=== PATIENT | female | born 1985 | race Caucasian/White ===

== ENCOUNTER 2018-01-15 09:59 | Emergency (ER) | payer OTHER, SELFPAY ==
[2018-01-15 10:04] VITALS: BP 122/70; PULSE 78; RESP 16; O2SAT 97; BMI 23.9
--- NOTE | 2018-01-15 10:08 | DI.US.S_ITS ---
PROCEDURE: US OB <= 14 WEEKS FETUS INDICATIONS: BLEEDING, CRAMPING OUTSIDE/PRIOR DATING DATA: Last menstrual period (LMP): Unknown. LMP-based estimated date of delivery (GINNY): Unknown. First dating scan (date and location): 01/15/18. Estimated date of delivery (GINNY) from first dating scan: 09/11/18. TECHNIQUE: Real-time scanning was performed of the fetus and maternal pelvic organs, with image documentation. Endovaginal scanning was also performed to better visualize the fetus and maternal ovaries. COMPARISON: None. FINDINGS: Embryo: A single intrauterine is identified. The pole is well visualized, demonstrating heart motion detected at 95 beats per minute. The pole has a crown-rump length that measures approximately 3 mm, corresponding to an estimated gestational age of 5 weeks 6 days. A yolk sac is also well seen. There is a small subchorionic hemorrhage identified, which encompasses approximately 25% of the gestational sac (measuring approximately 0.4 x 0.2 x 1.4 cm). Maternal organs: Ovaries are normal in size. There may be a corpus luteum on the right. Limited images through the kidneys demonstrate no hydronephrosis. IMPRESSION: 1. Single live intrauterine of 5 weeks 6 days (current sonographic due date of 09/11/18). 2. Small subchorionic hemorrhage. Dictated by: Kenneth Carson M.D. on 01/15/2018 at 10:04 Approved by: Kenneth Carson M.D. on 01/15/2018 at 10:07
--- NOTE | 2018-01-15 10:14 | ED.FEMALEGU ---
HPI - Female Genitourinary General Chief complaint: Vaginal Bleeding Stated complaint: pelvic pain with bleeding. 7 weeks Time Seen by Provider: 01/15/18 10:05 Source: patient and family Mode of arrival: ambulatory Limitations: no limitations History of Present Illness HPI Narrative: 32-year-old nonsmoking female presents with her mother for evaluation of vaginal bleeding while . 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 She complains of episodic lower abdominal cramping type pain without provocation or palliation. Additionally she has had minimal spotting for the past day or 2. She has been taking vitamins. She denies any fever or chills but has felt weak, overly tired and nauseated for the past few days. MD Complaint: vaginal bleeding Onset (ago): day(s) Location: suprapubic Female Urogenital Radiation: Non-Radiating Severity: mild Quality: Aching and Cramping Duration: intermittent Relieving factors: none Exacerbating factors: none Vaginal discharge: blood Patient : Yes Associated symptoms: vaginal bleeding Related Data : 1 Para: 0 Home Medications Medication Instructions Recorded Confirmed PNV cmb#95-ferrous fumarate-FA 1 tab PO DAILY 01/15/18 01/15/18 [] Allergies Allergy/AdvReac Type Severity Reaction Status Date / Time Penicillins Allergy Unknown Verified 01/15/18 11:32 Sulfa (Sulfonamide Allergy Unknown Verified 01/15/18 11:32 Antibiotics) narcotics AdvReac Severe IBS Uncoded 01/15/18 11:32 increase Review of Systems Review of Systems All systems reviewed & are unremarkable except as noted in HPI and below Constitutional Denies chills, Denies fever(s), Denies lethargy and Denies weakness Eyes Denies change in vision, Denies eye discharge, Denies irritation and Denies loss of vision ENT Ears, Nose, Mouth, and Throat: Denies change in voice, Denies neck pain and Denies sore throat Cardiovascular Denies chest pain, Denies irregular heart rhythm, Denies lightheadedness, Denies palpitations, Denies dyspnea, Denies dyspnea on exertion and Denies orthopnea Respiratory Denies cough, Denies dyspnea, Denies dyspnea on exertion and Denies wheezing Gastrointestinal Gastrointestinal: Denies abdominal pain, Denies change in bowel habits, Denies diarrhea, Denies nausea and Denies vomiting Genitourinary Reports abnormal vaginal bleeding, Denies hematuria, Denies flank pain, Denies urinary incontinence and Denies urinary urgency Musculoskeletal Denies neck pain Integumentary/Breasts Denies pruritus, Denies erythema, Denies rash and Denies wounds Neurologic Denies confusion, Denies loss of vision and Denies weakness Psychiatric Denies anxiety, Denies confusion, Denies depression, Denies homicidal ideation and Denies suicidal ideation Endocrine Denies palpitations Hematologic/Lymphatic Denies easy bruising Allergic/Immunologic Denies wheezing Exam Narrative Exam Narrative: GENERAL: 32-year-old female obviously very anxious, presents with her mother HEAD: Atraumatic. Normocephalic. No temporal or scalp tenderness. EYES: Pupils equal round and reactive. Extraocular motions intact. No scleral icterus. No injection or drainage. ENT: Nose without bleeding, purulent drainage or septal hematoma. Throat without erythema, tonsillar hypertrophy or exudate. Uvula midline. Airway patent. NECK: Trachea midline. No JVD or lymphadenopathy. Supple, nontender, no meningeal signs. CARDIOVASCULAR: Regular rate and rhythm without murmurs, gallops, or rubs. RESPIRATORY: Clear to auscultation. Breath sounds equal bilaterally. No wheezes, rales, or rhonchi. GASTROINTESTINAL: Abdomen soft, mild tenderness, nondistended. No hepato-splenomegaly, or palpable masses. No guarding. EXTREMITIES: No clubbing, cyanosis, or edema. No joint tenderness, effusion, or edema noted. BACK: Nontender without deformity or crepitance. No flank tenderness. NEURO: AOx3. SKIN: No rash or erythema. Initial Vital Signs Initial Vital Signs: Vital Signs Pulse Rate 78 01/15/18 10:04 Respiratory Rate 16 01/15/18 10:04 Blood Pressure 122/70 01/15/18 10:04 Pulse Oximetry 97 01/15/18 10:04 Course Orders Ordered: ED Orders 01/15/18 10:08 US OB <= 14 weeks fetus Stat 01/15/18 10:20 ABO RH Type Stat Complete Blood Count AUTO DIFF Stat HCG Quantitative Stat Vital Signs - 8 hr 01/15/18 10:04 01/15/18 12:02 Pulse Rate 78 66 Respiratory Rate 16 14 Blood Pressure 122/70 Blood Pressure [Left Arm] 113/57 L Pulse Oximetry 97 100 MDM - Female Genitourinary Medical Records Attestation: I reviewed the patient's medical records. Lab Data Attestation: I reviewed the patient's lab results. Result diagrams: 01/15/18 10:20 Lab Results 01/15/18 01/15/18 01/15/18 Range/Units 10:20 10:20 10:20 WBC 9.0 (4.5-11.0) X10^3/uL RBC 4.62 (4.0-5.2) X10^6/uL Hgb 13.9 (12.0-16.0) g/dL Hct 40.1 (36-46) % MCV 86.7 (80-100) fL MCH 30.0 (26-34) PG MCHC 34.5 (30-36) % RDW 12.7 (11.6-14.8) % Plt Count 216 (150-400) X10^3/uL Neut % (Auto) 65.6 (50-75) % Lymph % (Auto) 29.0 (25-40) % [place] % (Auto) 4.7 (3-14) % Eos % (Auto) 0.2 L (2-4) % Baso % (Auto) 0.5 (0-2) % Neut # (Auto) 5900 (7325-1723) /uL HCG, Quant 44105 mIU/mL Blood Type B Positive Urine Dip Bedside Urine Glucose Negative Bedside Urine Bilirubin - Negative Bedside Urine Ketone - Negative Urine Specific [place] 1.010 Bedside Urine Occult Blood - Negative Bedside Urine pH 6.5 Bedside Urine Protein - Negative Bedside Urine Urobilinogen - Negative Bedside Urine Nitrite - Negative Bedside Urine Leukocytes - Negative Esterase Imaging Data Pelvic US: Radiologist's impression: [address] [address] Ultrasound Report Signed Patient: Vanna Eli AnneMR#: [id number] : 1985Acct:[id number] Age/Sex: 32 / FDate of Service: 01/15/18 Loc: ED Accession Number: [id number] Procedure: US OB <= 14 weeks fetus Ordering Provider: Mike Colby D.O. PROCEDURE: US OB <= 14 WEEKS FETUS INDICATIONS: BLEEDING, CRAMPING OUTSIDE/PRIOR DATING DATA: Last menstrual period (LMP): Unknown. LMP-based estimated date of delivery (GINNY): Unknown. First dating scan (date and location): 01/15/18. Estimated date of delivery (GINNY) from first dating scan: 09/11/18. TECHNIQUE: Real-time scanning was performed of the fetus and maternal pelvic organs, with image documentation. Endovaginal scanning was also performed to better visualize the fetus and maternal ovaries. COMPARISON: None. FINDINGS: Embryo: A single intrauterine is identified. The pole is well visualized, demonstrating heart motion detected at 95 beats per minute. The pole has a crown-rump length that measures approximately 3 mm, corresponding to an estimated gestational age of 5 weeks 6 days. A yolk sac is also well seen. There is a small subchorionic hemorrhage identified, which encompasses approximately 25% of the gestational sac (measuring approximately 0.4 x 0.2 x 1.4 cm). Maternal organs: Ovaries are normal in size. There may be a corpus luteum on the right. Limited images through the kidneys demonstrate no hydronephrosis. IMPRESSION: 1. Single live intrauterine of 5 weeks 6 days (current sonographic due date of 09/11/18). 2. Small subchorionic hemorrhage. Dictated by: Kenneth Carson M.D. on 01/15/2018 at 10:04 Approved by: Kenneth Carson M.D. on 01/15/2018 at 10:07 Discharge Plan Departure Patient Disposition: Home Clinical Impression: Bleeding in early Discharge Date/Time: 01/15/18 12:30 Interventions: ED Discharge Assessment Last Done: 01/15/18 12:29 Instructions: DI for Vaginal Bleeding During Activity Restrictions/Additional Instructions: *You have been diagnosed with [ vaginal bleeding during ] *What to do: * continue to take medications as directed * no intercourse until clearedy by your doctor *Follow up with your OB provider in 2-3 days, call for an appointment. Let them know you were seen in the Emergency Department and that we ask that you be seen in follow up *Return to ER if you should have any new, worsening or concerning symptoms, such as [ increased pain, bleeding through more than 1 pad per hour for multiple hours, other bothersome symptoms] Prescriptions: No Action PNV cmb#95-ferrous fumarate-FA [] 28 mg iron- 800 mcg Tablet 1 tab PO DAILY RF: 0 Referrals: Eva Mendoza MD [Physician] - Marissa Flaherty MD [Primary Care Provider] -
[2018-01-15 10:42] LABS: Add Manual Diff / Slide Review NO; Basophils Percent Auto 0.5 % (0-2); Eosinophils Percent Auto 0.2 % (2-4); Hematocrit 40.1 % (36-46); Hemoglobin 13.9 g/dL (12.0-16.0); Mean Corpuscular HGB Conc 34.5 % (30-36); Mean Corpuscular Volume 86.7 fL (80-100); Monocytes Percent Auto 4.7 % (3-14); Neutrophils Absolute Auto 5900 /uL (3000-5900); Neutrophils Percent Auto 65.6 % (50-75); Platelet Count 216 X10^3/uL (150-400); Red Blood Cell Count 4.62 X10^6/uL (4.0-5.2); Red Cell Distribution Width 12.7 % (11.6-14.8)
[2018-01-15 11:45] LABS: HCG Quantitative /Beta subunit 26391 mIU/mL
[2018-01-15 12:02] VITALS: BP 113/57; PULSE 66; RESP 14; O2SAT 100
== END 2018-01-15 12:30 | disposition home or self-care (01) ==
PROVIDERS: Emergency Provider Emergency Medicine; PCP Family Medicine
DX: O20.9 Hemorrhage in early pregnancy, unspecified (principal); Z3A.01 Less than 8 weeks gestation of pregnancy
CPT/HCPCS: 36415; 76801; 76817; 81003; 84702; 85025; 86900; 86901; 99282; 99284

== ENCOUNTER 2019-10-20 18:01 | Emergency (ER) | payer OTHER, MEDICAID, SELFPAY ==
[2019-10-20 18:13] VITALS: BP 113/76; PULSE 79; RESP 16; TEMP 36.4; O2SAT 100; BMI 22.0
[2019-10-20 20:16] LABS: Add Manual Diff / Slide Review NO; Basophils Absolute Auto 0 /uL (0-100); Basophils Percent Auto 0.5 % (0-2); Eosinophils Absolute Auto 0 /uL (0-450); Eosinophils Percent Auto 0.3 % (2-4); Hematocrit 41.2 % (36-46); Hemoglobin 13.8 g/dL (12.0-16.0); Lymphocytes Absolute Auto 2700 /uL (1100-4500); Mean Corpuscular HGB Conc 33.5 % (30-36); Mean Corpuscular Hemoglobin 29.6 PG (26-34); Mean Corpuscular Volume 88.4 fL (80-100); Monocytes Absolute Auto 300 /uL (0-900); Monocytes Percent Auto 4.3 % (3-14); Neutrophils Absolute Auto 5000 /uL (1500-7000); Neutrophils Percent Auto 61.9 % (50-75); Platelet Count 200 X10^3/uL (150-400); Red Blood Cell Count 4.66 X10^6/uL (4.0-5.2); Red Cell Distribution Width 12.7 % (11.6-14.8); White Blood Cell Count 8.1 X10^3/uL (4.5-11.0)
--- NOTE | 2019-10-20 20:17 | DI.CT.S_ITS ---
PROCEDURE: CT ABDOMEN PELVIS W CON INDICATIONS: L abd and back pain, bloated, hx of IBS TECHNIQUE: After the administration of intravenous contrast, 5 mm thick sections acquired from the diaphragm to the symphysis. 5 mm coronal and sagittal reformats were acquired. For radiation dose reduction, the following was used: automated exposure control, adjustment of mA and/or kV according to patient size. COMPARISON: None. FINDINGS: Image quality: Excellent. ABDOMEN: Lung bases: Lung bases are clear. Heart size is normal. Solid organs: Liver is normal in size and enhancement. Gallbladder is unremarkable . Biliary system is non dilated. Pancreas enhances normally. Spleen is normal in size and enhancement. No adrenal nodules. Kidneys demonstrate normal size and enhancement, without hydronephrosis. Peritoneum and bowel: Bowel loops demonstrate normal wall thickness and caliber. The appendix is thin walled and gas filled. A moderate amount of stool is present throughout the colon. No free fluid or air. Nodes and vessels: No retroperitoneal or mesenteric adenopathy by size criteria. Aorta and inferior vena cava are normal in size. Miscellaneous: No ventral hernias. PELVIS: Genitourinary: Bladder wall thickness is normal. The uterus and right ovary are unremarkable. There is a crenulated appearing left ovarian cyst suggesting recent follicular cyst rupture. Miscellaneous: No inguinal hernias or adenopathy. Bones: No suspicious bony lesions. No vertebral body compression fractures. IMPRESSION: 1. No acute intra-abdominal findings. Normal appendix. 2. Moderate amount of stool throughout the colon suggesting constipation. 3. Crenulated left ovarian cysts suggesting recent follicular cyst rupture. Dictated by: Loree Leggett M.D. on 10/20/2019 at 20:56 Approved by: Loree Leggett M.D. on 10/20/2019 at 21:01
[2019-10-20 20:34] LABS: Lactate (Lactic Acid) 0.7 mmol/L (0.7-2.1)
[2019-10-20 20:35] LABS: Alanine Aminotransferase 17 IU/L (<35); Albumin 4.6 g/dL (3.5-5.0); Albumin Globulin Ratio 1.6 (1.0-2.8); Alkaline Phosphatase 61 U/L (38-126); Aspartate Aminotransferase 25 IU/L (14-36); BUN Creatinine Ratio 22.8 (6-22); Bilirubin Total 0.5 mg/dL (0.2-1.3); Blood Urea Nitrogen 13 mg/dL (7-17); Calcium 9.4 mg/dL (8.4-10.2); Carbon Dioxide 26 mmol/L (22-32); Chloride 103 mmol/L (98-107); Estimated Glomerular Filt Rate > 60.0 mL/min (>60); Globulin 2.9 g/dL (1.7-4.1); Glucose 84 mg/dL (70-100); HEMOLYSIS < 15 (0-50); Lipase 65 U/L (23-300); Potassium 4.1 mmol/L (3.4-5.1); Sodium 137 mmol/L (137-145); Total Protein 7.5 g/dL (6.3-8.2)
--- NOTE | 2019-10-20 21:43 | ED.ABDPAIN ---
HPI - Abdominal Pain <TRACE Angeles - Last Filed: 10/20/19 22:06> General Chief Complaint: Abdominal Pain Stated Complaint: states abdominal pain Time Seen by Provider: 10/20/19 19:28 Source: patient Mode of arrival: Ambulatory Limitations: no limitations History of Present Illness HPI narrative: This is a 34-year-old female, nonsmoker, who has history of IBS predominantly diarrhea with occasional constipation presents to ED with chief complain of abdominal pain for last 3 weeks. Patient reports he started as left lower quadrant pain now pain is diffuse but mostly in bilateral in lower abdomen and feeling bloated and radiating to bilateral low back. She describes her pain as intermittent and pain improves when she is in position and nothing improves the pain. She felt sweaty and flushed today but denies fever, chills, nausea or vomiting, diarrhea. She had normal bowel movement without blood at 4:00 p.m. today. She takes daily spoonful psyllium to prevent constipation. She denies urinary symptoms such as dysuria, frequency, urgency, hematuria. She reports normal appetite. She had colonoscopy in 2011 and endoscopy in 2012 at [facility] had with normal results. She had delivered her daughter 13 months ago by forceps assisted and is nursing. She has recurring menstruation but it has been very irregular. LMP September 2019 and she had it for 3 weeks alternating from heavy vaginal bleeding to very light spotting for at least 2-3 cycles. She reports occasional unusual vaginal discharge with mucousy looking with odor. She reports has an appointment with her primary care physician Dr. veliz and [facility] next week. Related Data Home Medications Medication Instructions Recorded Confirmed PNV cmb#95-ferrous fumarate-FA 1 tab PO DAILY 01/15/18 02/16/18 [] cholecalciferol (vitamin D3) 25 1,000 unit PO DAILY 02/16/18 02/16/18 mcg (1,000 unit) capsule omega-3 fatty acids 1,000 mg 1,000 mg PO DAILY 02/16/18 02/16/18 capsule Allergies Allergy/AdvReac Type Severity Reaction Status Date / Time Penicillins Allergy Unknown Verified 02/16/18 16:39 Sulfa (Sulfonamide Allergy Unknown Verified 02/16/18 16:39 Antibiotics) narcotics AdvReac Severe IBS Uncoded 02/16/18 16:39 increase Review of Systems <TRACE Angeles - Last Filed: 10/20/19 22:06> Review of Systems Narrative: General: See HPI HEENT: Denies sinus pain, ear pain, sore throat, difficulty swallowing, dizziness. Respiratory: Denies dyspnea, cough, wheezing, hemoptysis, sputum. Cardiovascular: Denies chest pain, palpitations, orthopnea, edema. Gastrointestinal: See HPI : Denies dysuria, frequency, incontinence, hematuria, urinary retention. Musculoskeletal: Denies weakness, joint pain or bony pain. Skin: Denies rash, skin lesions, or other. Neurologic: Denies weakness, headache, numbness, change in speech, confusion, seizures, incoordination. Psychiatric: No concerning psychosocial issues. 12-point review of systems is negative except for those stated above. Patient History <TRACE Angeles - Last Filed: 10/20/19 22:06> Medical History IBS (irritable bowel syndrome) (Acute) Social History Smoking Status: Never smoker Smoking Status: Never smoker Substance Use Type: does not use Exam <TRACE Angeles - Last Filed: 10/20/19 22:06> Narrative Exam Narrative: GEN: Alert, oriented x 3, well appearing and nourished, and in no acute distress. Head: Normal cephalic, atraumatic. No scalp or temporal tenderness, palpable mass or rash. EYES: Pupils are equal, round, and reactive to light and accommodation. Extraocular muscles are intact bilaterally. There is no subconjunctival hemorrhage, exudate and sclera non-icteric. ENT: Hearing grossly intact. Nose without bleeding, purulent discharge or deviation. Mucous membrane moist, no mucosal lesion. Throat without erythema, tonsillar hypertrophy or exudate. Uvula in midline, airway patent. Neck: Trachea in midline. No JVD, non-tender without lymphadenopathy. No masses or thyroid megaly. Supple, non-tender and no meningeal signs. CARDIAC: Normal regular rate and rhythm without murmurs, gallops, or rubs. No chest wall tenderness. No peripheral edema, cyanosis or pallor. Capillary refill is less than 2 seconds. RESPIRATORY: Lungs are clear to auscultate bilaterally. No cough, wheezes, rales, or rhonchi. No stridor, respiratory distress, increase work of breathing, or accessary muscle used. ABD: Abdomen soft but mildly distended. No guarding or rebound tenderness to palpate. Tender to palpate in bilateral lower quadrants. Bowel sounds are normal in all 4 quadrants. There is no palpable masses or organomegaly. EXT: Full painless ROM of all extremities with no loss of sensation, strength, effusion or edema. SKIN: Warm, dry, normal color for patient. No erythema, lesions or rash over visible areas. BACK: Nontender without deformity or crepitance. No flank tenderness. NEUROLOGICAL: Alert and oriented to place, time and person. Sensation and motor function intact bilaterally. No facial droops, dysphasia. PSYCHIATRIC: Good judgement and reason, without hallucinations, abnormal affect or abnormal behaviors during the examination. Patient is not suicidal. Initial Vital Signs Initial Vital Signs: Vital Signs Temperature 97.6 F 10/20/19 18:13 Pulse Rate 79 10/20/19 18:13 Respiratory Rate 16 10/20/19 18:13 Blood Pressure 113/76 10/20/19 18:13 Pulse Oximetry 100 10/20/19 18:13 External Female Exam: normal external appearance Speculum Exam - Vagina: normal appearance of the vagina, normal vaginal discharge and nontender Speculum Exam - Cervix: normal appearance of the cervix and nontender Bimanual Exam- Vagina & Uterus: normal palpation, uterine mobility normal, No tender and soft Bimanual Exam- Adnexa, other: tender on the left and no masses noted <Mike Colby DO - Last Filed: 10/21/19 03:46> Initial Vital Signs Initial Vital Signs: Vital Signs Temperature 97.6 F 10/20/19 18:13 Pulse Rate 79 10/20/19 18:13 Respiratory Rate 16 10/20/19 18:13 Blood Pressure 113/76 10/20/19 18:13 Pulse Oximetry 100 10/20/19 18:13 Scores <TRACE Angeles - Last Filed: 10/20/19 22:06> GCS [place] coma scale eye opening: Spontaneous [place] coma scale verbal response: Orientated [place] coma scale motor response: Obey commands [place] coma scale total score: 15 qSOFA Altered Mental Status (GCS <15): No Respiratory rate greater than/equal to 22: No Systolic blood pressure less than or equal to 100: No qSOFA Total: 0 0-1 Not High Risk 1-3 High risk Course <Joe Copeland TRACE - Last Filed: 10/20/19 22:06> Orders Ordered: ED Orders 10/20/19 20:07 Complete Blood Count AUTO DIFF Stat Comprehensive Metabolic Panel Stat Lactate (Lactic Acid) Stat Lipase Stat 10/20/19 20:17 CT abdomen pelvis w con Stat 10/20/19 21:34 Genital Culture Stat Wet Prep Tric BV Christen Stat Vital Signs Vital signs: Vital Signs - 8 hr 10/20/19 22:15 Pulse Rate 66 Respiratory Rate 14 Blood Pressure 111/72 Pulse Oximetry 99 <Mike Colby DO - Last Filed: 10/21/19 03:46> Orders Ordered: ED Orders 10/20/19 20:07 Complete Blood Count AUTO DIFF Stat Comprehensive Metabolic Panel Stat Lactate (Lactic Acid) Stat Lipase Stat 10/20/19 20:17 CT abdomen pelvis w con Stat 10/20/19 21:34 Genital Culture Stat Wet Prep Tric BV Christen Stat Vital Signs Vital signs: Vital Signs - 8 hr 10/20/19 22:15 Pulse Rate 66 Respiratory Rate 14 Blood Pressure 111/72 Pulse Oximetry 99 MDM - Abdominal Pain <Joe CopelandTRACE - Last Filed: 10/20/19 22:06> Differential Diagnosis Differential diagnosis: Likely abdominal pain, acute appendicitis, constipation and other (Ovarian cyst, ovarian torsion, diverticulitis, diverticulosis, colitis) Medical Records Attestation: I reviewed the patient's medical records. Lab Data Attestation: I reviewed the patient's lab results. Result diagrams: 10/20/19 20:07 10/20/19 20:07 Labs: Lab Results 10/20/19 10/20/19 10/20/19 Range/Units 20:07 20:07 20:07 WBC 8.1 (4.5-11.0) X10^3/uL RBC 4.66 (4.0-5.2) X10^6/uL Hgb 13.8 (12.0-16.0) g/dL Hct 41.2 (36-46) % MCV 88.4 (80-100) fL MCH 29.6 (26-34) PG MCHC 33.5 (30-36) % RDW 12.7 (11.6-14.8) % Plt Count 200 (150-400) X10^3/uL Neut % (Auto) 61.9 (50-75) % Lymph % (Auto) 33.0 (25-40) % [place] % (Auto) 4.3 (3-14) % Eos % (Auto) 0.3 L (2-4) % Baso % (Auto) 0.5 (0-2) % Neut # (Auto) 5000 (7538-9089) /uL Lymph # (Auto) 2700 (5665-6660) /uL [place] # (Auto) 300 (0-900) /uL Eos # (Auto) 0 (0-450) /uL Baso # (Auto) 0 (0-100) /uL Sodium 137 (137-145) mmol/L Potassium 4.1 (3.4-5.1) mmol/L Chloride 103 (98-107) mmol/L Carbon Dioxide 26 (22-32) mmol/L BUN 13 (7-17) mg/dL Creatinine 0.57 (0.52-1.04) mg/dL Estimated GFR > 60.0 (>60) mL/min BUN/Creatinine Ratio 22.8 H (6-22) Glucose 84 (70-100) mg/dL Lactate 0.7 (0.7-2.1) mmol/L Calcium 9.4 (8.4-10.2) mg/dL Total Bilirubin 0.5 (0.2-1.3) mg/dL AST 25 (14-36) IU/L ALT 17 (<35) IU/L Alkaline Phosphatase 61 (38-126) U/L Total Protein 7.5 (6.3-8.2) g/dL Albumin 4.6 (3.5-5.0) g/dL Globulin 2.9 (1.7-4.1) g/dL Albumin/Globulin Ratio 1.6 (1.0-2.8) Lipase 65 (23-300) U/L Point of care testing: Point of Care Testing Test Results Negative Urine Dip Bedside Urine Glucose Negative Bedside Urine Bilirubin - Negative Bedside Urine Ketone - Negative Urine Specific [place] 1.010 Bedside Urine Occult Blood - Negative Bedside Urine pH 6.0 Bedside Urine Protein - Negative Bedside Urine Urobilinogen - Negative Bedside Urine Nitrite - Negative Bedside Urine Leukocytes - Negative Esterase Imaging Data CT scan - abdomen/pelvis: Radiologist's Impression: [address] [address] [address] Scan Report Signed Patient: Vanna ElieMR#: [id number] : 1985Acct:[id number] Age/Sex: 34 / FDate of Service: 10/20/19 Loc: ED Accession Number: [id number] Procedure: CT abdomen pelvis w con Ordering Provider: Joe Copeland PROCEDURE: CT ABDOMEN PELVIS W CON INDICATIONS: L abd and back pain, bloated, hx of IBS TECHNIQUE: After the administration of intravenous contrast, 5 mm thick sections acquired from the diaphragm to the symphysis. 5 mm coronal and sagittal reformats were acquired. For radiation dose reduction, the following was used: automated exposure control, adjustment of mA and/or kV according to patient size. COMPARISON: None. FINDINGS: Image quality: Excellent. ABDOMEN: Lung bases: Lung bases are clear. Heart size is normal. Solid organs: Liver is normal in size and enhancement. Gallbladder is unremarkable . Biliary system is non dilated. Pancreas enhances normally. Spleen is normal in size and enhancement. No adrenal nodules. Kidneys demonstrate normal size and enhancement, without hydronephrosis. Peritoneum and bowel: Bowel loops demonstrate normal wall thickness and caliber. The appendix is thin walled and gas filled. A moderate amount of stool is present throughout the colon. No free fluid or air. Nodes and vessels: No retroperitoneal or mesenteric adenopathy by size criteria. Aorta and inferior vena cava are normal in size. Miscellaneous: No ventral hernias. PELVIS: Genitourinary: Bladder wall thickness is normal. The uterus and right ovary are unremarkable. There is a crenulated appearing left ovarian cyst suggesting recent follicular cyst rupture. Miscellaneous: No inguinal hernias or adenopathy. Bones: No suspicious bony lesions. No vertebral body compression fractures. IMPRESSION: 1. No acute intra-abdominal findings. Normal appendix. 2. Moderate amount of stool throughout the colon suggesting constipation. 3. Crenulated left ovarian cysts suggesting recent follicular cyst rupture. Dictated by: Loree Leggett M.D. on 10/20/2019 at 20:56 Approved by: Loree Leggett M.D. on 10/20/2019 at 21:01 [facility] Narrative Medical decision making narrative: This is a healthy 34 year female who has history of IBS and vaginal delivery with forceps assisted 13 months ago presents to ED with abdominal pain for last 3 weeks. Urine test was negative, urine test without indications for UTI. No CVA tenderness or mid spinal tenderness. Abdomen was soft but tender to palpate in left lower quadrant with mild distension and intact bowel sounds in all quadrants. Patient is afebrile with within normal range of vital signs. Lab tests charge are assuring without leukocytosis, normal chemistry test and normal lactate. Considered pelvic ultrasound but given patient has history of IBS abdominal/pelvic CT was ordered at this time. CT test indicates moderate amount of stool throughout the colon suggesting constipation with normal appendix. It is indicated cranial rated left ovarian cyst suggesting recent follicular cyst rupture. Vaginal/pelvic physical exam was unremarkable but tender to palpate in left ovary. No cervical motion tenderness or uterine tenderness. Genital culture is pending. Wet prep was negative for clue cells, yeast or Trichomonas. Patient informed that she will receive a phone call from us if she requires antibiotic medication treatment. Advised to take over the counter Tylenol and or Motrin as needed for discomfort. Return precautions were discussed with patient and patient advised to follow-up with her primary care physician next week as scheduled. Patient verbalized understanding and agreement with treatment plan. <Mike Colby, DO - Last Filed: 10/21/19 03:46> Lab Data Labs: Lab Results 10/20/19 10/20/19 10/20/19 Range/Units 20:07 20:07 20:07 WBC 8.1 (4.5-11.0) X10^3/uL RBC 4.66 (4.0-5.2) X10^6/uL Hgb 13.8 (12.0-16.0) g/dL Hct 41.2 (36-46) % MCV 88.4 (80-100) fL MCH 29.6 (26-34) PG MCHC 33.5 (30-36) % RDW 12.7 (11.6-14.8) % Plt Count 200 (150-400) X10^3/uL Neut % (Auto) 61.9 (50-75) % Lymph % (Auto) 33.0 (25-40) % [place] % (Auto) 4.3 (3-14) % Eos % (Auto) 0.3 L (2-4) % Baso % (Auto) 0.5 (0-2) % Neut # (Auto) 5000 (8417-3335) /uL Lymph # (Auto) 2700 (4962-9290) /uL [place] # (Auto) 300 (0-900) /uL Eos # (Auto) 0 (0-450) /uL Baso # (Auto) 0 (0-100) /uL Sodium 137 (137-145) mmol/L Potassium 4.1 (3.4-5.1) mmol/L Chloride 103 (98-107) mmol/L Carbon Dioxide 26 (22-32) mmol/L BUN 13 (7-17) mg/dL Creatinine 0.57 (0.52-1.04) mg/dL Estimated GFR > 60.0 (>60) mL/min BUN/Creatinine Ratio 22.8 H (6-22) Glucose 84 (70-100) mg/dL Lactate 0.7 (0.7-2.1) mmol/L Calcium 9.4 (8.4-10.2) mg/dL Total Bilirubin 0.5 (0.2-1.3) mg/dL AST 25 (14-36) IU/L ALT 17 (<35) IU/L Alkaline Phosphatase 61 (38-126) U/L Total Protein 7.5 (6.3-8.2) g/dL Albumin 4.6 (3.5-5.0) g/dL Globulin 2.9 (1.7-4.1) g/dL Albumin/Globulin Ratio 1.6 (1.0-2.8) Lipase 65 (23-300) U/L Point of care testing: Point of Care Testing Test Results Negative Urine Dip Bedside Urine Glucose Negative Bedside Urine Bilirubin - Negative Bedside Urine Ketone - Negative Urine Specific [place] 1.010 Bedside Urine Occult Blood - Negative Bedside Urine pH 6.0 Bedside Urine Protein - Negative Bedside Urine Urobilinogen - Negative Bedside Urine Nitrite - Negative Bedside Urine Leukocytes - Negative Esterase Discharge Plan Departure Patient Disposition: Home Clinical Impression: Ruptured cyst of left ovary Abdominal pain Qualifiers: Abdominal location: left lower quadrant Qualified Code(s): R10.32 - Left lower quadrant pain Constipation Qualifiers: Constipation type: unspecified constipation type Qualified Code(s): K59.00 - Constipation, unspecified Discharge Date/Time: 10/20/19 22:00 Instructions: Constipation, DI for Ovarian Cyst, DI for Abdominal Pain-Adult Activity Restrictions/Additional Instructions: You have been diagnosed with abdominal pain likely from recently follicular ruptured ovarian cyst and IBS/constipation. Lab tests are assuring. Urine test without indication for infection. Your receive a phone call from us if you require antibiotic medication from vaginal cultures from today.]. What to do: *Take your medications as directed. You can take [id number] Tylenol and or Motrin as needed for discomfort. Try [id number] MiraLax to help with constipation and bloating. *Follow up with your primary care provider in 2-3 days, call for an appointment. Let them know you were seen in the ED and that we asked you to be seen in follow up. *Return to ED if you have any new, worsening, or concerning symptoms, such as [fever, chest pain, breathing difficulty, unable to tolerate fluids, feel like fainting, worsening pain or any acute concerns]. Prescriptions: No Action omega-3 fatty acids [Fish Oil Concentrate] 1,000 mg capsule 1,000 mg PO DAILY RF: 0 cholecalciferol (vitamin D3) 1,000 unit capsule 1,000 unit PO DAILY RF: 0 PNV cmb#95-ferrous fumarate-FA [] 28 mg iron- 800 mcg Tablet 1 tab PO DAILY RF: 0 <Mike Colby DO - Last Filed: 10/21/19 03:46> Cosign ED Attending Cosignature Attestation: I was immediately available in the department for consultation. This documentation has been reviewed and I agree with assessment and plan. Supervised by Mike Colby DO
[2019-10-20 22:15] VITALS: BP 111/72; PULSE 66; RESP 14; O2SAT 99
== END 2019-10-20 22:00 | disposition home or self-care (01) ==
PROVIDERS: Emergency Provider Nurse Practitioner Family; PCP Family Medicine
DX: N83.202 Unspecified ovarian cyst, left side (principal); R10.32 Left lower quadrant pain; K59.00 Constipation, unspecified; Z87.19 Personal history of other diseases of the digestive system
CPT/HCPCS: 36415; 74177; 80053; 81003; 81025; 83605; 83690; 85025; 87070; 87205; 87210; 99283; 99284; Q9967

== ENCOUNTER 2021-08-26 16:24 | Emergency (ER) | payer OTHER, MEDICAID, SELFPAY ==
[2021-08-26 16:35] VITALS: BP 118/79; PULSE 91; RESP 19; TEMP 36.8; O2SAT 97; BMI 23.1
--- NOTE | 2021-08-26 17:54 | DI.US.S_ITS ---
PROCEDURE: US PELVIC COMPLETE INDICATIONS: left pelvic pain TECHNIQUE: Real-time scanning was performed of the pelvic organs, with image documentation. Additional endovaginal scanning was necessary due to incomplete visualization of the adnexal and endometrial structures by transabdominal scanning. COMPARISON: [facility], CT, CT ABDOMEN PELVIS W CON, 10/20/2019, 20:43. FINDINGS: Uterus: Uterus is anteverted and normal in size at 9.5 x 3.0 x 4.4 cm. The myometrium is homogeneous. The endometrium measures 7.6 mm combined thickness. Ovaries: The right ovary measures 2.4 x 2.0 x 1.7 cm. The left ovary measures 3.8 x 2.9 x 3.2 cm. The ovaries have a normal sonographic appearance. Less than 12 follicles can be seen in each ovary. There is a cyst in the left ovary measuring 2.2 x 1.7 x 2.2 cm, compatible with a dominant ovarian follicle. No adnexal masses are seen. Other: No pathologic free abdominal or pelvic fluid. IMPRESSION: 1. A 2.2 x 1.7 x 2.2 cm cyst in the left ovary, compatible with a dominant ovarian follicle. 2. Normal uterus and right ovary. We strive to produce accurate, complete, and clear reports of imaging services. To assist us in improving patient care, this report was composed using standard report templates and voice recognition software. Therefore, it may contain abnormal punctuation, insertions and/or omissions. Occasional wrong-word or sound-alike substitutions may occur. Though we review the report and make efforts to correct it, we do recommend that the report be read carefully in proper context to recognize any text inaccuracies. Dictated by: Jnoah Trimble M.D. on 08/26/2021 at 19:44 Approved by: Jonah Trimble M.D. on 08/26/2021 at 19:47
--- NOTE | 2021-08-26 18:04 | ED.ABDPAIN ---
HPI - Abdominal Pain <Ankita Marie SENIOR ANIMATOR - Last Filed: 08/26/21 20:07> General Chief Complaint: Abdominal Pain Stated Complaint: abdominal pain-no fever since friday Time Seen by Provider: 08/26/21 16:52 Source: patient Mode of arrival: Family Vehicle History of Present Illness HPI narrative: This is a 36-year-old female who presents to the emergency department complaining of left pelvic and right upper quadrant pain for the last three days and this has been worsening. She states that she has a history of pelvic pain and thinks that she likely has endometriosis. She states that she is currently ovulating, is not on control, is monogamous with her partner, she is and three years . She states that she is having normal bowel movements, had two yesterday and one bowel movement today, denies any vomiting or diarrhea. Denies any blood in her urine or her stool, denies any dysuria, flank pain, shortness of breath, difficulty breathing, or other new concern. She states that she normally takes ibuprofen and Tylenol for this pain which she states occurs every two weeks but this time it is worse than usual, and her Tylenol and ibuprofen did not work. Patient states that she has a history of IBS but this is under control she has not had the symptoms recently. She states that she has a history of ovarian cysts, one as large as a tennis ball, all with spontaneous rupture is without any intervention. She denies any history of abdominal surgery, states that she has all of her organs. She is pending a laparoscopic evaluation for endometriosis in October. She denies any abnormal vaginal discharge, states that she has painful intercourse so she is not sexually active currently. Related Data Home Medications Medication Instructions Recorded Confirmed vit no.95-ferrous 1 tab PO DAILY 01/15/18 02/16/18 fumarate 28 mg-folic acid 800 mcg tablet () cholecalciferol (vitamin D3) 25 1,000 unit PO DAILY 02/16/18 02/16/18 mcg (1,000 unit) capsule omega-3 fatty acids 1,000 mg 1,000 mg PO DAILY 02/16/18 02/16/18 capsule (Fish Oil Concentrate) Previous Rx's Medication Instructions Recorded hydrocodone 5 mg-acetaminophen 325 1 tab PO TID PRN pain #10 tabs 06/19/22 mg tablet ketorolac 10 mg tablet 10 mg PO Q8H PRN pain #20 tabs 08/26/21 ondansetron HCl 4 mg tablet 4 mg PO DAILY PRN nausea and 08/26/21 vomiting #10 tabs Allergies Allergy/AdvReac Type Severity Reaction Status Date / Time Penicillins Allergy Unknown Verified 08/26/21 16:34 Sulfa (Sulfonamide Allergy Unknown Verified 08/26/21 16:34 Antibiotics) narcotics AdvReac Severe IBS Uncoded 08/26/21 16:34 increase Review of Systems <TRACE Segal - Last Filed: 08/26/21 20:07> Review of Systems Narrative: General: denies fever, chills, malaise, sweats, fatigue Head/Neck: denies headache, neck pain, dizziness Eyes: denies visual changes, eye pain Cardio: denies chest pain, palpitations, edema Respiratory: denies dyspnea, cough, orthopnea GI: Endorses abdominal pain primarily left lower pelvic and right upper without vomiting, or diarrhea, endorses nausea with significant pain but none currently : denies dysuria, hematuria, urinary retention, frequency or incontinence MSK: denies joint pain, muscle weakness Skin: denies rash, itching, skin lesions or other Neuro: denies numbness, tingling Patient History <TRACE Segal - Last Filed: 08/26/21 20:07> Medical History (Updated 08/26/21 @ 19:25 by TRACE Segal) IBS (irritable bowel syndrome) Social History Smoking Status: Never smoker Smoking Status: Never smoker Substance Use Type: does not use Exam <TRACE Segal - Last Filed: 08/26/21 20:07> Narrative Exam Narrative: Independently reviewed vitals signs and nursing notes. General: cooperative, comfortable, in no acute distress, well groomed Head: atraumatic, symmetrical facial expressions Neck: supple Eyes: equal round and reactive, EOMI, conjunctiva normal Nose: nares patent, no rhinorrhea Mouth/Throat: moist mucus membranes Cardiovascular: regular rate and rhythm, no peripheral edema, warm extremities Respiratory: normal effort, able to speak in complete sentences, no audible wheezing, stridor, or rales. No retractions or tachypnea. GI: tender to palpation or her left pelvic region and ovary, soft abdomen, nondistended, no masses, no exquisite tenderness with exam, without guarding or rebound. MSK: moves all extremities, neurovascularly intact, no weakness, normal tone Skin: brisk capillary refill, no rash, no erythema Neuro: normal speech and cognition, A&O x3 Psych: mental status is grossly normal, congruent mood, normal affect, pleasant and cooperative Initial Vital Signs Initial Vital Signs: Vital Signs Temperature 98.2 F 08/26/21 16:35 Pulse Rate 91 H 08/26/21 16:35 Respiratory Rate 08/26/21 16:35 Blood Pressure 118/79 08/26/21 16:35 Pulse Oximetry 97 08/26/21 16:35 Oxygen Delivery Method 08/26/21 16:35 <Sheila Zepeda DO - Last Filed: 08/26/21 23:15> Initial Vital Signs Initial Vital Signs: Vital Signs Temperature 98.2 F 08/26/21 16:35 Pulse Rate 91 H 08/26/21 16:35 Respiratory Rate 08/26/21 16:35 Blood Pressure 118/79 08/26/21 16:35 Pulse Oximetry 97 08/26/21 16:35 Oxygen Delivery Method 08/26/21 16:35 Course <TRACE Segal - Last Filed: 08/26/21 20:07> Orders Ordered: ED Orders 08/26/21 17:54 US pelvic complete Stat 08/26/21 18:20 Complete Blood Count AUTO DIFF Stat Comprehensive Metabolic Panel Stat HCG Quantitative /Beta subunit Stat Lipase Stat Discontinued Medications Hydrocodone Bitart/Acetaminophen (Hydrocodone/Acet 5/325 Tablet) 1 tab PO NOW ONE Stop: 08/26/21 17:55 Last Admin: 08/26/21 18:28 Dose: 1 tab Documented By: BERRY Ketorolac Tromethamine (Ketorolac 30 Mg/Ml Vial) 15 mg IV NOW ONE Stop: 08/26/21 17:55 Last Admin: 08/26/21 18:28 Dose: 15 mg Documented By: BERRY Ondansetron HCl (Ondansetron 4 Mg/2 Ml Inj) 4 mg IV NOW ONE Stop: 08/26/21 17:55 Last Admin: 08/26/21 18:28 Dose: 4 mg Documented By: CTS Vital Signs Vital signs: Vital Signs - 8 hr 08/26/21 16:35 08/26/21 19:52 Temperature 98.2 F Pulse Rate 91 H 62 Respiratory Rate 19 16 Blood Pressure 118/79 114/82 Pulse Oximetry 97 100 Oxygen Delivery Method Room Air Room Air <Sheila Zepeda DO - Last Filed: 08/26/21 23:15> Orders Ordered: ED Orders 08/26/21 17:54 US pelvic complete Stat 08/26/21 18:20 Complete Blood Count AUTO DIFF Stat Comprehensive Metabolic Panel Stat HCG Quantitative /Beta subunit Stat Lipase Stat Discontinued Medications Hydrocodone Bitart/Acetaminophen (Hydrocodone/Acet 5/325 Tablet) 1 tab PO NOW ONE Stop: 08/26/21 17:55 Last Admin: 08/26/21 18:28 Dose: 1 tab Documented By: BERRY Ketorolac Tromethamine (Ketorolac 30 Mg/Ml Vial) 15 mg IV NOW ONE Stop: 08/26/21 17:55 Last Admin: 08/26/21 18:28 Dose: 15 mg Documented By: BERRY Ondansetron HCl (Ondansetron 4 Mg/2 Ml Inj) 4 mg IV NOW ONE Stop: 08/26/21 17:55 Last Admin: 08/26/21 18:28 Dose: 4 mg Documented By: CTS Vital Signs Vital signs: Vital Signs - 8 hr 08/26/21 16:35 08/26/21 19:52 Temperature 98.2 F Pulse Rate 91 H 62 Respiratory Rate 19 16 Blood Pressure 118/79 114/82 Pulse Oximetry 97 100 Oxygen Delivery Method Room Air Room Air MDM - Abdominal Pain <TRACE Segal - Last Filed: 08/26/21 20:07> Lab Data Result diagrams: 08/26/21 18:20 08/26/21 18:20 Labs: Lab Results 08/26/21 08/26/21 08/26/21 Range/Units 18:20 18:20 18:20 WBC 9.2 (4.5-11.0) X10^3/uL RBC 4.69 (4.0-5.2) X10^6/uL Hgb 14.0 (12.0-16.0) g/dL Hct 40.4 (36-46) % MCV 86.3 (80-100) fL MCH 29.8 (26-34) PG MCHC 34.5 (30-36) % RDW 12.3 (11.6-14.8) % Plt Count 200 (150-400) X10^3/uL Neut % (Auto) 62.3 (50-75) % Lymph % (Auto) 32.3 (25-40) % [place] % (Auto) 4.4 (3-14) % Eos % (Auto) 0.2 L (2-4) % Baso % (Auto) 0.8 (0-2) % Neut # (Auto) 5700 (6705-1630) /uL Lymph # (Auto) 3000 (8238-8580) /uL [place] # (Auto) 400 (0-900) /uL Eos # (Auto) 0 (0-450) /uL Baso # (Auto) 100 (0-100) /uL Sodium 141 (137-145) mmol/L Potassium 3.8 (3.4-5.1) mmol/L Chloride 104 (98-107) mmol/L Carbon Dioxide 28 (22-32) mmol/L BUN 9 (7-17) mg/dL Creatinine 0.66 (0.52-1.04) mg/dL Estimated GFR > 60 (>60) mL/min BUN/Creatinine Ratio 13.6 (6-22) Glucose 98 (70-100) mg/dL Calcium 9.1 (8.4-10.2) mg/dL Total Bilirubin 0.4 (0.2-1.3) mg/dL AST 29 (14-36) IU/L ALT 25 (<35) IU/L Alkaline Phosphatase 39 (38-126) U/L Total Protein 7.6 (6.3-8.2) g/dL Albumin 4.7 (3.5-5.0) g/dL Globulin 2.9 (1.7-4.1) g/dL Albumin/Globulin Ratio 1.6 (1.0-2.8) Lipase 82 (23-300) U/L HCG, Quant < 2.4 mIU/mL Point of care testing: Point of Care Testing Test Results Negative Urine Dip Bedside Urine Glucose Negative Bedside Urine Bilirubin - Negative Bedside Urine Ketone - Negative Urine Specific [place] 1.010 Bedside Urine Occult Blood - Negative Bedside Urine pH 8.0 Bedside Urine Protein - Negative Bedside Urine Urobilinogen - Negative Bedside Urine Nitrite - Negative Bedside Urine Leukocytes - Negative Esterase Imaging Data US - DRY ROLLER: Radiologist's Impression: PROCEDURE:? US PELVIC COMPLETE ? INDICATIONS:? left pelvic pain ? TECHNIQUE:? Real-time scanning was performed of the pelvic organs, with image documentation.? Additional endovaginal scanning was necessary due to incomplete visualization of the adnexal and endometrial structures by transabdominal scanning.? ? COMPARISON:? [facility], CT, CT ABDOMEN PELVIS W CON, 10/20/2019, 20:43. ? FINDINGS:? ?? Uterus:? Uterus is anteverted and normal in size at 9.5 x 3.0 x 4.4 cm. The myometrium is homogeneous. ? The endometrium measures 7.6 mm combined thickness. ? Ovaries:? The right ovary measures 2.4 x 2.0 x 1.7 cm. The left ovary measures 3.8 x 2.9 x 3.2 cm. The ovaries have a normal sonographic appearance. Less than 12 follicles can be seen in each ovary.? There is a cyst in the left ovary measuring 2.2 x 1.7 x 2.2 cm, compatible with a dominant ovarian follicle.? No adnexal masses are seen. ? Other:? No pathologic free abdominal or pelvic fluid. ? ? IMPRESSION:? ? 1. A 2.2 x 1.7 x 2.2 cm cyst in the left ovary, compatible with a dominant ovarian follicle. 2. Normal uterus and right ovary.? ? ? We strive to produce accurate, complete, and clear reports of imaging services. To assist us in improving patient care, this report was composed using standard report templates and voice recognition software. Therefore, it may contain abnormal punctuation, insertions and/or omissions. Occasional wrong-word or sound-alike substitutions may occur. Though we review the report and make efforts to correct it, we do recommend that the report be read carefully in proper context to recognize any text inaccuracies. ? ? Dictated by: Jonah Trimble M.D. on 08/26/2021 at 19:44 ? ? Approved by: Jonah Trimble M.D. on 08/26/2021 at 19:47 ? MDM Narrative Medical decision making narrative: This is a 36-year-old female who presents to emergency department with three days of worsening left pelvic intermittent generalized lower abdominal pain. She denies any abnormal vaginal discharge, states that she has a history of ovarian cysts and is currently being worked up for endometriosis. On exam today she had mild tenderness over the left ovary, she is nontoxic appearing, lab work is negative for any abnormalities. Pelvis ultrasound shows a 2.2 x 1.7 x 2.2 cm cyst in the left ovary compatible with a dominant ovarian follicle. Normal uterus and right ovary. Patient wishes to follow-up with OBGYN for workup for endometriosis. She states that her doctor wanted to perform laparoscopic surgery to evaluate for this. She states that she has seen Dr. Mendoza in the past and would like to follow-up with her if she is able to. Patient is a female without any history of abdominal surgery. She is not currently on any control, states that she has tried IUDs and have all rejected, she has not tried Nexplanon or Depo Provera and is open to trying another modality to help manage her ovarian cyst pain and symptoms that she states she has every two weeks. She denies any infectious symptoms, no fever, no abnormal discharge. She was prescribed Toradol, Zofran, and given hydrocodone for breakthrough pain. She normally uses ibuprofen and Tylenol for her symptoms, today her pain was worsen what Tylenol and ibuprofen cover. No peritoneal signs on abdominal exam. Patient remains p.o. tolerant. Serial abdominal exam without increase in abdominal pain. Given history and exam, low suspicion for acute abdominal process, such as acute cholecystitis, pancreatitis, perforated viscus, atypical appendicitis, colitis, diverticulitis or torsion. Extensive conversation about ER return precautions and need for close follow-up. Patient is appropriate and amenable to discharge home. Vital signs are stable on repeat examination is unremarkable. Patient has been informed of results. Patient has been given strict return to ER precautions for any new or worsening symptoms. Patient understands to follow up closely with outpatient providers as instructed. Patient understands plan and agrees to discharge home. All questions and concerns answered at this time. <Sheila Zepeda, DO - Last Filed: 08/26/21 23:15> Lab Data Labs: Lab Results 08/26/21 08/26/21 08/26/21 Range/Units 18:20 18:20 18:20 WBC 9.2 (4.5-11.0) X10^3/uL RBC 4.69 (4.0-5.2) X10^6/uL Hgb 14.0 (12.0-16.0) g/dL Hct 40.4 (36-46) % MCV 86.3 (80-100) fL MCH 29.8 (26-34) PG MCHC 34.5 (30-36) % RDW 12.3 (11.6-14.8) % Plt Count 200 (150-400) X10^3/uL Neut % (Auto) 62.3 (50-75) % Lymph % (Auto) 32.3 (25-40) % [place] % (Auto) 4.4 (3-14) % Eos % (Auto) 0.2 L (2-4) % Baso % (Auto) 0.8 (0-2) % Neut # (Auto) 5700 (0184-0293) /uL Lymph # (Auto) 3000 (9486-5141) /uL [place] # (Auto) 400 (0-900) /uL Eos # (Auto) 0 (0-450) /uL Baso # (Auto) 100 (0-100) /uL Sodium 141 (137-145) mmol/L Potassium 3.8 (3.4-5.1) mmol/L Chloride 104 (98-107) mmol/L Carbon Dioxide 28 (22-32) mmol/L BUN 9 (7-17) mg/dL Creatinine 0.66 (0.52-1.04) mg/dL Estimated GFR > 60 (>60) mL/min BUN/Creatinine Ratio 13.6 (6-22) Glucose 98 (70-100) mg/dL Calcium 9.1 (8.4-10.2) mg/dL Total Bilirubin 0.4 (0.2-1.3) mg/dL AST 29 (14-36) IU/L ALT 25 (<35) IU/L Alkaline Phosphatase 39 (38-126) U/L Total Protein 7.6 (6.3-8.2) g/dL Albumin 4.7 (3.5-5.0) g/dL Globulin 2.9 (1.7-4.1) g/dL Albumin/Globulin Ratio 1.6 (1.0-2.8) Lipase 82 (23-300) U/L HCG, Quant < 2.4 mIU/mL Point of care testing: Point of Care Testing Test Results Negative Urine Dip Bedside Urine Glucose Negative Bedside Urine Bilirubin - Negative Bedside Urine Ketone - Negative Urine Specific [place] 1.010 Bedside Urine Occult Blood - Negative Bedside Urine pH 8.0 Bedside Urine Protein - Negative Bedside Urine Urobilinogen - Negative Bedside Urine Nitrite - Negative Bedside Urine Leukocytes - Negative Esterase Discharge Plan Departure Patient Disposition: Home Clinical Impression: Ovarian cyst Qualifiers: Laterality: left Qualified Code(s): N83.202 - Unspecified ovarian cyst, left side Instructions: DI for Ovarian Cyst Activity Restrictions/Additional Instructions: *You have been diagnosed with a left-sided ovarian cyst which is likely causing her pain and symptoms. Your lab work is reassuring that there is not any significant infection, abdominal organ problem, kidney problem, liver problem, gallbladder problems or other abdominal problem. I am sorry for your pain, hopefully this improves over the next 1-2 days. Continue to use ibuprofen and Tylenol as needed for your pain. Stay hydrated, use a stool softener if you are having hard stools, this may also cause increased pain. Please call and schedule an appointment for follow-up with Dr. Mendoza from OBGYN. She will be able to see your ultrasound from today. Please use the hydrocodone as needed for breakthrough pain, have called in Toradol which is a strong anti-inflammatory, take this instead of ibuprofen every 8 hours with food and water for pain. You may take Tylenol with this, please do not take over for g of Tylenol 24 hours. Hydrocodone has 325 mg of Tylenol in it. CONTROLLED SUBSTANCE DISCHARGE (Narcotic/benzodiazepine/Flexeril/Phenergan) 1. You have been prescribed narcotic medications, it does have acetaminophen/Tylenol/paracetamol in it, DO NOT TAKE MORE THAN 4,00mg in 24 hours of Tylenol. *Tramadol does not contain tylenol. 2. Please understand that we cannot provide further refills of narcotics, benzodiazepines or controlled substances through the ED and her pain management will need to be through your provider. 3. While on these medications you cannot drive or operate heavy machinery. 4. You cannot sign legal documents or perform any duties such as this. 5. As long as you are taking opiate pain medications he should also be taking a stool softener such as Colace, Dulcolax, MiraLAX or prune juice, to help avoid constipation. *What to do: *Please continue to take your regular medications as directed. [x ] New medication prescriptions sent to your pharmacy: [[facility] ] [ ] New medication written as a paper prescription [ ] No new medications given *Please follow up with your primary care provider in 2-3 days, call for an appointment. Let them know you were seen in the Emergency Department and that we asked that you be seen for follow-up. We will electronically transmit a record of today's note if your PCP is in our system *If you do not have a primary care provider please contact [phone] to establish care with one of [facility] primary care providers. *Return to Emergency Department if you should have any new, worsening or concerning symptoms, such as [fever greater than 101F, chills, worsening pain, persistent vomiting or other bothersome symptoms] Prescriptions: New ondansetron HCl 4 mg tablet 4 mg PO DAILY PRN (Reason: nausea and vomiting) Qty: 10 0RF ketorolac 10 mg tablet 10 mg PO Q8H PRN (Reason: pain) Qty: 20 0RF Rx Instructions: Please use this instead of ibuprofen and take with food and water every 8 hours as needed for pain. hydrocodone-acetaminophen 5-325 mg tablet 1 tab PO TID PRN (Reason: pain) Qty: 10 0RF No Action omega-3 fatty acids [Fish Oil Concentrate] 1,000 mg capsule 1,000 mg PO DAILY cholecalciferol (vitamin D3) 1,000 unit capsule 1,000 unit PO DAILY PNV cmb#95-ferrous fumarate-FA [] 28 mg iron- 800 mcg Tablet 1 tab PO DAILY Referrals: Eva Mendoza MD [Physician] - Marissa Flaherty MD [Primary Care Provider] - Visit Report Forms: Patient Portal/API <Sheila Zepeda DO - Last Filed: 08/26/21 23:15> Cosign ED Attending Ericksonature Attestation: I was immediately available in the department for consultation. Documentation has been reviewed. I agree with assessment and plan.
[2021-08-26] MEDS: KETOROLAC 30 MG/ML VIAL 15 MG IV (18:28)
[2021-08-26] MEDS: HYDROCODONE/ACET 5/325 TABLET 1 TAB PO (18:28)
[2021-08-26] MEDS: ONDANSETRON 4 MG/2 ML INJ IV (18:28)
[2021-08-26 18:44] LABS: Alanine Aminotransferase 25 IU/L (<35); Albumin 4.7 g/dL (3.5-5.0); Albumin Globulin Ratio 1.6 (1.0-2.8); Alkaline Phosphatase 39 U/L (38-126); Aspartate Aminotransferase 29 IU/L (14-36); BUN Creatinine Ratio 13.6 (6-22); Bilirubin Total 0.4 mg/dL (0.2-1.3); Blood Urea Nitrogen 9 mg/dL (7-17); Calcium 9.1 mg/dL (8.4-10.2); Carbon Dioxide 28 mmol/L (22-32); Chloride 104 mmol/L (98-107); Estimated Glomerular Filt Rate > 60 mL/min (>60); Globulin 2.9 g/dL (1.7-4.1); Glucose 98 mg/dL (70-100); HEMOLYSIS 22 (0-50); Lipase 82 U/L (23-300); Potassium 3.8 mmol/L (3.4-5.1); Sodium 141 mmol/L (137-145); Total Protein 7.6 g/dL (6.3-8.2)
[2021-08-26 19:01] LABS: HCG Quantitative /Beta subunit < 2.4 mIU/mL
[2021-08-26 19:06] LABS: Add Manual Diff / Slide Review NO; Basophils Absolute Auto 100 /uL (0-100); Basophils Percent Auto 0.8 % (0-2); Eosinophils Absolute Auto 0 /uL (0-450); Eosinophils Percent Auto 0.2 % (2-4); Hematocrit 40.4 % (36-46); Lymphocytes Absolute Auto 3000 /uL (1100-4500); Lymphocytes Percent Auto 32.3 % (25-40); Mean Corpuscular HGB Conc 34.5 % (30-36); Mean Corpuscular Hemoglobin 29.8 PG (26-34); Mean Corpuscular Volume 86.3 fL (80-100); Monocytes Absolute Auto 400 /uL (0-900); Monocytes Percent Auto 4.4 % (3-14); Neutrophils Absolute Auto 5700 /uL (1500-7000); Neutrophils Percent Auto 62.3 % (50-75); Platelet Count 200 X10^3/uL (150-400); Red Blood Cell Count 4.69 X10^6/uL (4.0-5.2); Red Cell Distribution Width 12.3 % (11.6-14.8); White Blood Cell Count 9.2 X10^3/uL (4.5-11.0)
[2021-08-26 19:52] VITALS: BP 114/82; PULSE 62; RESP 16; O2SAT 100
== END 2021-08-26 19:53 | disposition home or self-care (01) ==
PROVIDERS: Emergency Provider Nurse Practitioner Critical Care Medicine; PCP Family Medicine
DX: N83.202 Unspecified ovarian cyst, left side (principal); R10.11 Right upper quadrant pain
CPT/HCPCS: 36415; 76830; 76856; 80053; 81003; 81025; 83690; 84702; 85025; 96374; 96375; 99284; J1885; J2405

== ENCOUNTER → 2021-09-21 16:34 | Outpatient (CLI) | payer OTHER, MEDICAID, SELFPAY ==
[2021-09-21 17:11] LABS: COVID19 -Nasal RAPID Negative (Negative)
== END ==
PROVIDERS: PCP Family Medicine; Visit Provider Obstetrics & Gynecology
DX: Z01.812 Encounter for preprocedural laboratory examination (principal); Z20.822 Contact with and (suspected) exposure to COVID-19
CPT/HCPCS: 87635; C9803

== ENCOUNTER 2021-09-24 12:36 | Day surgery (SDC) | payer OTHER, MEDICAID, SELFPAY ==
[2021-09-21 08:19] VITALS: BMI 24.0
[2021-09-24] VITALS (11 sets, daily range): BP systolic 92–120; BP diastolic 49–77; PULSE 65–95; RESP 10–17; TEMP 36.2–36.6; O2SAT 95–100; BMI 24.0
--- NOTE | 2021-09-24 | PATH_ITS ---
[facility] Accession Number: [id number] No. of containers..02 Tissue . 01 Material submitted: . PART A: endometrium - ENDOMETRIAL BIOPSY PART B: fallopian tube - LEFT TUBE LESION BIOPSY . 01 Clinical history: . B: POSSIBLE ENDOMETRIOSIS . 01 Diagnosis: A. Endometrial Biopsy: Portions of proliferative endometrium; negative for glandular hyperplasia, cytologic atypia, or malignancy. . B. Left Tube Lesion, Biopsy: Benign fibroconnective and fibroadipose tissue. No endometriosis identified. Additional levels through the block are noncontributory. V 09/27/2021 1237 Local . 01 Electronically signed: . Caroline Ahuja MD, Pathologist NPI- [id number] . 01 Gross description: . Part A: ENDOMETRIAL BIOPSY: Received in formalin are minute fragments of mucoid and hemorrhagic material measuring 0.6 x 0.6 x 0.4 cm in aggregate. Submitted in toto in 1 cassette. Part B: LEFT TUBE LESION BIOPSY: Received in formalin is 1 fragment of sandoval soft tissue measuring 0.4 x 0.2 x 0.2 cm. Specimen is submitted in its entirety in 1 cassette. /KIN 09/25/2021 0142 Local . 01 Pathologist provided ICD-10: R10.2, N94.6 . 01 CPT . 686199, [id number] Specimen Comment: A courtesy copy of this report has been sent to [facility] Pathology Performed at: 01 [facility] [address] [place] [address], [place], [place] [id number] MD Gerard Smith MD Phone: [phone]
[2021-09-24] MEDS: LACTATED RINGERS 1,000 ML 100 ML IV ×2 (13:36→15:37)
--- NOTE | 2021-09-24 13:41 | PM.PREOP ---
Pre-operative Note COVID-19 COVID-19 status: Negative Result date/Date tested (Pos, Neg/Pending): 09/21/21 Criteria for continued procedure: Continuing or worsening of significant or severe pain Interval Note History & Physical reviewed/Exam performed by Physician: Yes Changes to H&P: No
[2021-09-24 13:53] LABS: Add Manual Diff / Slide Review NO; Basophils Absolute Auto 0 /uL (0-100); Basophils Percent Auto 0.7 % (0-2); Eosinophils Absolute Auto 0 /uL (0-450); Eosinophils Percent Auto 0.5 % (2-4); Hematocrit 38.1 % (36-46); Hemoglobin 13.1 g/dL (12.0-16.0); Lymphocytes Absolute Auto 2500 /uL (1100-4500); Lymphocytes Percent Auto 42.1 % (25-40); Mean Corpuscular HGB Conc 34.3 % (30-36); Mean Corpuscular Hemoglobin 29.7 PG (26-34); Mean Corpuscular Volume 86.6 fL (80-100); Monocytes Absolute Auto 400 /uL (0-900); Monocytes Percent Auto 5.9 % (3-14); Neutrophils Absolute Auto 3100 /uL (1500-7000); Neutrophils Percent Auto 50.8 % (50-75); Platelet Count 180 X10^3/uL (150-400); Red Cell Distribution Width 12.3 % (11.6-14.8)
--- NOTE | 2021-09-24 14:58 | SUR.OPER ---
Lithotomy on padded OR bed, head on pillow, arms secured on padded arm boards at <90 degrees abduction. Legs secured in padded yellow fins stirrups. directed and approved by surgeon
[2021-09-24] MEDS: BUPIVACAINE 0.5% (PF) 30 ML, EPINEPHrine 0.15 MG INJ (15:03)
[2021-09-24] MEDS: fentaNYL 100 MCG/2 ML INJ IV ×2 (16:18→16:30)
[2021-09-24] MEDS: OXYCODONE/ACETAMINOPHEN 5/325 TABLET 1 TAB PO (16:37)
--- NOTE | 2021-09-24 17:17 | SUR.PHASEII ---
Medicated for c/o nausea. Surgeon speaking to her.
--- NOTE | 2021-09-24 17:35 | SUR.PHASEII ---
[id number] Surgeon spoke with patient again, showed her the pictures. Nausea resolved
--- NOTE | 2021-09-24 23:33 | P.OP_ITS ---
Operative Date/Time/Diagnoses Date of procedure: 09/24/21 Time of procedure: 15:30 Pre-op diagnosis: 1.chronic cyclic pelvic pain, severe dysmenorrhea 2. episode of inter-menstrual light bleeding Post-op diagnosis: other (1.Cyclical pelvic pain, severe dysmenorrhea. On laparoscopy suspect eondometriosis on colon, focal tubal endometriosis. Thin adhesions colon to left round ligament, left pelvic sidewall 2. Episode of intermenstrual bleeding.) Procedure & Clinicians Procedure: 1. diagnostic laparoscopy, focal ablation of left tubal probable endometriosis, lysis of adhesions 2. Endometrial biopsy Same procedure as scheduled: Yes Indications: 36 yo with over 20 years of severe dysmenorrhea with pain starting several days to a week prior to menses, as well as sometimes severe pain near ovulation. Dysmenorrhea was controlled with OCPs for a while, but she had severe mood changes and reports she was changed to Ortho Evra patch and NuvaRing, both without relief of the dysmenorrhea. On reviewing options, she desired proceeding with diagnostic laparoscopy, possible treatment of endometriosis instead of trial of progesterone or Lupron. She also had a recent episode of intermenstrual spotting. Endometrium was 7.5 mm on ultrasound, no signs of polyp. Consented to endometrial sampling with endometrial biopsy. Surgeon: Shelby Flowers Click Yes if Unassisted: Yes Anesthesia Type: General Operative Notes Findings: On endometrial biopsy uterus sounded to 7.5 cm. On laparoscopy on the left fallopian tube serosal surface there were 2 clear raised lesions that appeared consistent with probable endometriosis. One area was on the mid left fallopian tube and was grasped and removed and sent for pathology. The 2nd area was on the proximal left tube about 1 cm from the cornua and was fulgurated. There were several white patches on the sigmoid colon that were suspicious for endometriosis. General surgeon wood barrel reconditioner called but not available to come visualize or biopsy. The remainder of the pelvis had no visible endometriotic lesions. There were some filmy adhesions from the colon to the lateral left round ligament and left pelvic sidewall and were lysed to free up the colon. The uterus was normal in size, appearance and contour,without any visible endometriosis lesions. The ovaries bilaterally, including inferior surface, were normal in appearance. The left fallopian tube had the 2 focal lesions that appear consistent with clear endometriosis otherwise it was normal in diameter in appearance down to the fimbriated end. The right fallopian tube was normal in appearance down to the fimbriated end. The anterior cul-de-sac was normal, without any endometriosis. the posterior cul-de-sac had no visible endometriosis, but there was small circular peritoneal defect on the left between the uterosacral ligaments. The ovarian fossa and pelvic sidewalls were normal, without signs of endometriosis. Closure Type: primary Specimen(s): other (1. endometrial biopsy 2. Left tubal lesion biopsy, probable endometriosis) Estimated Blood Loss (mL): 5 Blood products transfused: none Procedure in detail: After being properly identified she was transferred to the operating room. After an adequate level of general anesthesia was obtained she was placed in Jeramy stirrups in the dorsal lithotomy position. Bimanual examination was performed. She was prepped and draped in routine sterile fashion. Her bladder was sterilely drained with a rubber catheter with the prep. An open-sided speculum was placed and the cervix was grasped with a single-tooth tenaculum. The endometrial Pipelle was obtained and passed into the uterus without difficulty, with the cervical os being mildly open already. The uterus sounded to 7.5cm. Global endometrial sampling was performed with 3 passes and sent for pathology. The Humi intrauterine manipulator was set to 7.5 cm and passed through the cervix without difficulty. The balloon was insufflated. The tenaculum was removed from the cervix. There was good hemostasis at the tenaculum sites. Attention was then placed to the abdomen where after injection of approximately 1.5 mL 0.5% Marcaine with epinephrine, a small vertical infraumbilical incision was made. The abdomen was elevated and the veres needle was placed. Drop test was performed and Veress needle appeared intraperitoneal. The CO2 gas was connected and opening pressure was 1 mm Hg. The abdomen was insufflated with CO2 gas. The Veress needle was removed and a 5 mm Opti port trocar was placed under direct visualization without difficulty. Intraperitoneal placement was confirmed. The CO2 gas was then connected to the trocar. Upon inspection inferior to the trocar site was atraumatic. There were no visible abdominal or pelvic adhesions at this time. Inspection of the upper abdomen revealed a normal appearing liver and gallbladder. The left upper quadrant appeared normal. A secondary 5 mm trocar was placed in the right lower abdomen, just slightly lower than her umbilical trocar. This was placed after local injection of Marcaine, then incision was made and 5 mm trocar placed under direct visualization. A blunt probe was placed. The uterus was elevated using the Meg and the pelvis was inspected with the above findings. The general surgeon on-call, Dr. Gonzales was called to see if she was available to look at the white lesions on the sigmoid colon, which appeared suspicious for possible endometriosis. She was not available and images were taken to review with her. A 3rd trocar was placed at this time to lyse the left pelvic sidewall adhesions. Approximately 1 ml of the 0.5% Marcaine was placed in the midline suprapubically, a small incision was made and an additional 5 mm trocar was placed under direct visualization. Attention was placed to the left fallopian tube where the clear lesion on the surface of the mid tube was grasped with an atraumatic grasper, it was fairly loose and was pulled off and handed off as specimen. There was a small defect in the serosal surface in this area from removal with a little blood, but no active bleeding. The monopolar J-hook was then placed and the other clear lesion on the proximal left tube was coagulated. NSS irrigation was placed over the tube and repeat inspection revealed good hemostasis. Attention was then placed to the adhesions. With the blunt probe this was inspected and a clear filmy areas of adhesion was noted going from the colon to the very left lateral round ligament and the adjacent lateral left pelvic sidewall. The adhesion was grasped with an atraumatic grasper and using the Power seal device the adhesions were lysed. Good hemostasis was noted. The posterior cul de sac was suctioned of a small amount of fluid. The abdomen was partly desufflated and repeat inspection near the lysed adhesions and the left fallopian tube revealed continued hemostasis and hemostasis throughout the pelvis. The abdomen was then further desufflated. The lower abdominal trocars were removed under direct visualization. After pushing out additional gas, the umbilical trocar was removed. The skin incisions were closed with subcuticular suture of 4-0 Monocryl. Steri-Strips were placed to the 2 lower abdominal incisions and Tegaderm dressing was placed over the incisions. The intrauterine manipulator was removed after desufflating the balloon. The procedure was ended. She tolerated the procedure well and went to recovery room stable condition. Complications: none Post-operative Condition: stable Disposition: PACU Plan for aftercare: Discharge to home from PACU, follow-up in 1-2 weeks.
== END 2021-09-24 17:33 | disposition home or self-care (01) ==
PROVIDERS: PCP Family Medicine; Referring Provider Obstetrics & Gynecology; Visit Provider Obstetrics & Gynecology
PROC: 0U5B4ZZ Destruction of Endometrium, Percutaneous Endoscopic Approach (ICD-10-PCS; CPT 58662; principal; 2021-09-24 13:30)
DX: R10.2 Pelvic and perineal pain (principal); N94.6 Dysmenorrhea, unspecified; N73.6 Female pelvic peritoneal adhesions (postinfective)
CPT/HCPCS: 58662; 36415; 81025; 85025; 86850; 86900; 86901; J0171; J1885; J2250; J3010

== ENCOUNTER 2021-12-06 18:42 | Emergency (ER) | payer OTHER, MEDICAID, SELFPAY ==
[2021-12-06] VITALS (9 sets, daily range): BP systolic 111–121; BP diastolic 68–80; PULSE 63–89; RESP 15–20; TEMP 36.7; O2SAT 99–100
[2021-12-06 20:06] LABS: Add Manual Diff / Slide Review NO; Basophils Absolute Auto 0 /uL (0-100); Basophils Percent Auto 0.6 % (0-2); Eosinophils Absolute Auto 0 /uL (0-450); Eosinophils Percent Auto 0.2 % (2-4); Hematocrit 37.9 % (36-46); Hemoglobin 13.2 g/dL (12.0-16.0); Lymphocytes Absolute Auto 1500 /uL (1100-4500); Lymphocytes Percent Auto 19.7 % (25-40); Mean Corpuscular HGB Conc 34.9 % (30-36); Mean Corpuscular Volume 85.8 fL (80-100); Monocytes Absolute Auto 400 /uL (0-900); Monocytes Percent Auto 4.9 % (3-14); Neutrophils Absolute Auto 5900 /uL (1500-7000); Neutrophils Percent Auto 74.6 % (50-75); Platelet Count 208 X10^3/uL (150-400); Red Blood Cell Count 4.41 X10^6/uL (4.0-5.2); Red Cell Distribution Width 12.2 % (11.6-14.8); White Blood Cell Count 7.8 X10^3/uL (4.5-11.0)
[2021-12-06] MEDS: SODIUM CHLORIDE 0.9% 1,000 ML 1000 ML IV (20:09)
[2021-12-06 20:10] LABS: Alanine Aminotransferase 16 IU/L (<35); Albumin 4.7 g/dL (3.5-5.0); Albumin Globulin Ratio 1.5 (1.0-2.8); Alkaline Phosphatase 50 U/L (38-126); Aspartate Aminotransferase 28 IU/L (14-36); BUN Creatinine Ratio 11.5 (6-22); Bilirubin Total 0.5 mg/dL (0.2-1.3); Blood Urea Nitrogen 7 mg/dL (7-17); Carbon Dioxide 28 mmol/L (22-32); Chloride 103 mmol/L (98-107); Creatine Kinase 79 U/L (30-135); Estimated Glomerular Filt Rate > 60 mL/min (>60); Globulin 3.1 g/dL (1.7-4.1); Glucose 88 mg/dL (70-100); HEMOLYSIS 18 (0-50); Potassium 3.6 mmol/L (3.4-5.1); Sodium 141 mmol/L (137-145); Total Protein 7.8 g/dL (6.3-8.2)
[2021-12-06 20:15] LABS: D Dimer < 215 ng/ml (<500)
[2021-12-06 20:22] LABS: Troponin I < 0.012 ng/mL (0.01-0.034)
[2021-12-06 20:50] LABS: TSH w/ Reflex to FT4 1.97 uIU/mL (0.47-4.68)
[2021-12-06 21:01] LABS: Bacteria Urine None Seen; Culture Indicated Urine Cult Not Indicated; RBC Urine 30-100/HPF (0-5/HPF); Squamous Epithelial Cell Urine 1-5 /HPF (0-5/HPF); WBC Urine 1-5/HPF (0-5/HPF)
--- NOTE | 2021-12-06 22:07 | ED.ARRPALP ---
HPI - Arrhythmia/Palpitations General Chief Complaint: Dizziness Stated Complaint: Heart palpitations, Dizziness Time Seen by Provider: 12/06/21 19:53 Source: patient Mode of arrival: Ambulatory History of Present Illness HPI narrative: 36-year-old female nonsmoker with history of ovarian cysts presents with an episode of rapid heart rate, palpitations that was associated with shortness of breath and lightheadedness earlier today. Patient is asymptomatic on her arrival here. She denies any change in medications or diet. She denies any chest pain, nausea, vomiting or diarrhea. She denies any recent long distance travel, history of blood clot or lower extremity pain, redness or swelling. She denies any dysuria, frequency or urgency. She is currently on her menses but states that is normal for her and not particularly heavy or long induration. She denies any significant alcohol, nicotine or caffeine. She denies use of any street drugs. Related Data Home Medications Medication Instructions Recorded Confirmed vit no.95-ferrous 1 tab PO DAILY 01/15/18 11/20/21 fumarate 28 mg-folic acid 800 mcg tablet () cholecalciferol (vitamin D3) 25 1,000 unit PO DAILY 02/16/18 11/20/21 mcg (1,000 unit) capsule omega-3 fatty acids 1,000 mg 1,000 mg PO DAILY 02/16/18 11/20/21 capsule (Fish Oil Concentrate) vitamin B complex (B 1 tab PO DAILY 09/22/21 11/20/21 Complex-Vitamin B12 tablet) Previous Rx's Medication Instructions Recorded ondansetron HCl 4 mg tablet 4 mg PO DAILY PRN nausea and 08/26/21 vomiting #10 tabs ibuprofen 600 mg tablet 600 mg PO Q6H PRN pain #30 tabs 09/24/21 norethindrone (contraceptive) 0.35 0.35 mg PO DAILY #28 tabs 10/02/21 mg tablet (Ortho Micronor) Allergies Allergy/AdvReac Type Severity Reaction Status Date / Time Penicillins Allergy Intermediate Rash Verified 11/20/21 11:21 Sulfa (Sulfonamide Allergy Intermediate Rash Verified 11/20/21 11:21 Antibiotics) Review of Systems Review of Systems Narrative: GENERAL: See HPI HEENT: Denies sinus pain, ear pain, sore throat, difficulty swallowing, dizziness. RESPIRATORY: Denies dyspnea, cough, wheezing, hemoptysis, sputum. CARDIOVASCULAR: See HPI GASTROINTESTINAL: Denies nausea, vomiting, abdominal pain, diarrhea, constipation, melena. : Denies dysuria, frequency, incontinence, hematuria, urinary retention. MUSCULOSKELETAL: denies weakness, joint pain, or bony pain SKIN: Denies rash, skin lesions, or other NEUROLOGIC: See HPI PSYCHIATRIC: No concerning psychosocial issues. 12 point review of systems is negative except for those stated above Patient History Medical History History of blood transfusion IBS (irritable bowel syndrome) Ovarian cyst Family History Sister PCOS (polycystic ovarian syndrome) Family/Other Endometriosis Social History household members: spouse Smoking Status: Never smoker alcohol intake: current Smoking Status: Never smoker alcohol intake frequency: holidays/special occasions only Substance Use Type: does not use Exam Narrative Exam Narrative: GENERAL: [36] year old patient appears stated age. Well-developed patient, in mild distress. HEAD: Atraumatic. Normocephalic. EYES: Pupils equal round and reactive. Extraocular motions intact. No scleral icterus. No injection or drainage. ENT: Nose without bleeding, purulent drainage. Throat without erythema, tonsillar hypertrophy or exudate. Airway patent. NECK: Trachea midline. Non tender CARDIOVASCULAR: Regular rate and rhythm without murmurs, gallops, or rubs. RESPIRATORY: Clear to auscultation. Breath sounds equal bilaterally. No wheezes, rales, or rhonchi. GASTROINTESTINAL: Abdomen soft, non-tender, nondistended. EXTREMITIES: No edema or joint tenderness. BACK: Nontender without deformity or crepitance. No flank tenderness. NEURO: AOx3. SKIN: No rash or erythema of visible areas Initial Vital Signs Initial Vital Signs: Vital Signs Temperature 98.0 F 12/06/21 19:20 Pulse Rate 89 12/06/21 19:20 Respiratory Rate 18 12/06/21 19:20 Blood Pressure 121/80 12/06/21 19:20 Pulse Oximetry 99 12/06/21 19:20 Oxygen Delivery Method 12/06/21 19:20 Course Orders Ordered: ED Orders 12/06/21 19:28 CBC Auto Diff [Complete Blood Count AUTO DIFF] Stat CMP [Comprehensive Metabolic Panel] Stat D Dimer Stat TSH w/ Reflex to FT4 Stat Troponin & CK Cardiac Panel Stat 12/06/21 20:35 Urine Microscopic Stat Discontinued Medications Sodium Chloride (Normal Saline 0.9%) 1,000 mls @ 1,000 mls/hr IV BOLUS ONE Stop: 12/06/21 20:56 Last Infusion: 12/06/21 21:09 Dose: 0 mls/hr Documented By: Admin: 12/06/21 20:09 Dose: 1,000 mls/hr Documented By: ROSSI Vital Signs Vital signs: Vital Signs - 8 hr 12/06/21 19:20 12/06/21 19:30 12/06/21 20:00 Temperature 98.0 F Pulse Rate 89 83 70 Respiratory Rate 18 18 15 Blood Pressure 121/80 120/71 117/77 Pulse Oximetry 99 100 99 Oxygen Delivery Method Room Air Room Air Room Air 12/06/21 20:14 12/06/21 20:30 12/06/21 21:00 Temperature Pulse Rate 75 70 64 Respiratory Rate 16 20 Blood Pressure Pulse Oximetry 99 100 100 Oxygen Delivery Method Room Air Room Air Room Air 12/06/21 21:22 12/06/21 21:22 12/06/21 21:30 Temperature Pulse Rate 65 Respiratory Rate 15 Blood Pressure 111/70 117/72 Pulse Oximetry 99 Oxygen Delivery Method Room Air 12/06/21 21:30 12/06/21 22:00 12/06/21 22:00 Temperature Pulse Rate 64 63 Respiratory Rate 15 19 Blood Pressure 112/68 Pulse Oximetry 99 100 Oxygen Delivery Method Room Air Room Air MDM - Arrhythmia/Palpitations Lab Data Result diagrams: 12/06/21 19:28 12/06/21 19:28 Labs: Lab Results 12/06/21 12/06/21 12/06/21 Range/Units 19:28 19:28 19:28 WBC 7.8 (4.5-11.0) X10^3/uL RBC 4.41 (4.0-5.2) X10^6/uL Hgb 13.2 (12.0-16.0) g/dL Hct 37.9 (36-46) % MCV 85.8 (80-100) fL MCH 30.0 (26-34) PG MCHC 34.9 (30-36) % RDW 12.2 (11.6-14.8) % Plt Count 208 (150-400) X10^3/uL Neut % (Auto) 74.6 (50-75) % Lymph % (Auto) 19.7 L (25-40) % [place] % (Auto) 4.9 (3-14) % Eos % (Auto) 0.2 L (2-4) % Baso % (Auto) 0.6 (0-2) % Neut # (Auto) 5900 (5986-8695) /uL Lymph # (Auto) 1500 (5238-1876) /uL [place] # (Auto) 400 (0-900) /uL Eos # (Auto) 0 (0-450) /uL Baso # (Auto) 0 (0-100) /uL D-Dimer < 215 (<500) ng/ml Sodium 141 (137-145) mmol/L Potassium 3.6 (3.4-5.1) mmol/L Chloride 103 (98-107) mmol/L Carbon Dioxide 28 (22-32) mmol/L BUN 7 (7-17) mg/dL Creatinine 0.61 (0.52-1.04) mg/dL Estimated GFR > 60 (>60) mL/min BUN/Creatinine Ratio 11.5 (6-22) Glucose 88 (70-100) mg/dL Calcium 9.0 (8.4-10.2) mg/dL Total Bilirubin 0.5 (0.2-1.3) mg/dL AST 28 (14-36) IU/L ALT 16 (<35) IU/L Alkaline Phosphatase 50 (38-126) U/L Total Creatine Kinase 79 (30-135) U/L CK-MB (CK-2) TNP CK-MB (CK-2) Rel Index TNP Troponin I < 0.012 (0.01-0.034) ng/mL Total Protein 7.8 (6.3-8.2) g/dL Albumin 4.7 (3.5-5.0) g/dL Globulin 3.1 (1.7-4.1) g/dL Albumin/Globulin Ratio 1.5 (1.0-2.8) TSH (0.47-4.68) uIU/mL Urine RBC (0-5/HPF) Urine WBC (0-5/HPF) Ur Squamous Epith Cells (0-5/HPF) Urine Bacteria (None) Ur Culture Indicated? 12/06/21 12/06/21 Range/Units 19:28 20:35 WBC (4.5-11.0) X10^3/uL RBC (4.0-5.2) X10^6/uL Hgb (12.0-16.0) g/dL Hct (36-46) % MCV (80-100) fL MCH (26-34) PG MCHC (30-36) % RDW (11.6-14.8) % Plt Count (150-400) X10^3/uL Neut % (Auto) (50-75) % Lymph % (Auto) (25-40) % [place] % (Auto) (3-14) % Eos % (Auto) (2-4) % Baso % (Auto) (0-2) % Neut # (Auto) (7938-9541) /uL Lymph # (Auto) (6564-8735) /uL [place] # (Auto) (0-900) /uL Eos # (Auto) (0-450) /uL Baso # (Auto) (0-100) /uL D-Dimer (<500) ng/ml Sodium (137-145) mmol/L Potassium (3.4-5.1) mmol/L Chloride (98-107) mmol/L Carbon Dioxide (22-32) mmol/L BUN (7-17) mg/dL Creatinine (0.52-1.04) mg/dL Estimated GFR (>60) mL/min BUN/Creatinine Ratio (6-22) Glucose (70-100) mg/dL Calcium (8.4-10.2) mg/dL Total Bilirubin (0.2-1.3) mg/dL AST (14-36) IU/L ALT (<35) IU/L Alkaline Phosphatase (38-126) U/L Total Creatine Kinase (30-135) U/L CK-MB (CK-2) CK-MB (CK-2) Rel Index Troponin I (0.01-0.034) ng/mL Total Protein (6.3-8.2) g/dL Albumin (3.5-5.0) g/dL Globulin (1.7-4.1) g/dL Albumin/Globulin Ratio (1.0-2.8) TSH 1.97 (0.47-4.68) uIU/mL Urine RBC 30-100/hpf H (0-5/HPF) Urine WBC 1-5/hpf (0-5/HPF) Ur Squamous Epith Cells 1-5 /hpf (0-5/HPF) Urine Bacteria None seen (None) Ur Culture Indicated? Cult not indicated Point of Care Testing Test Results Negative Urine Dip Bedside Urine Glucose Negative Bedside Urine Bilirubin - Negative Bedside Urine Ketone - Negative Urine Specific [place] 1.005 Bedside Urine Occult Blood + Bedside Urine pH 7.0 Bedside Urine Protein + 30 Bedside Urine Urobilinogen - Negative Bedside Urine Leukocytes - Negative Esterase Discharge Plan Departure Patient Disposition: Home Clinical Impression: Heart palpitations Instructions: DI for Palpitations Activity Restrictions/Additional Instructions: *You have been diagnosed with [palpitations with spontaneous resolution. As we discussed your history and physical exam are reassuring and labs and EKG showed no significant abnormal findings.] *What to do: *Please continue to take your regular medications as directed. *Please follow up with your primary care provider in 2-3 days, call for an appointment. Let them know you were seen in the Emergency Department and that we ask that you be seen in follow up. We will electronically transmit a record of today's note if your PCP is in our system. It seems likely that they will help you get set up with a heart monitor that you could wear at home for anywhere between a few days and a few weeks to help try and catch 1 of these episodes *If you do not have a primary care provider please contact the [facility] Resource line at [phone]. They will ask some questions about your medical history and help get you set up with a doctor in the community. * as we discussed please continue to stay well hydrated, get plenty of sleep and avoid significant caffeine, nicotine, alcohol and other stimulants. *Return to Emergency Department if you should have any new, worsening or concerning symptoms Prescriptions: No Action omega-3 fatty acids [Fish Oil Concentrate] 1,000 mg capsule 1,000 mg PO DAILY cholecalciferol (vitamin D3) 1,000 unit capsule 1,000 unit PO DAILY vitamin B complex [B Complex-Vitamin B12] Tablet 1 tab PO DAILY norethindrone (contraceptive) [Ortho Micronor] 0.35 mg tablet 0.35 mg PO DAILY Qty: 28 11RF PNV cmb#95-ferrous fumarate-FA [] 28 mg iron- 800 mcg Tablet 1 tab PO DAILY ibuprofen 600 mg tablet 600 mg PO Q6H PRN (Reason: pain) Qty: 30 0RF ondansetron HCl 4 mg tablet 4 mg PO DAILY PRN (Reason: nausea and vomiting) Qty: 10 0RF Referrals: Maria E Mace MD [Primary Care Provider] - Visit Report Forms: Patient Portal/API
== END 2021-12-06 22:22 | disposition home or self-care (01) ==
PROVIDERS: Emergency Provider Emergency Medicine; PCP Family Medicine
DX: R00.2 Palpitations (principal); R42 Dizziness and giddiness
CPT/HCPCS: 36415; 80053; 81003; 81015; 81025; 82550; 84443; 84484; 85025; 85379; 93005; 99284

== ENCOUNTER → 2022-01-18 10:23 | Outpatient (CLI) | payer OTHER, MEDICAID, SELFPAY ==
[2022-01-18 11:59] LABS: Add Manual Diff / Slide Review NO; Basophils Absolute Auto 0 /uL (0-100); Basophils Percent Auto 0.6 % (0-2); Eosinophils Absolute Auto 0 /uL (0-450); Eosinophils Percent Auto 0.5 % (2-4); Hematocrit 40.8 % (36-46); Hemoglobin 13.8 g/dL (12.0-16.0); Lymphocytes Absolute Auto 2600 /uL (1100-4500); Lymphocytes Percent Auto 33.7 % (25-40); Mean Corpuscular HGB Conc 33.7 % (30-36); Mean Corpuscular Hemoglobin 28.9 PG (26-34); Mean Corpuscular Volume 85.7 fL (80-100); Monocytes Absolute Auto 400 /uL (0-900); Monocytes Percent Auto 4.7 % (3-14); Neutrophils Absolute Auto 4700 /uL (1500-7000); Neutrophils Percent Auto 60.5 % (50-75); Platelet Count 221 X10^3/uL (150-400); Red Blood Cell Count 4.76 X10^6/uL (4.0-5.2); Red Cell Distribution Width 12.6 % (11.6-14.8); White Blood Cell Count 7.7 X10^3/uL (4.5-11.0)
[2022-01-18 13:36] LABS: Alanine Aminotransferase 29 IU/L (<35); Albumin 4.5 g/dL (3.5-5.0); Albumin Globulin Ratio 1.4 (1.0-2.8); Alkaline Phosphatase 54 U/L (38-126); Aspartate Aminotransferase 26 IU/L (14-36); BUN Creatinine Ratio 14.5 (6-22); Bilirubin Total 0.6 mg/dL (0.2-1.3); Blood Urea Nitrogen 9 mg/dL (7-17); C-Reactive Protein Quant < 0.5 mg/dL (<1.0); Calcium 8.7 mg/dL (8.4-10.2); Carbon Dioxide 28 mmol/L (22-32); Chloride 101 mmol/L (98-107); Estimated Glomerular Filt Rate > 60 mL/min (>60); Globulin 3.2 g/dL (1.7-4.1); Glucose 81 mg/dL (70-100); HEMOLYSIS < 15 (0-50); Potassium 3.7 mmol/L (3.4-5.1); Sodium 139 mmol/L (137-145); Total Protein 7.7 g/dL (6.3-8.2)
[2022-01-18 13:39] LABS: Rheumatoid Factor < 8.6 IU/mL (<12.0)
[2022-01-18 14:03] LABS: Erythrocyte Sedimentation Rate 4 MM/HR (0-20)
[2022-01-19 08:18] LABS: Complement C3 104 mg/dL (82-167)
[2022-01-19 20:56] LABS: Deamidated Gliadin Ab IgA 6 units (0-19); Deamidated Gliadin Ab IgG 4 units (0-19); Immunoglobulin A,Qn 265 mg/dL (87-352); t-Transglutaminase IgA <2 U/mL (0-3)
[2022-01-21 16:09] LABS: Interpretation Negative (Negative)
[2022-01-22 18:16] LABS: ANA Screen, IFA Positive (.)
[2022-01-22 22:08] LABS: CCP Antibodies IgG/IgA 4 units (0-19)
[2022-01-26 16:07] LABS: Percent Free Testosterone 1.79 % (0.50-2.80); Testosterone Free 0.55 ng/dL (0.10-0.85); Testosterone Total 30.5 ng/dL (10.0-55.0)
== END ==
PROVIDERS: PCP Registered Nurse Diabetes Educator; Referring Provider Family Medicine; Visit Provider Family Medicine
DX: K58.9 Irritable bowel syndrome, unspecified (principal); R11.2 Nausea with vomiting, unspecified; B34.9 Viral infection, unspecified; M25.50 Pain in unspecified joint; R21 Rash and other nonspecific skin eruption; R53.83 Other fatigue
CPT/HCPCS: 36415; 80053; 82784; 83013; 83516; 84402; 84403; 85025; 85651; 86038; 86140; 86160; 86200; 86430

== ENCOUNTER → 2022-02-14 12:59 | Outpatient (CLI) | payer OTHER, MEDICAID, SELFPAY ==
--- NOTE | 2022-02-14 13:00 | DI.ECHO.S_ITS ---
[facility] +---------+ : : [address] : [address] : : : : [place], : : : : [place] [address] : : : : Phone: [phone] + [facility][phone] Echocardiogram Report + + :Name: SAJI CRUZ Study Date: 02/14/2022 Height: 67 in : :[facility] ReadingLocation: Weight: 165 lb : : Gender: Female BSA: 1.9 m2 : :: 1985 Age: 36 yrs BP: 118/78 mmHg: :Reason For Study: Palpitations : :Ordering Physician: BECKA, : :MOISES Performed By: Fermin Mckay : :Referring: MOISES AGUDELO : + + Interpretation Summary The left ventricle is normal in size and wall thickness. Left ventricular systolic function is normal. The ejection fraction is estimated to be 55-60%. There are no focal wall motion abnormalities. Diastolic parameters suggest probable normal left ventricular diastolic function and normal filling pressures. The right ventricle is normal in size and function. The right ventricular systolic pressure is estimated to be at least 22 mmHg based on an estimated right atrial pressure of 3 mm Hg. Both atria are normal in size. There is no significant valvular heart disease. The aortic root is normal size. Procedure: A two-dimensional transthoracic echocardiogram with color flow and Doppler was performed. The study quality was technically adequate. There is no prior echocardiogram noted for this patient. The patient was in normal sinus rhythm during the exam. Left Ventricle: The left ventricle is normal in size and wall thickness. Left ventricular systolic function is normal. The ejection fraction is estimated to be 55-60%. There are no focal wall motion abnormalities. Diastolic parameters suggest probable normal left ventricular diastolic function and normal filling pressures. Right Ventricle: The right ventricle is normal in size and function. Atria: Both atria are normal in size. The interatrial septum grossly appears intact with no obvious evidence for an atrial septal defect. Mitral Valve: The mitral valve is normal in structure and function. There is trace mitral regurgitation. Aortic Valve: The aortic valve is normal in structure and function. No aortic regurgitation is present. Tricuspid Valve: The tricuspid valve is normal in structure and function. There is trace tricuspid regurgitation. The right ventricular systolic pressure is estimated to be at least 22 mmHg based on an estimated right atrial pressure of 3 mm Hg. Pulmonic Valve: The pulmonic valve is normal in structure and function. There is a trace or physiologic amount of pulmonic regurgitation. There is no significant valvular heart disease. Great Vessels: The aortic root is normal size. The dimensions of the ascending aorta are normal. The IVC is of normal diameter and collapses greater than 50% with a sniff. This suggests a low right atrial pressure of 3 mm Hg. Pericardium/ Pleura There is no pericardial effusion. There is no pleural effusion. MMode/2D Measurements & Calculations LVIDd: 5.0 cm LVOT diam: 2.0 cm LVIDs: 3.3 cm Ao root diam: 2.5 cm IVSd: 0.68 cm asc Aorta Diam: 2.6 cm LVPWd: 0.54 cm LV givens. diameter/BSA (cm/m^2): 2.7 LV sys. diameter/BSA (cm/m^2): 1.8 FS: 33.9 % LA A2 area: 15.4 cm2 RA long axis: 4.1 cm LA A4 area: 15.2 cm2 RA area: 15.0 cm2 LA length (vol): 4.4 cm RA vol: 46.8 ml LA vol: 44.8 ml RA : 25.1 ml/m2 LA vol index: 24.0 ml/m2 RVD1 (basal): 4.0 cm TAPSE: 2.4 cm Doppler Measurements & Calculations Ao V2 max: 149.1 cm/sec LVOT Max Andrea: 112.4 cm/sec Ao V2 mean: 98.1 cm/sec LV V1 max P.1 mmHg Ao V2 VTI: 27.8 cm LV V1 VTI: 22.7 cm Ao max P.9 mmHg Ao mean P.5 mmHg ERIN(I,D): 2.5 cm2 MV E max andrea: 88.8 cm/sec ERIN(V,D): 2.3 cm2 MV A max andrea: 51.1 cm/sec ERIN indexed to BSA (cm^2/m^2): 1.3 MV E/A: 1.7 sev ratio: 0.82 Med Peak E' Andrea: 9.6 cm/sec E/E' med: 9.2 Lat Peak E' Andrea: 15.4 cm/sec E/E' lat: 5.8 E/e' average: 7.5 MV dec time: 0.17 sec TR max andrea: 217.1 cm/sec TR max P.8 mmHg SV(LVOT): 69.7 ml Reading Physician:05:05 PM
--- NOTE | 2022-02-14 13:01 | DI.NM.S_ITS ---
PROCEDURE: NM EXERCISE TREADMILL NON NUC COMPARISON: None. INDICATIONS: Palpitations FINDINGS: Rest ECG sinus rhythm. Ta protocol 10:44, maximum heart rate 190 bpm (103% peak predicted), maximum blood pressure 160/70, 12.8 METS, JESSICA -13%. Stress ECG sinus tachycardia no ST segment depressions, ectopy or arrhythmia. The patient reported 5 out of 10 chest tightness in the beginning of the test which resolved 5 minutes into exercise. IMPRESSION: No evidence of exercise-induced ischemia or arrhythmia. Normal blood pressure response to exercise. Good exercise capacity. Dictated by: Lisseth Scott D.O. on 02/15/2022 at 12:50 Approved by: Lisseth Scott D.O. on 02/15/2022 at 12:53
[2022-02-14 13:56] LABS: COVID19 -Nasal RAPID Negative (Negative)
== END ==
PROVIDERS: PCP Registered Nurse Diabetes Educator; Referring Provider Internal Medicine Cardiovascular Disease; Visit Provider Internal Medicine Cardiovascular Disease
DX: R00.2 Palpitations (principal); R42 Dizziness and giddiness; Z20.822 Contact with and (suspected) exposure to COVID-19; R06.09 Other forms of dyspnea
CPT/HCPCS: 87635; 93017; 93306

== ENCOUNTER → 2022-06-28 15:39 | Outpatient (CLI) | payer OTHER, MEDICAID, SELFPAY ==
--- NOTE | 2022-06-28 15:41 | DI.RAD.S_ITS ---
PROCEDURE: XR TOE RT MIN 2V INDICATIONS: Right foot injury TECHNIQUE: 3 views of the 4th and 5th toe(s) acquired. COMPARISON: [facility], , XR FOOT RT MIN 3V, 06/28/2022, 15:41. FINDINGS: Bones: No fractures or dislocations. No suspicious bony lesions. Soft tissues: No suspicious soft tissue densities. Soft tissue swelling over the base of the 5th toe. IMPRESSION: No acute osseous abnormalities. If clinical symptoms persist, consider repeat exam in 7-10 days. Dictated by: Jonah Trimble M.D. on 06/28/2022 at 17:24 Approved by: Jonah Trimble M.D. on 06/30/2022 at 10:27
--- NOTE | 2022-06-28 15:41 | DI.RAD.S_ITS ---
PROCEDURE: XR FOOT RT MIN 3V INDICATIONS: Right foot injury TECHNIQUE: 3 views of the foot were acquired. COMPARISON: [facility], CR, XR TOE RT MIN 2V, 06/28/2022, 15:41. FINDINGS: Bones: No fractures or dislocations. No suspicious bony lesions. Soft tissues: No tibiotalar joint effusion. Achilles tendon appears normal. IMPRESSION: No acute osseous abnormalities. If clinical symptoms persist or clinical suspicion for pathology is high, a repeat examination in 7-10 days is suggested for further evaluation. Dictated by: Jonah Trimble M.D. on 06/28/2022 at 17:24 Approved by: Jonah Trimble M.D. on 06/30/2022 at 10:28
== END ==
PROVIDERS: PCP Registered Nurse Diabetes Educator; Referring Provider Nurse Practitioner Family; Visit Provider Nurse Practitioner Family
DX: S99.921A Unspecified injury of right foot, initial encounter (principal); X58.XXXA Exposure to other specified factors, initial encounter
CPT/HCPCS: 73630; 73660

== ENCOUNTER 2022-09-29 11:38 | Emergency (ER) | payer OTHER, MEDICAID, SELFPAY ==
[2022-09-29] VITALS (7 sets, daily range): BP systolic 113–128; BP diastolic 70–87; PULSE 71–92; RESP 16–20; TEMP 37.1; O2SAT 98–100; BMI 24.3
[2022-09-29] MEDS: ONDANSETRON 4 MG/2 ML INJ IV (12:12)
[2022-09-29 12:23] LABS: Alanine Aminotransferase 19 IU/L (<35); Albumin 4.6 g/dL (3.5-5.0); Albumin Globulin Ratio 1.6 (1.0-2.8); Alkaline Phosphatase 41 U/L (38-126); Aspartate Aminotransferase 23 IU/L (14-36); BUN Creatinine Ratio 7.8 (6-22); Bilirubin Total 0.7 mg/dL (0.2-1.3); Blood Urea Nitrogen 5 mg/dL (7-17); Calcium 9.1 mg/dL (8.4-10.2); Carbon Dioxide 29 mmol/L (22-32); Chloride 103 mmol/L (98-107); Estimated Glomerular Filt Rate > 60 mL/min (>60); Globulin 2.9 g/dL (1.7-4.1); Glucose 99 mg/dL (70-100); HEMOLYSIS < 15 (0-50); Lipase 82 U/L (23-300); Potassium 3.6 mmol/L (3.4-5.1); Sodium 138 mmol/L (137-145); Total Protein 7.5 g/dL (6.3-8.2)
[2022-09-29 12:40] LABS: Add Manual Diff / Slide Review NO; Basophils Absolute Auto 0 /uL (0-100); Basophils Percent Auto 0.8 % (0-2); Eosinophils Absolute Auto 0 /uL (0-450); Eosinophils Percent Auto 0.7 % (2-4); Hematocrit 39.2 % (36-46); Hemoglobin 13.3 g/dL (12.0-16.0); Lymphocytes Absolute Auto 2200 /uL (1100-4500); Lymphocytes Percent Auto 41.2 % (25-40); Mean Corpuscular Hemoglobin 29.1 PG (26-34); Mean Corpuscular Volume 85.6 fL (80-100); Monocytes Absolute Auto 300 /uL (0-900); Monocytes Percent Auto 5.3 % (3-14); Neutrophils Absolute Auto 2800 /uL (1500-7000); Platelet Count 170 X10^3/uL (150-400); Red Blood Cell Count 4.58 X10^6/uL (4.0-5.2); Red Cell Distribution Width 12.6 % (11.6-14.8); White Blood Cell Count 5.4 X10^3/uL (4.5-11.0)
--- NOTE | 2022-09-29 13:04 | ED.NAVMDI ---
HPI - Nausea/Vomiting/Diarrhea General Chief complaint: Nausea/Vomiting/Diarrhea Stated complaint: dizziness, palpitation, chest tightness, vomitting Time Seen by Provider: 09/29/22 12:04 Source: patient Mode of arrival: Ambulatory History of Present Illness HPI Narrative: Patient is a 37-year-old female history of anxiety presenting today with abdominal pain and chest tightness after starting antibiotics for a cat bite. She was recently started on clindamycin and doxycycline 3 days ago after her cat bit and clawed her. She is having some abdominal discomfort and today had some chest tightness. Now questioning her she feels like her voice is a little bit hoarse. She does not have a rash. Previously when she had reactions to penicillin and sulfa she had rashes all over her body she is not having that now. She is no tongue swelling or lip swelling. She is managing her own secretions. Vitals are stable. She was feeling little bit palpitations she is had a little bit of vomiting. She was bit and scratched on her left arm that actually looks good no evidence of infection at this time. She reports she is been keeping that clean and dry. Related Data Home Medications Medication Instructions Recorded Confirmed vit no.95-ferrous 1 tab PO DAILY 01/15/18 07/01/22 fumarate 28 mg-folic acid 800 mcg tablet () Pravin Brianna Quintana PO DAILY 02/13/22 07/01/22 Shilpichristi Guerrero Cordon PO DAILY 02/13/22 07/01/22 ashwaganda PO DAILY 02/13/22 07/01/22 vitamin B complex 1 tab PO DAILY 02/13/22 07/01/22 buspirone 5 mg tablet 5 mg PO BID 06/10/22 07/01/22 hydroxyzine HCl 10 mg tablet 10 mg PO BEDTIME 06/28/22 07/01/22 Previous Rx's Medication Instructions Recorded atomoxetine 40 mg capsule 40 mg PO QAM #60 caps 07/01/22 (Strattera) moxifloxacin 400 mg tablet 400 mg PO DAILY 7 days #7 tabs 09/29/22 prednisone 20 mg tablet 40 mg PO DAILY #10 tabs 09/29/22 Allergies Allergy/AdvReac Type Severity Reaction Status Date / Time Penicillins Allergy Intermediate Rash Verified 07/01/22 08:02 Sulfa (Sulfonamide Allergy Intermediate Rash Verified 07/01/22 08:02 Antibiotics) Review of Systems Review of Systems ROS Unobtainable: All systems reviewed & are unremarkable except as noted in HPI and below Patient History Medical History Abnormal Pap smear of cervix (~2012) ADHD, predominantly inattentive type Anxiety (~2004) Chicken pox Depression Endometriosis (~2002) History of blood transfusion IBS (irritable bowel syndrome) Ovarian cyst Surgical History Anesthesia History of colonoscopy (~2012) History of endoscopy (~2012) History of laparoscopy (~09/24/21) Rush teeth removed (~2004) Family History Sister PCOS (polycystic ovarian syndrome) Family/Other Endometriosis Mother Thyroid disease Danielito's disease Fibromyalgia POTS (postural orthostatic tachycardia syndrome) Social History household members: spouse Smoking Status: Never smoker alcohol intake: current Smoking Status: Never smoker alcohol intake frequency: holidays/special occasions only Substance Use Type: does not use Exam Initial Vital Signs Initial Vital Signs: Vital Signs Temperature 98.7 F 09/29/22 11:44 Pulse Rate 92 H 09/29/22 11:44 Respiratory Rate 16 09/29/22 11:44 Blood Pressure 117/80 09/29/22 11:44 Pulse Oximetry 98 09/29/22 11:44 Oxygen Delivery Method Room Air 09/29/22 11:44 GENERAL: Alert pleasant 37-year-old female and in no acute distress. HEENT: Head atraumatic,EOMI, pupils reactive, face symmetric, moist mucous membrane. Slightly hoarse voice but managing own secretions no lip swelling or tongue swelling s CARDIOVASCULAR: Regular rate and rhythm without murmurs, rubs or gallops. RESPIRATORY: Breath sounds equal bilaterally, no wheezes rales or rhonchi. ABDOMEN: Soft, nontender. Normoactive bowel sounds all 4 quadrants. No guarding or rebound. EXTREMITIES: Normal range of motion, no clubbing or edema. Neurovascularly intact NEUROLOGICAL: Alert and oriented x4. SKIN: Warm, dry, no laceration, no petechiae, no rashes or lesions. No urticaria or hives. Superficial scratches on left arm no evidence abscess erythema or cellulitis Course Orders Ordered: ED Orders 09/29/22 11:59 Comprehensive Metabolic Panel Stat Lipase Stat 09/29/22 12:12 EKG-12 Lead Stat 09/29/22 12:24 Complete Blood Count AUTO DIFF Stat 09/29/22 13:54 Consult to BUILDING MAINTENANCE CUSTODIAN - Specimen Accessioner Stat Discontinued Medications Diphenhydramine HCl (Diphenhydramine 50 Mg/Ml Vial) 25 mg IV NOW ONE Stop: 09/29/22 13:09 Last Admin: 09/29/22 13:34 Dose: 25 mg Documented By: RB Methylprednisolone (Methylprednisolone 125 Mg/2 Ml Vial) 125 mg IV NOW ONE Stop: 09/29/22 13:09 Last Admin: 09/29/22 13:34 Dose: 125 mg Documented By: RB Ondansetron HCl (Ondansetron 4 Mg/2 Ml Inj) 4 mg IV NOW PRN PRN Reason: Nausea And Vomiting Last Admin: 09/29/22 12:12 Dose: 4 mg Documented By: OW Ondansetron HCl (Ondansetron 4 Mg Odt) 4 mg PO NOW PRN PRN Reason: Nausea And Vomiting Vital Signs Vital signs: Vital Signs - 8 hr 09/29/22 11:44 09/29/22 13:30 09/29/22 13:30 Temperature 98.7 F Pulse Rate 92 H Respiratory Rate 16 Blood Pressure 117/80 122/77 Pulse Oximetry 98 100 Oxygen Delivery Method Room Air 09/29/22 13:45 09/29/22 13:45 09/29/22 14:00 Temperature Pulse Rate 83 72 Respiratory Rate Blood Pressure 128/87 118/76 Pulse Oximetry 99 100 Oxygen Delivery Method 09/29/22 14:15 09/29/22 14:30 09/29/22 14:45 Temperature Pulse Rate 71 72 71 Respiratory Rate 20 Blood Pressure 119/74 114/72 113/70 Pulse Oximetry 100 99 99 Oxygen Delivery Method Room Air MDM - Nausea/Vomiting/Diarrhea Lab Data 09/29/22 12:24 09/29/22 11:59 Labs: Lab Results 09/29/22 09/29/22 Range/Units 11:59 12:24 WBC 5.4 (4.5-11.0) X10^3/uL RBC 4.58 (4.0-5.2) X10^6/uL Hgb 13.3 (12.0-16.0) g/dL Hct 39.2 (36-46) % MCV 85.6 (80-100) fL MCH 29.1 (26-34) PG MCHC 34.0 (30-36) % RDW 12.6 (11.6-14.8) % Plt Count 170 (150-400) X10^3/uL Neut % (Auto) 52.0 (50-75) % Lymph % (Auto) 41.2 H (25-40) % [place] % (Auto) 5.3 (3-14) % Eos % (Auto) 0.7 L (2-4) % Baso % (Auto) 0.8 (0-2) % Neut # (Auto) 2800 (1941-9606) /uL Lymph # (Auto) 2200 (3110-9737) /uL [place] # (Auto) 300 (0-900) /uL Eos # (Auto) 0 (0-450) /uL Baso # (Auto) 0 (0-100) /uL Sodium 138 (137-145) mmol/L Potassium 3.6 (3.4-5.1) mmol/L Chloride 103 (98-107) mmol/L Carbon Dioxide 29 (22-32) mmol/L BUN 5 L (7-17) mg/dL Creatinine 0.64 (0.52-1.04) mg/dL Estimated GFR > 60 (>60) mL/min BUN/Creatinine Ratio 7.8 (6-22) Glucose 99 (70-100) mg/dL Calcium 9.1 (8.4-10.2) mg/dL Total Bilirubin 0.7 (0.2-1.3) mg/dL AST 23 (14-36) IU/L ALT 19 (<35) IU/L Alkaline Phosphatase 41 (38-126) U/L Total Protein 7.5 (6.3-8.2) g/dL Albumin 4.6 (3.5-5.0) g/dL Globulin 2.9 (1.7-4.1) g/dL Albumin/Globulin Ratio 1.6 (1.0-2.8) Lipase 82 (23-300) U/L Point of Care Testing Test Results Negative Urine Dip Bedside Urine Glucose Negative Bedside Urine Bilirubin - Negative Bedside Urine Ketone - Negative Urine Specific [place] 1.000 Bedside Urine Occult Blood - Negative Bedside Urine pH 6.0 Bedside Urine Protein - Negative Bedside Urine Urobilinogen - Negative Bedside Urine Nitrite - Negative Bedside Urine Leukocytes - Negative Esterase ECG Data Interpretation: Sinus rhythm rate interval [address] changes no T-wave inversions MDM Narrative Medical decision making narrative: The patient presents today with chest tightness and abdominal discomfort after starting 2 antibiotics for a cat bite. No hives. Questionable allergic reaction but absolutely no sign of anaphylaxis. She is given Solu-Medrol and Benadryl here. Blood work is overall reassuring. Discussed with her about switching up antibiotic to moxifloxacin which he is agreeable to. Unclear if this is true allergy versus side effect. Pharmacy called shortly after patient was discharged reporting that insurance will not cover moxifloxacin. Antibiotics are changed to Levaquin and Flagyl. Discharge Plan Departure Patient Disposition: Home Clinical Impression: Adverse drug reaction Instructions: DI for Adverse Drug Reaction -- Other Activity Restrictions/Additional Instructions: *You have been diagnosed with drug reaction *What to do: At this time difficult to tell if her having true allergy reaction versus a drug reaction. I think reasonable to change her antibiotics *Continue to take medications as directed --> SENT TO [facility] Prednisone 40 mg twice a day for 5 days Moxifloxacin 400 mg once daily 7 days Stop clindamycin and doxycycline *Follow up with your primary care provider in 2-3 days or call [phone] *Return to ER if you should have tongue swelling lip swelling difficulty breathing ongoing rash or any new, worsening or concerning symptoms Prescriptions: New prednisone 20 mg tablet 40 mg PO DAILY Qty: 10 0RF moxifloxacin 400 mg tablet 400 mg PO DAILY 7 Days Qty: 7 0RF No Action hydroxyzine HCl 10 mg tablet 10 mg PO BEDTIME buspirone 5 mg tablet 5 mg PO BID atomoxetine [Strattera] 40 mg capsule 40 mg PO QAM Qty: 60 0RF Rx Instructions: After 3 days if ineffective and no side effects may increase to 2 caps daily ashwaganda PO DAILY Rx Instructions: 1 tab by mouth daily vitamin B complex Tablet 1 tab PO DAILY Shilpi Cesar Cordon PO DAILY Pravin Brianna Quintana PO DAILY PNV cmb#95-ferrous fumarate-FA [] 28 mg iron- 800 mcg Tablet 1 tab PO DAILY Referrals: Miscellaneous,Doctor, MD [Primary Care Provider] - Stand Alone Forms: Patient Portal/API
[2022-09-29] MEDS: diphenhydrAMINE 50 MG/ML VIAL 25 MG IV (13:34)
[2022-09-29] MEDS: methylPREDNISolone 125 MG/2 ML VIAL IV (13:34)
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
== END 2022-09-29 15:05 | disposition home or self-care (01) ==
PROVIDERS: Emergency Provider Emergency Medicine
DX: R07.9 Chest pain, unspecified (principal); R10.9 Unspecified abdominal pain; T50.905A Adverse effect of unspecified drugs, medicaments and biological substances, initial encounter
CPT/HCPCS: 36415; 80053; 81003; 81025; 83690; 85025; 93005; 96374; 96375; 99284; J1200; J2405; J2930

== ENCOUNTER 2024-01-04 14:29 | Emergency (ER) | payer OTHER, MEDICAID, SELFPAY ==
[2024-01-04 14:35] VITALS: BP 120/68; PULSE 98; RESP 18; TEMP 37.7; O2SAT 100; BMI 21.4
--- NOTE | 2024-01-04 14:52 | ED.URI ---
HPI - URI/Sore Throat <Ankita Zabala PA-C - Last Filed: 01/04/24 16:53> General Chief Complaint: Upper Respiratory Symptoms Stated Complaint: body rash,sob,after Flu/covid shot Time Seen by Provider: 01/04/24 14:51 Source: patient Mode of arrival: Ambulatory History of Present Illness HPI Narrative: Patient is a pleasant 38-year-old female presents to the emergency room department today by herself. Patient just recently had her COVID and her Pneumovax this past Friday. Past 24-48 hours the patient has felt kind of run down, fatigued, and then worsening kind of body aches, low-grade fever, and then a sudden onset of full body rash that now has pretty much resolved and now is just around the collar of her neck. She has had allergies and reactions in the past vaccines. Her mother had reaction and rash needed to be admitted to the hospital when she had her COVID shot. Patient states she came in because she was feeling her heart rate fluctuate with any type of activity and she felt palpitations. She also was short of breath with any type of activity. Patient use hydrocortisone on the rash in the rashes pretty much resolved. Patient denies recent travel, recent antibiotics, recent sick contacts. She has not been around any farm animals. Recent up-to-date on vaccines for her COVID booster and her Pneumovax. 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 She did take some ibuprofen at home with some limited relief of her symptoms. Mild nausea no vomiting, no diarrhea constipation, no urinary symptoms, no weakness, blurred vision, syncope, or signs and symptoms of neurologic symptoms. Multiple of her students had foot hand mouth, strep throat, URI like symptoms, viral infections. Related Data Home Medications Medication Instructions Recorded Confirmed vit no.95-ferrous 1 tab PO DAILY 01/15/18 07/01/22 fumarate 28 mg-folic acid 800 mcg tablet () Pravin Quintana PO DAILY 02/13/22 07/01/22 Shilpi Cesarchristi Cordon PO DAILY 02/13/22 07/01/22 ashwaganda PO DAILY 02/13/22 07/01/22 vitamin B complex 1 tab PO DAILY 02/13/22 07/01/22 buspirone 5 mg tablet 5 mg PO BID 06/10/22 07/01/22 hydroxyzine HCl 10 mg tablet 10 mg PO BEDTIME 06/28/22 07/01/22 Previous Rx's Medication Instructions Recorded atomoxetine 40 mg capsule 40 mg PO QAM #60 caps 07/01/22 (Strattera) prednisone 20 mg tablet 40 mg (2 x 20 mg) PO DAILY #10 tabs 09/29/22 clindamycin HCl 300 mg capsule 300 mg PO TID #30 caps 01/04/24 ondansetron HCl 4 mg tablet 4 mg PO Q6-8H PRN nausea and 01/04/24 vomiting #14 tabs Allergies Allergy/AdvReac Type Severity Reaction Status Date / Time Penicillins Allergy Intermediate Rash Verified 07/01/22 08:02 Sulfa (Sulfonamide Allergy Intermediate Rash Verified 07/01/22 08:02 Antibiotics) Review of Systems <Ankita Zabala PA-C - Last Filed: 01/04/24 16:53> Review of Systems Narrative: Negative except as above Cardiovascular Comments: Tachycardia Respiratory Comments: Shortness of breath with exertion Gastrointestinal Comments: Nausea Musculoskeletal Comments: Body aches Integumentary/Breasts Comments: Rash now resolved only around her neck Allergic/Immunologic Comments: Rash now resolved Patient History <Ankita Zabala PA-C - Last Filed: 01/04/24 16:53> Medical History ADHD, predominantly inattentive type Depression Anxiety (~2004) Chicken pox Endometriosis (~2002) Abnormal Pap smear of cervix (~2012) History of blood transfusion Ovarian cyst IBS (irritable bowel syndrome) Surgical History Anesthesia [facility] teeth removed (~2004) History of endoscopy (~2012) History of colonoscopy (~2012) History of laparoscopy (~09/24/21) Family History Sister PCOS (polycystic ovarian syndrome) Family/Other Endometriosis Mother Thyroid disease Danielito's disease Fibromyalgia POTS (postural orthostatic tachycardia syndrome) Social History household members: spouse Smoking Status: Former smoker alcohol intake: current Smoking Status: Former smoker alcohol intake frequency: holidays/special occasions only Substance Use Type: does not use Exam <Ankita Zabala PA-C - Last Filed: 01/04/24 16:53> Initial Vital Signs Initial Vital Signs: Vital Signs Temperature 99.8 F H 01/04/24 14:35 Pulse Rate 98 H 01/04/24 14:35 Respiratory Rate 18 01/04/24 14:35 Blood Pressure 120/68 01/04/24 14:35 Pulse Oximetry 100 01/04/24 14:35 Oxygen Delivery Method Room Air 01/04/24 14:35 Vital signs are reviewed low-grade temp given Tylenol here in the emergency department Const General: cooperative, comfortable, well developed, well groomed, No acute distress, No in distress, No anxious, ill appearing, No intoxicated appearing and other (Appears if she does not feel well) HENMT Head: normal to inspection, normocephalic, atraumatic, No abrasion and No cyanosis of lips/distal nose Nose: external nose normal, nares normal, nasal mucous membranes and turbinates normal, septum normal and mucous membranes and turbinates abnormal Face and sinus: normal facial exam and sinuses nontender Mouth: oral mucosae normal, lip normal and tongue normal Teeth and gingiva: dentition normal and gingiva normal Throat: posterior oropharynx normal Eyes General: Yes appearance normal, both eyes and all related structures Eyelids: eyelids normal Sclera: sclerae normal Cornea: corneas normal Pupils: PERRL EOM: EOM intact bilaterally Neck Lymphatic: No lymphadenopathy Resp Effort & Inspection: normal respiratory effort, able to speak in complete sentences, normal respiratory pattern, no audible wheezes, no cough, respiratory effort not decreased, no grunting, not labored, no nasal flaring, no respiratory distress, no retractions, no stridor, not tachypneic, no tripod positioning, no use of accessory muscles and No prolonged expiratory phase Cardio Rate: regular rate Rhythm: regular rhythm Heart Sounds: S1 normal, S2 normal, no click, no gallops, no murmurs, no rubs and no other Pulses: radial pulses present Skin General: elasticity normal, turgor normal, No atrophy, warm and other (Faint rash around the neck does not appear to be infected, not spreading,) Neuro Other: Cranial nerves are grossly intact, cognition, speech, gait, motor, sensory are all within normal limits Extrem Other: Range of motion, strength, pulses, cap refill preserved and lower extremities. Psych Other: Appearance, mental status, speech, movement, mood, affect, attitude, thought process, thought content, judgment are all within normal limits <Marialuisa Tong MD - Last Filed: 01/04/24 20:59> Initial Vital Signs Initial Vital Signs: Vital Signs Temperature 99.8 F H 01/04/24 14:35 Pulse Rate 98 H 01/04/24 14:35 Respiratory Rate 18 01/04/24 14:35 Blood Pressure 120/68 01/04/24 14:35 Pulse Oximetry 100 01/04/24 14:35 Oxygen Delivery Method Room Air 01/04/24 14:35 Scores <Ankita Zabala PA-C - Last Filed: 01/04/24 16:53> GCS Citation: 15 Course <Ankita Zabala PA-C - Last Filed: 01/04/24 16:53> Orders Ordered: ED Orders 01/04/24 14:48 Respiratory Panel (Film Array) Stat 01/04/24 15:46 Chest [XR chest 2V] Stat 01/04/24 16:14 Strep Grp A by PCR Rapid Stat Discontinued Medications Acetaminophen (Acetaminophen 325 Mg Tablet) 650 mg PO NOW ONE Stop: 01/04/24 14:52 Last Admin: 01/04/24 15:03 Dose: 650 mg Documented By: JOSEFINA Diphenhydramine HCl (Diphenhydramine 25 Mg Tablet) 25 mg PO NOW ONE Stop: 01/04/24 15:20 Last Admin: 01/04/24 15:47 Dose: 25 mg Documented By: JOSEFINA Sodium Chloride (Normal Saline 0.9%) 500 mls @ 1,000 mls/hr IV BOLUS PRN PRN Reason: Fluid replacement Last Admin: 01/04/24 16:33 Dose: 1,000 mls/hr Documented By: JOSEFINA Vital Signs Vital signs: Vital Signs - 8 hr 01/04/24 14:35 01/04/24 16:10 01/04/24 16:58 Temperature 99.8 F H 98.3 F Pulse Rate 98 H 85 Pulse Rate [Orthostatic Lying] 80 Pulse Rate [Orthostatic Sitting] 85 Pulse Rate [Orthostatic Standing] 95 H Respiratory Rate 18 16 Blood Pressure 120/68 112/66 Blood Pressure [Orthostatic Lying] 112/60 Blood Pressure [Orthostatic Sitting] 113/66 Blood Pressure [Orthostatic Standing] 111/72 Pulse Oximetry 100 99 Oxygen Delivery Method Room Air Room Air Reviewed <Marialuisa Tong MD - Last Filed: 01/04/24 20:59> Orders Ordered: ED Orders 01/04/24 14:48 Respiratory Panel (Film Array) Stat 01/04/24 15:46 Chest [XR chest 2V] Stat 01/04/24 16:14 Strep Grp A by PCR Rapid Stat Discontinued Medications Acetaminophen (Acetaminophen 325 Mg Tablet) 650 mg PO NOW ONE Stop: 01/04/24 14:52 Last Admin: 01/04/24 15:03 Dose: 650 mg Documented By: JOSFEINA Diphenhydramine HCl (Diphenhydramine 25 Mg Tablet) 25 mg PO NOW ONE Stop: 01/04/24 15:20 Last Admin: 01/04/24 15:47 Dose: 25 mg Documented By: JOSEFINA Sodium Chloride (Normal Saline 0.9%) 500 mls @ 1,000 mls/hr IV BOLUS PRN PRN Reason: Fluid replacement Last Admin: 01/04/24 16:33 Dose: 1,000 mls/hr Documented By: JOSEFINA Vital Signs Vital signs: Vital Signs - 8 hr 01/04/24 14:35 01/04/24 16:10 01/04/24 16:58 Temperature 99.8 F H 98.3 F Pulse Rate 98 H 85 Pulse Rate [Orthostatic Lying] 80 Pulse Rate [Orthostatic Sitting] 85 Pulse Rate [Orthostatic Standing] 95 H Respiratory Rate 18 16 Blood Pressure 120/68 112/66 Blood Pressure [Orthostatic Lying] 112/60 Blood Pressure [Orthostatic Sitting] 113/66 Blood Pressure [Orthostatic Standing] 111/72 Pulse Oximetry 100 99 Oxygen Delivery Method Room Air Room Air MDM - URI/Sore Throat <Ankita Zabala PA-C - Last Filed: 01/04/24 16:53> Lab Data Labs: Lab Results 01/04/24 01/04/24 Range/Units 14:48 16:14 Chlamy pneumoniae PCR Not detected (Not Detect) Adenovirus (PCR) Not detected (Not Detect) B. pertussis DNA (PCR) Not detected (Not Detect) B.parapertussis DNA PCR Not detected (Not Detecte) Coronavirus OC43 (PCR) Not detected (Not Detect) Coronavirus HKU1 (PCR) Not detected (Not Detect) Coronavirus 229E (PCR) Not detected (Not Detect) SARS-CoV-2 (PCR) Not detected (Not Detecte) Coronavirus NL63 (PCR) Not detected (Not Detect) Human Metapneumovir PCR Not detected (Not Detect) Influenza Type A (PCR) Not detected (Not Detect) Influenza Type B (PCR) Not detected (Not Detect) M. pneumoniae (PCR) Not detected (Not Detect) Parainfluenza 1 (PCR) Not detected (Not Detect) Parainfluenza 2 (PCR) Not detected (Not Detect) Parainfluenza 3 (PCR) Not detected (Not Detect) Parainfluenza 4 (PCR) Not detected (Not Detect) RSV (PCR) Not detected (Not Detect) Entero/Rhino (PCR) Not detected (Not Detect) Group A Strep (PCR) Positive H (Negative) Imaging Data Chest x-ray: My Impression: Negative for any acute cardiopulmonary abnormalities Radiologist's Impression: [place] [address] XRay Report Signed Patient: Vanna Eli MR#: [id number] : 1985 Acct:[id number] Age/Sex: 38 / F Date of Service: 01/04/24 Loc: ED Accession Number: [id number] Procedure: XR chest 2V Ordering Provider: Ankita Zabala PA-C PROCEDURE: XR CHEST 2V INDICATIONS: Fatigue, cough, shortness of breath TECHNIQUE: 2 views of the chest were acquired. COMPARISON: None. FINDINGS: Surgical changes and devices: None. Lungs and pleura: Lungs are clear. No pleural effusions or pneumothorax. Mediastinum: Mediastinal contours are normal. Heart size is normal. Bones and chest wall: No suspicious bony abnormalities. Soft tissues appear unremarkable. IMPRESSION: No focal infiltrates are seen. No acute cardiopulmonary abnormality is seen. Dictated by: Stefan Jeff M.D. on 01/04/2024 at 15:26 Approved by: Stefan Jeff M.D. on 01/04/2024 at 15:26 MDM Narrative Medical decision making narrative: Pleasant 38-year-old female presents to the emergency department recently got her COVID and Pneumovax on Friday. 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 Low-grade fever at home, mild nausea, body aches. Motrin at home, Respiratory panel is negative Orthostatics were mildly positive IV IV fluids Oral Tylenol for low-grade fever Strep screen positive Chest x-ray neg Oral Benadryl for her rash Supportive therapy ED education Differential diagnosis; pneumonia, influenza, COVID, vaccine response cup of strep throat <Marialuisa Tong MD - Last Filed: 01/04/24 20:59> Lab Data Labs: Lab Results 01/04/24 01/04/24 Range/Units 14:48 16:14 Chlamy pneumoniae PCR Not detected (Not Detect) Adenovirus (PCR) Not detected (Not Detect) B. pertussis DNA (PCR) Not detected (Not Detect) B.parapertussis DNA PCR Not detected (Not Detecte) Coronavirus OC43 (PCR) Not detected (Not Detect) Coronavirus HKU1 (PCR) Not detected (Not Detect) Coronavirus 229E (PCR) Not detected (Not Detect) SARS-CoV-2 (PCR) Not detected (Not Detecte) Coronavirus NL63 (PCR) Not detected (Not Detect) Human Metapneumovir PCR Not detected (Not Detect) Influenza Type A (PCR) Not detected (Not Detect) Influenza Type B (PCR) Not detected (Not Detect) M. pneumoniae (PCR) Not detected (Not Detect) Parainfluenza 1 (PCR) Not detected (Not Detect) Parainfluenza 2 (PCR) Not detected (Not Detect) Parainfluenza 3 (PCR) Not detected (Not Detect) Parainfluenza 4 (PCR) Not detected (Not Detect) RSV (PCR) Not detected (Not Detect) Entero/Rhino (PCR) Not detected (Not Detect) Group A Strep (PCR) Positive H (Negative) Discharge Plan Departure Patient Disposition: Home Clinical Impression: Pharyngitis, streptococcal Vaccine reaction Qualifiers: Encounter type: initial encounter Qualified Code(s): T50.Z95A - Adverse effect of other vaccines and biological substances, initial encounter Activity Restrictions/Additional Instructions: Stay hydrated Plenty of rest Balanced diet Tylenol and ibuprofen for fevers and body aches Respiratory panel is negative Chest x-ray is negative for pneumonia Strep positive Prescriptions: New clindamycin HCl 300 mg capsule 300 mg PO TID Qty: 30 0RF ondansetron HCl 4 mg tablet 4 mg PO Q6-8H PRN (Reason: nausea and vomiting) Qty: 14 0RF No Action hydroxyzine HCl 10 mg tablet 10 mg PO BEDTIME buspirone 5 mg tablet 5 mg PO BID atomoxetine [Strattera] 40 mg capsule 40 mg PO QAM Qty: 60 0RF Rx Instructions: After 3 days if ineffective and no side effects may increase to 2 caps daily ashwaganda PO DAILY Rx Instructions: 1 tab by mouth daily vitamin B complex Tablet 1 tab PO DAILY Shilpi Cesar Cordon PO DAILY Pravin Reed Fe Lilian PO DAILY PNV cmb#95-ferrous fumarate-FA [] 28 mg iron- 800 mcg Tablet 1 tab PO DAILY prednisone 20 mg tablet 40 mg PO DAILY Qty: 10 0RF Referrals: Miscellaneous,DoctorMD [Primary Care Provider] - Stand Alone Forms: Patient Portal/API, Work Release Note ED Sign-out <Marialuisa Tong MD - Last Filed: 01/04/24 20:59> Cosign ED Attending Cosignature Attestation: I was immediately available in the department for consultation throughout this patient's visit. Marialuisa Tong MD
[2024-01-04] MEDS: ACETAMINOPHEN 325 MG TABLET 650 MG PO (15:03)
--- NOTE | 2024-01-04 15:46 | DI.RAD.S_ITS ---
PROCEDURE: XR CHEST 2V INDICATIONS: Fatigue, cough, shortness of breath TECHNIQUE: 2 views of the chest were acquired. COMPARISON: None. FINDINGS: Surgical changes and devices: None. Lungs and pleura: Lungs are clear. No pleural effusions or pneumothorax. Mediastinum: Mediastinal contours are normal. Heart size is normal. Bones and chest wall: No suspicious bony abnormalities. Soft tissues appear unremarkable. IMPRESSION: No focal infiltrates are seen. No acute cardiopulmonary abnormality is seen. Dictated by: Stefan Jeff M.D. on 01/04/2024 at 15:26 Approved by: Stefan Jeff M.D. on 01/04/2024 at 15:26
[2024-01-04] MEDS: diphenhydrAMINE 25 MG TABLET PO (15:47)
[2024-01-04 15:55] LABS: Adenovirus Not Detected (Not Detect); B. parapertussis Not Detected (Not Detecte); Bordetella pertussis Not Detected (Not Detect); Chlamydophila pneumoniae Not Detected (Not Detect); Coronavirus 229E Not Detected (Not Detect); Coronavirus HKU1 Not Detected (Not Detect); Coronavirus NL 63 Not Detected (Not Detect); Coronavirus OC43 Not Detected (Not Detect); Human Metapneumovirus Not Detected (Not Detect); Human Rhinovirus/Enterovirus Not Detected (Not Detect); Influenza A Not Detected (Not Detect); Influenza B Not Detected (Not Detect); Mycoplasma pneumoniae Not Detected (Not Detect); Parainfluenza Virus 1 Not Detected (Not Detect); Parainfluenza Virus 2 Not Detected (Not Detect); Parainfluenza Virus 3 Not Detected (Not Detect); Parainfluenza Virus 4 Not Detected (Not Detect); Respiratory Syncytial Virus Not Detected (Not Detect); SARS- CoV-2 Not Detected (Not Detecte)
[2024-01-04 16:10] VITALS: BP 111/72; BP 112/60; BP 113/66; PULSE 80; PULSE 85; PULSE 95
[2024-01-04] MEDS: SODIUM CHLORIDE 0.9% 500 ML 1000 ML IV (16:33)
--- NOTE | 2024-01-04 16:36 | PC.NURSE ---
patient no longer itchy
[2024-01-04 16:44] LABS: Strep Grp A by PCR Rapid Positive (Negative)
[2024-01-04 16:58] VITALS: BP 112/66; PULSE 85; RESP 16; TEMP 36.8; O2SAT 99
== END 2024-01-04 17:01 | disposition home or self-care (01) ==
PROVIDERS: Emergency Provider Physician Assistant
DX: J02.0 Streptococcal pharyngitis (principal); R53.83 Other fatigue; R21 Rash and other nonspecific skin eruption; R51.9 Headache, unspecified; T50.Z95A Adverse effect of other vaccines and biological substances, initial encounter; R06.02 Shortness of breath; Z11.52 Encounter for screening for COVID-19
CPT/HCPCS: 36415; 71046; 87633; 87651; 99284

== ENCOUNTER 2024-02-05 08:16 | Emergency (ER) | payer OTHER, MEDICAID, SELFPAY ==
[2024-02-05 08:23] VITALS: PULSE 76; O2SAT 100
[2024-02-05 08:30] VITALS: BP 120/72; PULSE 75; O2SAT 99
--- NOTE | 2024-02-05 08:32 | ED.URI ---
HPI - URI/Sore Throat General Chief Complaint: Upper Respiratory Symptoms Stated Complaint: Wants a throat Swab for Strep Time Seen by Provider: 02/05/24 08:21 History of Present Illness HPI Narrative: 38-year-old female with sore throat and cough, would like screening, has immunocompromised mother wants screening for strep throat and COVID. She had sore throat strep infection December 2023, since then still feels that she has residual sore throat problems, some recent laryngitis, recent dry cough. No shortness of breath or chest pain. Requests testing. Related Data Home Medications Medication Instructions Recorded Confirmed vit no.95-ferrous 1 tab PO DAILY 01/15/18 07/01/22 fumarate 28 mg-folic acid 800 mcg tablet () Pravin Quintana PO DAILY 02/13/22 07/01/22 Shilpi Cordon PO DAILY 02/13/22 07/01/22 ashwaganda PO DAILY 02/13/22 07/01/22 vitamin B complex 1 tab PO DAILY 02/13/22 07/01/22 buspirone 5 mg tablet 5 mg PO BID 06/10/22 07/01/22 hydroxyzine HCl 10 mg tablet 10 mg PO BEDTIME 06/28/22 07/01/22 Previous Rx's Medication Instructions Recorded atomoxetine 40 mg capsule 40 mg PO QAM #60 caps 07/01/22 (Strattera) prednisone 20 mg tablet 40 mg (2 x 20 mg) PO DAILY #10 tabs 09/29/22 clindamycin HCl 300 mg capsule 300 mg PO TID #30 caps 01/04/24 ondansetron HCl 4 mg tablet 4 mg PO Q6-8H PRN nausea and 01/04/24 vomiting #14 tabs cephalexin 500 mg capsule 500 mg PO QID 9 days #36 caps 02/05/24 Allergies Allergy/AdvReac Type Severity Reaction Status Date / Time clindamycin Allergy Intermediate Rash Verified 02/05/24 09:38 Penicillins Allergy Intermediate Rash Verified 07/01/22 08:02 Sulfa (Sulfonamide Allergy Intermediate Rash Verified 07/01/22 08:02 Antibiotics) Review of Systems Review of Systems Narrative: see HPI Patient History Medical History ADHD, predominantly inattentive type Depression Anxiety (~2004) Chicken pox Endometriosis (~2002) Abnormal Pap smear of cervix (~2012) History of blood transfusion Ovarian cyst IBS (irritable bowel syndrome) Surgical History Anesthesia [place] teeth removed (~2004) History of endoscopy (~2012) History of colonoscopy (~2012) History of laparoscopy (~09/24/21) Family History Sister PCOS (polycystic ovarian syndrome) Family/Other Endometriosis Mother Thyroid disease Danielito's disease Fibromyalgia POTS (postural orthostatic tachycardia syndrome) Social History household members: spouse Smoking Status: Former smoker alcohol intake: current Smoking Status: Former smoker alcohol intake frequency: holidays/special occasions only Substance Use Type: does not use Exam Narrative Exam Narrative: GENERAL: Well-developed patient, in mild distress. HEAD: Atraumatic. Normocephalic. EYES: Pupils equal round and reactive. Extraocular motions intact. No scleral icterus. No injection or drainage. ENT: Nose without bleeding, purulent drainage. Throat without erythema, tonsillar hypertrophy or exudate. Airway patent. NECK: Trachea midline. Non tender CARDIOVASCULAR: Regular rate and rhythm without murmurs, gallops, or rubs. RESPIRATORY: Clear to auscultation. Breath sounds equal bilaterally. No wheezes, rales, or rhonchi. GASTROINTESTINAL: Abdomen soft, non-tender, nondistended. EXTREMITIES: No edema or joint tenderness. BACK: Nontender without deformity or crepitance. No flank tenderness. NEURO: AOx3. Motor functions grossly nonfocal SKIN: No rash or erythema of visible areas Initial Vital Signs Initial Vital Signs: Vital Signs Pulse Rate 76 02/05/24 08:23 Pulse Oximetry 100 02/05/24 08:23 Course Orders Ordered: Discontinued Medications Cefazolin Sodium (Cephalexin 250 Mg Cap Prepack) 1 bottle MISC DIRECTED ONE Stop: 02/05/24 09:47 Last Admin: 02/05/24 09:55 Dose: 500 tab Documented By: DISHA Cephalexin HCl (Cephalexin 250 Mg Capsule) 500 mg PO NOW ONE Stop: 02/05/24 09:43 Last Admin: 02/05/24 09:55 Dose: 500 mg Documented By: DISHA Vital Signs Vital signs: Vital Signs - 8 hr 02/05/24 10:39 Pulse Rate 70 Respiratory Rate 18 Pulse Oximetry 97 Oxygen Delivery Method Room Air MDM - URI/Sore Throat Lab Data Labs: Lab Results 02/05/24 02/05/24 Range/Units 08:28 08:29 Chlamy pneumoniae PCR Not detected (Not Detect) Adenovirus (PCR) Not detected (Not Detect) B. pertussis DNA (PCR) Not detected (Not Detect) B.parapertussis DNA PCR Not detected (Not Detecte) Coronavirus OC43 (PCR) Not detected (Not Detect) Coronavirus HKU1 (PCR) Not detected (Not Detect) Coronavirus 229E (PCR) Not detected (Not Detect) SARS-CoV-2 (PCR) Not detected (Not Detecte) Coronavirus NL63 (PCR) Not detected (Not Detect) Human Metapneumovir PCR Not detected (Not Detect) Influenza Type A (PCR) Not detected (Not Detect) Influenza Type B (PCR) Not detected (Not Detect) M. pneumoniae (PCR) Not detected (Not Detect) Parainfluenza 1 (PCR) Not detected (Not Detect) Parainfluenza 2 (PCR) Not detected (Not Detect) Parainfluenza 3 (PCR) Not detected (Not Detect) Parainfluenza 4 (PCR) Not detected (Not Detect) RSV (PCR) Not detected (Not Detect) Entero/Rhino (PCR) Detected H (Not Detect) Group A Strep (PCR) Positive H (Negative) MDM Narrative Medical decision making narrative: 38-year-old female with sore throat and dry cough, requests testing to screen for strep throat and COVID. Afebrile, sirs screen negative. Oropharyngeal exam unremarkable. Strep screen and COVID/RSV/flu swab sent from triage. Results pending at this time. No oxygen requirement, no respiratory distress, reassuring examination. Strep A positive, patient would like treatment. History of allergies to penicillin, macrolides, intolerance to clindamycin. However she has had Keflex before without problems. We will give oral Keflex 1st dose now, then prescription for Keflex antibiotic course. Respiratory swab positive for rhino virus, patient informed, other pathogens negative on panel. We discussed viral illness, symptomatic treatment, no antiviral for this infection. Discharged home, advised to take [id number] Tylenol and or Motrin as needed for discomfort. Take course of antibiotics. Return precautions discussed Discharge Plan Departure Patient Disposition: Home Clinical Impression: Acute upper respiratory infection, Strep pharyngitis, Rhinovirus infection Activity Restrictions/Additional Instructions: Recent cough and sore throat symptoms, concern for possible strep infection. Rapid strep screen was positive. History of drug allergies to penicillin and azithromycin and clindamycin noted, however you have had cephalexin antibiotic successfully in the past without too much trouble. First dose cephalexin given in the emergency department, prescription for further course cephalexin sent to your pharmacy. Respiratory panel was positive for rhinovirus, other pathogens tested negative, this is a self-limited infection, no specific antiviral therapy for this particular virus. Take Tylenol and or Motrin as needed for discomfort symptoms. Recheck symptoms with your regular doctor not improving in the next few days. Return to this/nearest emergency department for any change worsening symptoms or any concerns prior Prescriptions: New cephalexin 500 mg capsule 500 mg PO QID 9 Days Qty: 36 0RF No Action hydroxyzine HCl 10 mg tablet 10 mg PO BEDTIME buspirone 5 mg tablet 5 mg PO BID atomoxetine [Strattera] 40 mg capsule 40 mg PO QAM Qty: 60 0RF Rx Instructions: After 3 days if ineffective and no side effects may increase to 2 caps daily ashwaganda PO DAILY Rx Instructions: 1 tab by mouth daily vitamin B complex Tablet 1 tab PO DAILY Shilpi Cesar Cordon PO DAILY Pravin Reed Fe Lilian PO DAILY PNV cmb#95-ferrous fumarate-FA [] 28 mg iron- 800 mcg Tablet 1 tab PO DAILY prednisone 20 mg tablet 40 mg PO DAILY Qty: 10 0RF clindamycin HCl 300 mg capsule 300 mg PO TID Qty: 30 0RF ondansetron HCl 4 mg tablet 4 mg PO Q6-8H PRN (Reason: nausea and vomiting) Qty: 14 0RF Referrals: Zuri Hicks ND [Primary Care Provider] - Stand Alone Forms: Patient Portal/API/Survey
[2024-02-05 08:37] VITALS: BP 113/71; PULSE 74; RESP 18; TEMP 37.2; O2SAT 99; BMI 21.2
[2024-02-05 09:17] LABS: Strep Grp A by PCR Rapid Positive (Negative)
[2024-02-05] MEDS: cephALEXin 250 MG CAPSULE 500 MG PO (09:55)
[2024-02-05] MEDS: cephALEXin 250 MG CAP PREPACK 1 BOTTLE MISC (09:55)
[2024-02-05 10:29] LABS: Adenovirus Not Detected (Not Detect); B. parapertussis Not Detected (Not Detecte); Bordetella pertussis Not Detected (Not Detect); Chlamydophila pneumoniae Not Detected (Not Detect); Coronavirus 229E Not Detected (Not Detect); Coronavirus HKU1 Not Detected (Not Detect); Coronavirus NL 63 Not Detected (Not Detect); Coronavirus OC43 Not Detected (Not Detect); Human Metapneumovirus Not Detected (Not Detect); Human Rhinovirus/Enterovirus Detected (Not Detect); Influenza A Not Detected (Not Detect); Influenza B Not Detected (Not Detect); Mycoplasma pneumoniae Not Detected (Not Detect); Parainfluenza Virus 1 Not Detected (Not Detect); Parainfluenza Virus 2 Not Detected (Not Detect); Parainfluenza Virus 3 Not Detected (Not Detect); Parainfluenza Virus 4 Not Detected (Not Detect); Respiratory Syncytial Virus Not Detected (Not Detect); SARS- CoV-2 Not Detected (Not Detecte)
[2024-02-05 10:39] VITALS: PULSE 70; RESP 18; O2SAT 97
--- NOTE | 2024-02-13 09:39 | PC.NURSE ---
Pt states she washed her prescription for keflex in the washing machine. She endorses not sure if im taking them correctly as I have 19 left and the pharmacist told me it should be almost completed. Consulted with Dr. Matthew who provides verbal order for 500mg keflex QID 20qty for 5 day supply. I talked to Maritza and pharmacist Kev (adrian elmore) at [facility] in [place]. I did provide education to pt regarding antibiotic usage and concerns regarding not taking as prescribed. Pt expressed verbal understanding.
== END 2024-02-05 10:39 | disposition home or self-care (01) ==
PROVIDERS: Emergency Provider Emergency Medicine; PCP Naturopath
DX: J02.0 Streptococcal pharyngitis (principal); B34.8 Other viral infections of unspecified site; Z87.891 Personal history of nicotine dependence; Z11.52 Encounter for screening for COVID-19
CPT/HCPCS: 87070; 87633; 87651; 99283

== ENCOUNTER → 2024-03-23 08:12 | Outpatient (CLI) | payer OTHER, SELFPAY ==
[2024-03-23 09:02] LABS: COVID-19 CEPHEID 4-PLEX PCR Negative (Negative); Influenza A - CEPHEID Flu A NEGATIVE (NEGATIVE); Influenza B - CEPHEID Flu B NEGATIVE (NEGATIVE); Respiratory Syncytial Virus Negative (Negative)
== END ==
PROVIDERS: PCP Naturopath; Visit Provider Nurse Practitioner Family
DX: R05.1 Acute cough (principal)
CPT/HCPCS: 87635; 87400 ×2; 87420; 0241U; 87070; 87880

== ENCOUNTER 2024-04-19 09:41 | Emergency (ER) | payer OTHER, SELFPAY ==
[2024-04-19 09:44] VITALS: BP 125/66; PULSE 86; RESP 18; TEMP 36.9; O2SAT 98; BMI 22.0
[2024-04-19] MEDS: ONDANSETRON 4 MG ODT SL (09:54)
[2024-04-19 10:35] LABS: COVID-19 CEPHEID 4-PLEX PCR Negative (Negative); Influenza A - CEPHEID Flu A POSITIVE (NEGATIVE); Influenza B - CEPHEID Flu B NEGATIVE (NEGATIVE); Respiratory Syncytial Virus Negative (Negative)
--- NOTE | 2024-04-19 12:22 | ED.URI ---
HPI - URI/Sore Throat <Suad Escalante PA-C - Last Filed: 04/19/24 12:26> General Chief Complaint: Upper Respiratory Symptoms Stated Complaint: Fighting the flu Time Seen by Provider: 04/19/24 11:28 History of Present Illness HPI Narrative: 39-year-old female presents to the ED with 4 days of cough, body aches, nausea, vomiting. 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 Patient endorses subjective fevers, body aches, cough, congestion, nausea, vomiting. Denies chest pain, shortness of breath, abdominal pain. Related Data Home Medications Medication Instructions Recorded Confirmed vit no.95-ferrous 1 tab PO DAILY 01/15/18 07/01/22 fumarate 28 mg-folic acid 800 mcg tablet () Pravin Quintana PO DAILY 02/13/22 07/01/22 Shilpi Cordon PO DAILY 02/13/22 07/01/22 ashwaganda PO DAILY 02/13/22 07/01/22 vitamin B complex 1 tab PO DAILY 02/13/22 07/01/22 buspirone 5 mg tablet 5 mg PO BID 06/10/22 07/01/22 hydroxyzine HCl 10 mg tablet 10 mg PO BEDTIME 06/28/22 07/01/22 ibuprofen 800 mg tablet 800 mg PO 3XD 03/23/24 03/23/24 methylphenidate HCl 36 mg 36 mg PO DAILY 03/23/24 03/23/24 tablet,extended release 24 hr norethindrone acetate 5 mg tablet 5 mg PO DAILY 03/23/24 03/23/24 Previous Rx's Medication Instructions Recorded atomoxetine 40 mg capsule 40 mg PO QAM #60 caps 07/01/22 (Strattera) prednisone 20 mg tablet 40 mg (2 x 20 mg) PO DAILY #10 tabs 09/29/22 clindamycin HCl 300 mg capsule 300 mg PO TID #30 caps 01/04/24 ondansetron HCl 4 mg tablet 4 mg PO Q6-8H PRN nausea and 01/04/24 vomiting #14 tabs ondansetron 4 mg disintegrating 4 mg PO Q8H PRN nausea and 04/19/24 tablet vomiting #14 tabs Allergies Allergy/AdvReac Type Severity Reaction Status Date / Time clindamycin Allergy Intermediate Rash Verified 02/05/24 09:38 Penicillins Allergy Intermediate Rash Verified 07/01/22 08:02 Sulfa (Sulfonamide Allergy Intermediate Rash Verified 07/01/22 08:02 Antibiotics) Review of Systems <Suad Escalante PA-C - Last Filed: 04/19/24 12:26> Constitutional Constitutional: Reports body ache(s), Denies chills, Denies fatigue, Reports fever(s), Denies frequent falls, Reports lethargy and Denies weakness Eyes Eyes: Denies change in vision, Denies eye discharge, Denies irritation and Denies loss of vision ENT Ears, Nose, Mouth, and Throat: Denies change in voice, Denies dizziness, Denies neck pain, Denies sore throat and Denies throat swelling Cardiovascular Cardiovascular: Denies chest pain, Denies irregular heart rhythm, Denies lightheadedness, Denies palpitations, Denies dyspnea, Denies dyspnea on exertion and Denies orthopnea Respiratory Respiratory: Reports chest congestion, Reports cough, Denies dyspnea, Denies dyspnea on exertion and Denies wheezing Gastrointestinal Gastrointestinal: Denies abdominal pain, Denies change in bowel habits, Denies diarrhea, Reports nausea and Reports vomiting Musculoskeletal Musculoskeletal: Denies neck pain and Denies numbness Integumentary/Breasts Skin/Breast: Denies pruritus, Denies erythema, Denies rash and Denies wounds Neurologic Neurologic: Denies behavioral changes, Denies confusion, Denies dizziness, Denies frequent falls, Denies loss of vision, Denies numbness and Denies weakness Psychiatric Psychiatric: Denies anxiety, Denies behavioral changes, Denies confusion, Denies depression, Denies homicidal ideation and Denies suicidal ideation Endocrine Endocrine: Denies fatigue, Denies flushing and Denies palpitations Hematologic/Lymphatic Hematologic/Lymphatic: Denies easy bruising Allergic/Immunologic Allergic/Immunologic: Denies urticaria, Denies throat swelling and Denies wheezing Patient History <Suad Escalante PA-C - Last Filed: 04/19/24 12:26> Medical History ADHD, predominantly inattentive type Depression Anxiety (~2004) Chicken pox Endometriosis (~2002) Abnormal Pap smear of cervix (~2012) History of blood transfusion Ovarian cyst IBS (irritable bowel syndrome) Surgical History Anesthesia [place] teeth removed (~2004) History of endoscopy (~2012) History of colonoscopy (~2012) History of laparoscopy (~09/24/21) Family History Sister PCOS (polycystic ovarian syndrome) Family/Other Endometriosis Mother Thyroid disease Danielito's disease Fibromyalgia POTS (postural orthostatic tachycardia syndrome) Social History household members: spouse Smoking Status: Former smoker alcohol intake: current Smoking Status: Former smoker alcohol intake frequency: holidays/special occasions only Exam <Suad Escalante PA-C - Last Filed: 04/19/24 12:26> Narrative Exam Narrative: Const General:?cooperative, healthy appearing and comfortable HENDE Head:?normal to inspection Ears:?hearing grossly normal bilaterally Nose:?external nose normal Face and sinus:?normal facial exam and sinuses nontender Mouth:?oral mucosae normal Throat:?posterior oropharynx normal Eyes General:?appearance normal, both eyes and all related structures Neck Neck:?normal visual inspection and no lymphadenopathy noted Resp Effort & Inspection:?normal respiratory effort Auscultation:?clear to auscultation bilaterally Cardio Rate:?regular rate Rhythm:?regular rhythm Neuro General:?patient alert, patient awake and patient oriented x3 Initial Vital Signs Initial Vital Signs: Vital Signs Temperature 98.4 F 04/19/24 09:44 Pulse Rate 86 04/19/24 09:44 Respiratory Rate 18 04/19/24 09:44 Blood Pressure 125/66 04/19/24 09:44 Pulse Oximetry 98 04/19/24 09:44 Oxygen Delivery Method Room Air 04/19/24 09:44 <Richard Osborn MD - Last Filed: 04/19/24 21:47> Initial Vital Signs Initial Vital Signs: Vital Signs Temperature 98.4 F 04/19/24 09:44 Pulse Rate 86 04/19/24 09:44 Respiratory Rate 18 04/19/24 09:44 Blood Pressure 125/66 04/19/24 09:44 Pulse Oximetry 98 04/19/24 09:44 Oxygen Delivery Method Room Air 04/19/24 09:44 Course <Suad Escalante PA-C - Last Filed: 04/19/24 12:26> Orders Ordered: Discontinued Medications Ondansetron HCl (Ondansetron 4 Mg/2 Ml Inj) 4 mg IV NOW PRN PRN Reason: Nausea And Vomiting Ondansetron HCl (Ondansetron 4 Mg Odt) 4 mg SL NOW PRN PRN Reason: Nausea And Vomiting Last Admin: 04/19/24 09:54 Dose: 4 mg Documented By: JESSICA Vital Signs Vital signs: Vital Signs - 8 hr 04/19/24 09:44 Temperature 98.4 F Pulse Rate 86 Respiratory Rate 18 Blood Pressure 125/66 Pulse Oximetry 98 Oxygen Delivery Method Room Air <Richard Osborn MD - Last Filed: 04/19/24 21:47> Orders Ordered: Discontinued Medications Ondansetron HCl (Ondansetron 4 Mg/2 Ml Inj) 4 mg IV NOW PRN PRN Reason: Nausea And Vomiting Ondansetron HCl (Ondansetron 4 Mg Odt) 4 mg SL NOW PRN PRN Reason: Nausea And Vomiting Last Admin: 04/19/24 09:54 Dose: 4 mg Documented By: JESSICA Vital Signs Vital signs: Vital Signs - 8 hr 04/19/24 09:44 Temperature 98.4 F Pulse Rate 86 Respiratory Rate 18 Blood Pressure 125/66 Pulse Oximetry 98 Oxygen Delivery Method Room Air MDM - URI/Sore Throat <Suad Escalante PA-C - Last Filed: 04/19/24 12:26> Lab Data Labs: Lab Results 04/19/24 Range/Units 09:50 SARS-CoV-2 (PCR) Negative (Negative) Influenza A (RT-PCR) Flu a positive H (NEGATIVE) Influenza B (RT-PCR) Flu b negative (NEGATIVE) RSV (PCR) Negative (Negative) MDM Narrative Medical decision making narrative: 39-year-old female presents to the ED with 4 days of cough, body aches, nausea, vomiting. Respiratory panel is positive for influenza A. Patient given Zofran for nausea. Prescribed Zofran to continue as needed. Supportive care discussed with patient. Recommend follow-up with PCP as soon as possible. ED return precautions discussed with patient. Patient verbalized understanding. Medical records reviewed: Yes <Richard Osborn MD - Last Filed: 04/19/24 21:47> Lab Data Labs: Lab Results 04/19/24 Range/Units 09:50 SARS-CoV-2 (PCR) Negative (Negative) Influenza A (RT-PCR) Flu a positive H (NEGATIVE) Influenza B (RT-PCR) Flu b negative (NEGATIVE) RSV (PCR) Negative (Negative) Discharge Plan Departure Patient Disposition: Home Clinical Impression: Influenza A Instructions: DI for Influenza -- Adult Activity Restrictions/Additional Instructions: You were evaluated in the ED today for a cough, vomiting. You tested positive for influenza A. You are being prescribed Zofran for nausea. Please ensure good hydration and rest. Please follow-up with your PCP as soon as possible. Return to the ED if you have worsening symptoms, chest pain, shortness of breath. Prescriptions: New ondansetron 4 mg tablet,disintegrating 4 mg PO Q8H PRN (Reason: nausea and vomiting) Qty: 14 0RF No Action ibuprofen 800 mg tablet 800 mg PO 3XD methylphenidate HCl 36 mg tablet extended release 24hr 36 mg PO DAILY norethindrone acetate 5 mg tablet 5 mg PO DAILY hydroxyzine HCl 10 mg tablet 10 mg PO BEDTIME buspirone 5 mg tablet 5 mg PO BID atomoxetine [Strattera] 40 mg capsule 40 mg PO QAM Qty: 60 0RF Rx Instructions: After 3 days if ineffective and no side effects may increase to 2 caps daily ashwaganda PO DAILY Rx Instructions: 1 tab by mouth daily vitamin B complex Tablet 1 tab PO DAILY Shilpi Cesar Cordon PO DAILY Pravin Reed Fe Lilian PO DAILY PNV cmb#95-ferrous fumarate-FA [] 28 mg iron- 800 mcg Tablet 1 tab PO DAILY prednisone 20 mg tablet 40 mg PO DAILY Qty: 10 0RF clindamycin HCl 300 mg capsule 300 mg PO TID Qty: 30 0RF ondansetron HCl 4 mg tablet 4 mg PO Q6-8H PRN (Reason: nausea and vomiting) Qty: 14 0RF Referrals: Zuri Hicks ND [Primary Care Provider] - Stand Alone Forms: Patient Portal/API/Survey ED Sign-out <Richard Osborn MD - Last Filed: 04/19/24 21:47> Cosign ED Attending Bernarda Attestation: I was immediately available in the department for consultation. This documentation has been reviewed and I agree with assessment and plan. Supervised by Richard Osborn MD
[2024-04-19 12:30] VITALS: BP 106/67; PULSE 75; RESP 18; O2SAT 98
== END 2024-04-19 12:33 | disposition home or self-care (01) ==
PROVIDERS: Emergency Medicine; Emergency Provider Student in an Organized Health Care Education/Training Program; PCP Naturopath
DX: J10.1 Influenza due to other identified influenza virus with other respiratory manifestations (principal); Z87.891 Personal history of nicotine dependence; Z88.0 Allergy status to penicillin; Z88.2 Allergy status to sulfonamides
CPT/HCPCS: 87635; 87400 ×2; 87420; 0241U; 99283

== ENCOUNTER 2024-08-17 10:33 | Emergency (ER) | payer OTHER, SELFPAY ==
[2024-08-17] VITALS (9 sets, daily range): BP systolic 99–122; BP diastolic 53–77; PULSE 61–79; RESP 16; TEMP 37.1; O2SAT 98–100; BMI 24.5
--- NOTE | 2024-08-17 10:57 | ED.ABDPAIN ---
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 Patient has history of IBS. Complaints a few days of generalized abdominal pain. Does not radiate. Has had rectal mucus discharge. No rectal bleeding. Patient has had colonoscopies in the past. Is supposed to have another 1 this year. Patient being followed by OBGYN for control pills that she just restarted. Patient does not have gastroenterology services but is seen by primary care for IBS. Patient does not want any narcotics other than tramadol. It usually causes constipation but tramadol does not. Patient in no distress at this time. Related Data Home Medications ?Medication ?Instructions ?Recorded ?Confirmed vit no.95-ferrous 1 tab PO DAILY 01/15/18 07/01/22 fumarate 28 mg-folic acid 800 mcg tablet () Pravin Quintana PO DAILY 02/13/22 07/01/22 Shilpi Cesarchristi Cordon PO DAILY 02/13/22 07/01/22 ashwaganda PO DAILY 02/13/22 07/01/22 vitamin B complex 1 tab PO DAILY 02/13/22 07/01/22 buspirone 5 mg tablet 5 mg PO BID 06/10/22 07/01/22 hydroxyzine HCl 10 mg tablet 10 mg PO BEDTIME 06/28/22 07/01/22 ibuprofen 800 mg tablet 800 mg PO 3XD 03/23/24 03/23/24 methylphenidate HCl 36 mg 36 mg PO DAILY 03/23/24 03/23/24 tablet,extended release 24 hr norethindrone acetate 5 mg tablet 5 mg PO DAILY 03/23/24 03/23/24 Previous Rx's ?Medication ?Instructions ?Recorded atomoxetine 40 mg capsule 40 mg PO QAM #60 caps 07/01/22 (Strattera) prednisone 20 mg tablet 40 mg (2 x 20 mg) PO DAILY #10 tabs 09/29/22 clindamycin HCl 300 mg capsule 300 mg PO TID #30 caps 01/04/24 ondansetron HCl 4 mg tablet 4 mg PO Q6-8H PRN nausea and 01/04/24 vomiting #14 tabs ondansetron 4 mg disintegrating 4 mg PO Q8H PRN nausea and 04/19/24 tablet vomiting #14 tabs tramadol 50 mg tablet 50 mg PO Q8H PRN pain #12 tabs 08/17/24 Allergies Allergy/AdvReac Type Severity Reaction Status Date / Time clindamycin Allergy Intermediate Rash Verified 02/05/24 09:38 Penicillins Allergy Intermediate Rash Verified 07/01/22 08:02 Sulfa (Sulfonamide Allergy Intermediate Rash Verified 07/01/22 08:02 Antibiotics) Review of Systems Review of Systems Narrative: GENERAL: Negative chills, fatigue, malaise, fever, sweats. HEENT: Negative sinus pain, ear pain, sore throat RESPIRATORY: Negative dyspnea, cough CARDIOVASCULAR: Negative chest pain, palpitations GASTROINTESTINAL: Negative vomiting, positive nausea, abdominal pain : Negative dysuria, frequency, hematuria MUSCULOSKELETAL: Negative muscle or bony pain SKIN: Negative rash, skin lesions NEUROLOGIC: Negative weakness, numbness ROS Unobtainable: All systems reviewed & are unremarkable except as noted in HPI and below Patient History Medical History ADHD, predominantly inattentive type Depression Anxiety (~2004) Chicken pox Endometriosis (~2002) Abnormal Pap smear of cervix (~2012) History of blood transfusion Ovarian cyst IBS (irritable bowel syndrome) Surgical History Anesthesia [place] teeth removed (~2004) History of endoscopy (~2012) History of colonoscopy (~2012) History of laparoscopy (~09/24/21) Family History Sister PCOS (polycystic ovarian syndrome) Family/Other Endometriosis Mother Thyroid disease Danielito's disease Fibromyalgia POTS (postural orthostatic tachycardia syndrome) Social History household members: spouse alcohol intake: current alcohol intake frequency: holidays/special occasions only Exam Narrative Exam Narrative: GENERAL: in no distress, not toxic not dyspneic HEAD: Normocephalic. EYES: Pupils equal round ENT: Mucous membranes moist. NECK: Trachea midline. CARDIOVASCULAR: Regular rate and rhythm RESPIRATORY: Clear to auscultation. Breath sounds equal bilaterally. No wheezes, rales, or rhonchi. GASTROINTESTINAL: Abdomen soft, there is mild diffuse tenderness. No peritoneal signs no guarding no rebound. No pain out of portion exam. Bowel sounds are present. No CVA tenderness. EXTREMITIES: No gross deformities. BACK: No flank tenderness. NEURO: AOx4. Clear speech SKIN: Warm and dry PSYCH: Not anxious, is cooperative Initial Vital Signs Initial Vital Signs: Vital Signs Temperature 98.7 F 08/17/24 10:38 Pulse Rate 74 08/17/24 10:38 Respiratory Rate 16 08/17/24 10:38 Blood Pressure 121/76 08/17/24 10:38 Pulse Oximetry 100 08/17/24 10:38 Oxygen Delivery Method Room Air 08/17/24 10:38 Course Orders Ordered: Discontinued Medications Sodium Chloride (Normal Saline 0.9%) 1,000 mls @ 1,000 mls/hr IV BOLUS ONE Stop: 08/17/24 11:55 Last Admin: 08/17/24 11:12 Dose: 1,000 mls/hr Documented By: ARTI Ketorolac Tromethamine (Ketorolac 30 Mg/Ml Vial) 15 mg IV NOW ONE Stop: 08/17/24 10:57 Last Admin: 08/17/24 11:12 Dose: 15 mg Documented By: ES Ondansetron HCl (Ondansetron 4 Mg/2 Ml Inj) 4 mg IV NOW PRN PRN Reason: Nausea And Vomiting Last Admin: 08/17/24 11:12 Dose: 4 mg Documented By: ARTI Ondansetron HCl (Ondansetron 4 Mg Odt) 4 mg PO NOW PRN PRN Reason: Nausea And Vomiting Tramadol HCl (Tramadol 50 Mg Tablet) 50 mg PO NOW ONE Stop: 08/17/24 11:41 Last Admin: 08/17/24 11:45 Dose: 50 mg Documented By: ARTI Vital Signs Vital signs: Vital Signs - 8 hr 08/17/24 10:38 08/17/24 10:49 08/17/24 10:50 Temperature 98.7 F Pulse Rate 74 73 Respiratory Rate 16 Blood Pressure 121/76 120/67 Pulse Oximetry 100 99 Oxygen Delivery Method Room Air 08/17/24 10:50 Temperature Pulse Rate 79 Respiratory Rate Blood Pressure Pulse Oximetry 98 Oxygen Delivery Method MDM - Abdominal Pain Lab Data 08/17/24 11:02 08/17/24 11:02 Labs: Lab Results 08/17/24 08/17/24 Range/Units 10:50 11:02 WBC 7.5 (4.5-11.0) X10^3/uL RBC 4.52 (4.0-5.2) X10^6/uL Hgb 13.7 (12.0-16.0) g/dL Hct 39.1 (36-46) % MCV 86.5 (80-100) fL MCH 30.2 (26-34) PG MCHC 34.9 (30-36) % RDW 12.6 (11.6-14.8) % Plt Count 205 (150-400) X10^3/uL Neut % (Auto) 69.2 (50-75) % Lymph % (Auto) 25.3 (25-40) % [place] % (Auto) 4.5 (3-14) % Eos % (Auto) 0.4 L (2-4) % Baso % (Auto) 0.6 (0-2) % Neut # (Auto) 5200 (1946-9944) /uL Lymph # (Auto) 1900 (2753-9671) /uL [place] # (Auto) 300 (0-900) /uL Eos # (Auto) 0 (0-450) /uL Baso # (Auto) 0 (0-100) /uL Sodium 138 (137-145) mmol/L Potassium 4.0 (3.4-5.1) mmol/L Chloride 106 (98-107) mmol/L Carbon Dioxide 24 (22-32) mmol/L BUN 5 L (7-17) mg/dL Creatinine 0.61 (0.52-1.04) mg/dL Estimated GFR > 60 (>60) mL/min BUN/Creatinine Ratio 8.2 (6-22) Glucose 86 (70-99) mg/dL Calcium 9.0 (8.4-10.2) mg/dL Total Bilirubin 0.7 (0.2-1.3) mg/dL AST 23 (14-36) IU/L ALT 16 (<35) IU/L Alkaline Phosphatase 42 (38-126) U/L Total Protein 7.2 (6.3-8.2) g/dL Albumin 4.5 (3.5-5.0) g/dL Globulin 2.7 (1.7-4.1) g/dL Albumin/Globulin Ratio 1.7 (1.0-2.8) Lipase 62 (23-300) U/L Serum , Qual Negative (Negative) Urine Color Yellow Urine Appearance Clear Urine pH 6.0 (4.5-8.0) Ur Specific [place] 1.010 (1.000-1.035) Urine Protein Negative (Negative) Urine Glucose (UA) Negative (Negative) g/dL Urine Ketones Negative (NEGATIVE) Urine Occult Blood 2+ H (Negative) Urine Nitrate Negative (Negative) Urine Bilirubin Negative (NEGATIVE) Urine Urobilinogen 0.2 (0.2) E.U./dL Ur Leukocyte Esterase Negative (NEGATIVE) Urine RBC 1-5/hpf D (0-5/HPF) Urine WBC 0-1/hpf (0-5/HPF) Ur Squamous Epith Cells 5-10 /hpf H (0-5/HPF) Urine Bacteria None seen (None) Ur Culture Indicated? Cult not indicated Vol Urine Centrifuged 10ml (spun) Imaging Data CT scan - abdomen/pelvis: Radiologist's Impression: [place] [address] CT Scan Report Signed Patient: Vanna Eli MR#: [id number] : 1985 Acct:[id number] Age/Sex: 39 / F Date of Service: 08/17/24 Loc: ED Accession Number: [id number] Procedure: CT abdomen pelvis w con Ordering Provider: Mauro Rodriguez MD PROCEDURE: CT ABDOMEN PELVIS W CON INDICATIONS: generalized abdominal pain TECHNIQUE: After the administration of intravenous contrast, axial sections acquired from the lung bases to the pubic symphysis. Coronal and sagittal reformats were performed. For radiation dose reduction, the following was used: automated exposure control, adjustment of mA and/or kV according to patient size. COMPARISON: [facility], CT, CT ABDOMEN PELVIS W CON, 10/20/2019, 20:43. FINDINGS: Image quality: Diagnostic. Lower Chest: No significant findings. ABDOMEN: Liver: Slight interval growth of the cyst in segment 8 measuring 6 millimeter, previously 2-3 millimeter. This is still presumably benign. Gallbladder: No radiopaque gallstones or wall thickening. Biliary ducts: No biliary dilation. Pancreas: No ductal dilation. Spleen: Size is within normal limits. Adrenal Glands: No adrenal nodules. Kidneys and Ureters: No hydronephrosis. No solid mass. No complex renal cystic lesion which requires follow up. Stomach and Bowel: Normal colonic caliber, without significant wall thickening. Normal appendix. No significant diverticular disease. Peritoneum: No abnormal intraperitoneal fluid. No free air. Ventral Wall: No significant ventral hernia. Abdominal Nodes: No retroperitoneal or mesenteric adenopathy by size criteria. Vessels: Aorta and inferior vena cava are normal in size. PELVIS: Pelvic Organs: Right-sided corpus luteum. Bladder: No bladder wall thickening, accounting for underdistention. Pelvic Nodes: No enlarged lymph nodes. Miscellaneous: No inguinal hernias are seen. Bones: No aggressive osseous abnormality. IMPRESSION: No acute abnormality to explain the patient's symptoms. Normal appendix. No diverticular disease or colitis. Right-sided corpus luteum. Dictated by: Jose Cash M.D. on 08/17/2024 at 12:23 Approved by: Jose Cash M.D. 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 Patient has history of IBS. Complaints a few days of generalized abdominal pain. Does not radiate. Has had rectal mucus discharge. No rectal bleeding. Patient has had colonoscopies in the past. Is supposed to have another 1 this year. Patient being followed by OBGYN for control pills that she just restarted. Patient does not have gastroenterology services but is seen by primary care for IBS. Patient does not want any narcotics other than tramadol. It usually causes constipation but tramadol does not. Patient in no distress at this time. After history and exam, CBC CMP urinalysis test GI panel CT abdomen pelvis Toradol Zofran normal saline [facility] Medical records reviewed: No recent visit for this complaint Differential considered: Includes but not limited to colitis IBS bowel obstruction UTI dehydration Lab Test results independently reviewed as above. Pertinent findings: WBC 7.5 hemoglobin 13.7 sodium 138 potassium 4.0 glucose 86 AST 23 ALT 16 lipase 62 urinalysis negative ketones negative nitrate negative leukocyte esterase negative Imaging studies independently reviewed: CT abdomen pelvis no acute finding Consultations: None indicated at this time Re-evaluations: 12:55 p.m.. Updated patient, boyfriend at bedside. Boyfriend is driving. A this time laboratory studies exam and imaging studies are reassuring. Short course of tramadol provided. Work note provided. She knows not to drive or work while taking tramadol. They desire discharge home. She states she will discontinue the control pills as she thinks this may causing discomfort. Discussion: Appropriate for discharge home. Exam is reassuring. Return precautions reviewed the pain is controlled. Boyfriend is driving. Work note provided. Short course of tramadol provided for pain. Diagnosis: Recurrent abdominal pain Discharge Plan Departure Patient Disposition: Home Clinical Impression: Abdominal pain Qualifiers: Abdominal location: generalized Qualified Code(s): R10.84 - Generalized abdominal pain Instructions: DI for Abdominal Pain-Adult Activity Restrictions/Additional Instructions: No driving operating machinery today or work when taking prescribed pain medication. Work note has been provided for you. See your family doctor for re-evaluation. Return if worse if any questions or concerns. Today's laboratory studies imaging studies are reassuring. Prescriptions: New tramadol 50 mg tablet 50 mg PO Q8H PRN (Reason: pain) Qty: 12 0RF No Action ibuprofen 800 mg tablet 800 mg PO 3XD methylphenidate HCl 36 mg tablet extended release 24hr 36 mg PO DAILY norethindrone acetate 5 mg tablet 5 mg PO DAILY hydroxyzine HCl 10 mg tablet 10 mg PO BEDTIME buspirone 5 mg tablet 5 mg PO BID atomoxetine [Strattera] 40 mg capsule 40 mg PO QAM Qty: 60 0RF Rx Instructions: After 3 days if ineffective and no side effects may increase to 2 caps daily ashwaganda PO DAILY Rx Instructions: 1 tab by mouth daily vitamin B complex Tablet 1 tab PO DAILY Shilpi Cesar Cordon PO DAILY Pravin Reed Fe Lilian PO DAILY PNV cmb#95-ferrous fumarate-FA [] 28 mg iron- 800 mcg Tablet 1 tab PO DAILY prednisone 20 mg tablet 40 mg PO DAILY Qty: 10 0RF clindamycin HCl 300 mg capsule 300 mg PO TID Qty: 30 0RF ondansetron HCl 4 mg tablet 4 mg PO Q6-8H PRN (Reason: nausea and vomiting) Qty: 14 0RF ondansetron 4 mg tablet,disintegrating 4 mg PO Q8H PRN (Reason: nausea and vomiting) Qty: 14 0RF Referrals: Kurt,Zuri J, ND [Primary Care Provider, Naturopathy] Stand Alone Forms: Patient Portal/API, Work Release Note
[2024-08-17 11:11] LABS: Appearance Urine UA CLEAR; Bilirubin Urine UA NEGATIVE (NEGATIVE); Color Urine UA YELLOW; Glucose Urine UA NEGATIVE (Negative); Ketones Urine UA NEGATIVE (NEGATIVE); Leukocyte Esterase Urine UA NEGATIVE (NEGATIVE); Nitrite Urine UA NEGATIVE (Negative); Occult Blood Urine UA 2+ (Negative); Protein Urine UA NEGATIVE (Negative); Urobilinogen Urine UA 0.2 E.U./dL (0.2)
[2024-08-17] MEDS: ONDANSETRON 4 MG/2 ML INJ IV (11:12)
[2024-08-17] MEDS: KETOROLAC 30 MG/ML VIAL 15 MG IV (11:12)
[2024-08-17] MEDS: SODIUM CHLORIDE 0.9% 1,000 ML 1000 ML IV (11:12)
[2024-08-17 11:13] LABS: Add Manual Diff / Slide Review NO; Basophils Absolute Auto 0 /uL (0-100); Basophils Percent Auto 0.6 % (0-2); Eosinophils Absolute Auto 0 /uL (0-450); Eosinophils Percent Auto 0.4 % (2-4); Hematocrit 39.1 % (36-46); Hemoglobin 13.7 g/dL (12.0-16.0); Lymphocytes Absolute Auto 1900 /uL (1100-4500); Lymphocytes Percent Auto 25.3 % (25-40); Mean Corpuscular HGB Conc 34.9 % (30-36); Mean Corpuscular Hemoglobin 30.2 PG (26-34); Mean Corpuscular Volume 86.5 fL (80-100); Monocytes Absolute Auto 300 /uL (0-900); Monocytes Percent Auto 4.5 % (3-14); Neutrophils Absolute Auto 5200 /uL (1500-7000); Neutrophils Percent Auto 69.2 % (50-75); Platelet Count 205 X10^3/uL (150-400); Red Blood Cell Count 4.52 X10^6/uL (4.0-5.2); Red Cell Distribution Width 12.6 % (11.6-14.8); White Blood Cell Count 7.5 X10^3/uL (4.5-11.0)
[2024-08-17 11:21] LABS: Bacteria Urine None Seen; Culture Indicated Urine Cult Not Indicated; RBC Urine 1-5/HPF (0-5/HPF); Squamous Epithelial Cell Urine 5-10 /HPF (0-5/HPF); Urine Volume 10mL (spun); WBC Urine 0-1/HPF (0-5/HPF)
[2024-08-17 11:32] LABS: Alanine Aminotransferase 16 IU/L (<35); Albumin 4.5 g/dL (3.5-5.0); Albumin Globulin Ratio 1.7 (1.0-2.8); Alkaline Phosphatase 42 U/L (38-126); Aspartate Aminotransferase 23 IU/L (14-36); BUN Creatinine Ratio 8.2 (6-22); Bilirubin Total 0.7 mg/dL (0.2-1.3); Blood Urea Nitrogen 5 mg/dL (7-17); Carbon Dioxide 24 mmol/L (22-32); Chloride 106 mmol/L (98-107); Estimated Glomerular Filt Rate > 60 mL/min (>60); Globulin 2.7 g/dL (1.7-4.1); Glucose 86 mg/dL (70-99); HEMOLYSIS < 15 (0-50); Lipase 62 U/L (23-300); Pregnancy Test Serum,Qual Negative (Negative); Sodium 138 mmol/L (137-145); Total Protein 7.2 g/dL (6.3-8.2)
[2024-08-17] MEDS: TRAMADOL 50 MG TABLET PO (11:45)
== END 2024-08-17 13:11 | disposition home or self-care (01) ==
PROVIDERS: Emergency Provider Emergency Medicine; PCP Naturopath
DX: R10.84 Generalized abdominal pain (principal)
CPT/HCPCS: 36415; 74177; 80053; 81001; 83690; 84703; 85025; 96374; 96375; 99284; J1885; J2405; Q9967

== ENCOUNTER 2024-12-23 19:51 | Emergency (ER) | payer OTHER, SELFPAY ==
[2024-12-23] VITALS (14 sets, daily range): BP systolic 91–132; BP diastolic 53–87; PULSE 57–96; RESP 12–34; TEMP 37; O2SAT 96–100; BMI 25.5
--- NOTE | 2024-12-23 20:00 | EKG_ITS ---
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
--- NOTE | 2024-12-23 20:06 | PC.NURSE ---
Pt now awake/oriented, answering all triage questions appropriately. Reporting upper abdominal pain worse than shes ever had, and nausea.
[2024-12-23] MEDS: ONDANSETRON 4 MG/2 ML INJ IV (20:13)
--- NOTE | 2024-12-23 20:19 | EKG_ITS ---
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
--- NOTE | 2024-12-23 20:19 | DI.RAD.S_ITS ---
PROCEDURE: XR CHEST 1V INDICATIONS: epigastric pain, syncope TECHNIQUE: One view of the chest was acquired. COMPARISON: [facility], CR, XR CHEST 2V, 01/04/2024, 15:45. FINDINGS: Surgical changes and devices: None. Lungs and pleura: Lungs are clear. No pleural effusions or pneumothorax. Mediastinum: Mediastinal contours appear normal. Heart size is normal. Bones and chest wall: No suspicious bony lesions. Overlying soft tissues appear unremarkable. IMPRESSION: No acute cardiopulmonary abnormality is seen. Dictated by: Vinny Hernandez M.D. on 12/23/2024 at 21:19 Approved by: Vinny Hernandez M.D. on 12/23/2024 at 21:19
--- NOTE | 2024-12-23 20:25 | ED.ABDPAIN ---
HPI - Abdominal Pain General Chief Complaint: Abdominal Pain Stated Complaint: abd pain passed out in parking lot Time Seen by Provider: 12/23/24 20:19 Source: patient and family Mode of arrival: Family Vehicle Limitations: no limitations History of Present Illness HPI narrative: 39-year-old female with a history of IBS, dysmenorrhea who has chronic lower abdominal pain typically in the left. States for the past week she has had more epigastric pain with nausea and vomiting. She states she did have a little bit of diarrhea like stools today. She has not had any black or bloody stools no hematemesis reported. No fevers. Patient was on her way here in the parking lot when she passed out. Patient denies any chest pain but notes epigastric pain which is atypical for her usually her pain is in her lower abdomen. She states it does go little bit towards her back. She a little bit short of breath. Denies any new swelling of extremities. States she has some chronic issues with urinary urgency but it is supposed to get a bladder sling. She has not noticed any new dysuria or other changes. Patient states she was not feeling very well and feeling very shaky before she was come in. Her significant other who is with her had gone to get a wheelchair and when he came back found her on the ground. She responds to verbal stimuli in his conversant during our evaluation. She does not recall exactly what happened. Patient states she has had ex lap but no other prior surgeries she is scheduled for hysterectomy through . States that she has some adverse reactions to medication but denies any allergies. States she takes meloxicam fairly regularly. Denies tobacco, occasional alcohol, denies any recreational drugs. Related Data Home Medications ?Medication ?Instructions ?Recorded ?Confirmed vit no.95-ferrous 1 tab PO DAILY 01/15/18 07/01/22 fumarate 28 mg-folic acid 800 mcg tablet () Pravin Reed eKlli Quintana PO DAILY 02/13/22 07/01/22 Shilpi Cordon PO DAILY 02/13/22 07/01/22 ashwaganda PO DAILY 02/13/22 07/01/22 vitamin B complex 1 tab PO DAILY 02/13/22 07/01/22 buspirone 5 mg tablet 5 mg PO BID 06/10/22 07/01/22 hydroxyzine HCl 10 mg tablet 10 mg PO BEDTIME 06/28/22 07/01/22 ibuprofen 800 mg tablet 800 mg PO 3XD 03/23/24 03/23/24 methylphenidate HCl 36 mg 36 mg PO DAILY 03/23/24 03/23/24 tablet,extended release 24 hr norethindrone acetate 5 mg tablet 5 mg PO DAILY 03/23/24 03/23/24 Previous Rx's ?Medication ?Instructions ?Recorded atomoxetine 40 mg capsule 40 mg PO QAM #60 caps 07/01/22 (Strattera) prednisone 20 mg tablet 40 mg (2 x 20 mg) PO DAILY #10 tabs 09/29/22 clindamycin HCl 300 mg capsule 300 mg PO TID #30 caps 01/04/24 ondansetron HCl 4 mg tablet 4 mg PO Q6-8H PRN nausea and 01/04/24 vomiting #14 tabs ondansetron 4 mg disintegrating 4 mg PO Q8H PRN nausea and 04/19/24 tablet vomiting #14 tabs tramadol 50 mg tablet 50 mg PO Q8H PRN pain #12 tabs 08/17/24 famotidine 40 mg tablet (Pepcid) 40 mg PO DAILY #30 tabs 12/24/24 Allergies Allergy/AdvReac Type Severity Reaction Status Date / Time clindamycin Allergy Intermediate Rash Verified 02/05/24 09:38 Penicillins Allergy Intermediate Rash Verified 07/01/22 08:02 Sulfa (Sulfonamide Allergy Intermediate Rash Verified 07/01/22 08:02 Antibiotics) Review of Systems Review of Systems ROS Unobtainable: All systems reviewed & are unremarkable except as noted in HPI and below Patient History Medical History ADHD, predominantly inattentive type Depression Anxiety (~2004) Chicken pox Endometriosis (~2002) Abnormal Pap smear of cervix (~2012) History of blood transfusion Ovarian cyst IBS (irritable bowel syndrome) Surgical History Anesthesia [place] teeth removed (~2004) History of endoscopy (~2012) History of colonoscopy (~2012) History of laparoscopy (~09/24/21) Family History Sister PCOS (polycystic ovarian syndrome) Family/Other Endometriosis Mother Thyroid disease Danielito's disease Fibromyalgia POTS (postural orthostatic tachycardia syndrome) Social History household members: spouse Smoking Status: Never smoker alcohol intake: current Smoking Status: Never smoker alcohol intake frequency: holidays/special occasions only Exam Narrative Exam Narrative: GEN: well nourished, well appearing female, alert and oriented x 3, patient appears to be in mild distress. HEENT: Atraumatic, pupils are equal round reactive to light, extraocular movements are intact, nares are clear, there is no conjunctival pallor. Throat is clear without any exudates, erythema, tonsillar enlargement or uvular deviation HEART: Regular rate and rhythm without murmur, clicks, rubs. No carotid bruits, pulses are equal in upper and lower extremities LUNGS:Lungs clear to auscultation, no wheezes, rales, crackles, chest moves symmetrically, no tachypnea accessory muscle use ABD:bowel sounds normal, soft, generalized tenderness, no guarding, rebound, rigidity, no masses noted, no hepatosplenomegaly, no pulsatile mass or bruits :No CVA tenderness MSCL: Non-tender, no muscle atrophy, muscles strength 5/5 upper and lower extremities, full range of motion, normal gait NEURO:CN 2-12 intact, sensation normal. Patient has mild tremor. SKIN: No rash, erythema or other skin changes Initial Vital Signs Initial Vital Signs: Vital Signs Blood Pressure 125/87 12/23/24 19:54 Course Orders Ordered: ED Orders 12/23/24 21:33 US abdomen limited Stat 12/23/24 23:18 CT abdomen pelvis w con Stat Discontinued Medications Aspirin (Aspirin 81 Mg Chew Tab) 324 mg PO NOW ONE Stop: 12/23/24 20:20 Last Admin: 12/23/24 21:48 Dose: Not Given Documented By: JARED Sodium Chloride (Normal Saline 0.9%) 1,000 mls @ 1,000 mls/hr IV BOLUS ONE Stop: 12/23/24 21:18 Last Infusion: 12/23/24 21:53 Dose: Infused Documented By: Admin: 12/23/24 20:44 Dose: 1,000 mls/hr Documented By: JARED Metoclopramide HCl (Metoclopramide 10 Mg/2 Ml Inj) 10 mg IV NOW ONE Stop: 12/23/24 20:33 Last Admin: 12/23/24 20:44 Dose: 10 mg Documented By: JARED Morphine Sulfate (Morphine 4 Mg/Ml Inj) 4 mg IV NOW ONE Stop: 12/23/24 20:25 Last Admin: 12/23/24 20:43 Dose: 4 mg Documented By: JARED Ondansetron HCl (Ondansetron 4 Mg/2 Ml Inj) 4 mg IV NOW ONE Stop: 12/23/24 20:09 Last Admin: 12/23/24 20:13 Dose: 4 mg Documented By: JARED Pantoprazole Sodium (Pantoprazole 40 Mg Vial) 40 mg IV NOW ONE Stop: 12/23/24 20:25 Last Admin: 12/23/24 20:44 Dose: 40 mg Documented By: JARED Vital Signs Vital signs: Vital Signs - 8 hr 12/23/24 22:41 12/23/24 23:00 12/23/24 23:34 Pulse Rate 67 57 L 60 Respiratory Rate 15 13 13 Blood Pressure 110/65 Pulse Oximetry 100 96 99 Oxygen Delivery Method Room Air 12/23/24 23:52 12/23/24 23:52 12/24/24 00:02 Pulse Rate 58 L 64 Respiratory Rate 12 20 Blood Pressure 91/53 L Pulse Oximetry 99 99 Oxygen Delivery Method Room Air Room Air 12/24/24 00:02 12/24/24 00:15 12/24/24 00:15 Pulse Rate 58 L Respiratory Rate 15 Blood Pressure 98/55 L 104/65 Pulse Oximetry 100 Oxygen Delivery Method Room Air MDM - Abdominal Pain Lab Data 12/23/24 20:00 12/23/24 20:00 Labs: Lab Results 12/23/24 Range/Units 20:00 WBC 9.2 (4.5-11.0) X10^3/uL RBC 4.79 (4.0-5.2) X10^6/uL Hgb 13.8 (12.0-16.0) g/dL Hct 40.6 (36-46) % MCV 84.9 (80-100) fL MCH 28.8 (26-34) PG MCHC 33.9 (30-36) % RDW 12.5 (11.6-14.8) % Plt Count 245 (150-400) X10^3/uL Neut % (Auto) 49.0 L (50-75) % Lymph % (Auto) 44.8 H (25-40) % Reynolds % (Auto) 5.4 (3-14) % Eos % (Auto) 0.2 L (2-4) % Baso % (Auto) 0.6 (0-2) % Neut # (Auto) 4500 (4523-8840) /uL Lymph # (Auto) 4100 (4227-1506) /uL Reynolds # (Auto) 500 (0-900) /uL Eos # (Auto) 0 (0-450) /uL Baso # (Auto) 100 (0-100) /uL Sodium 137 (137-145) mmol/L Potassium 3.6 (3.4-5.1) mmol/L Chloride 103 (98-107) mmol/L Carbon Dioxide 24 (22-32) mmol/L BUN 8 (7-17) mg/dL Creatinine 0.64 (0.52-1.04) mg/dL Estimated GFR > 60 (>60) mL/min BUN/Creatinine Ratio 12.5 (6-22) Glucose 100 H (70-99) mg/dL Lactate 1.2 (0.7-2.1) mmol/L Calcium 9.3 (8.4-10.2) mg/dL Magnesium 2.1 (1.6-2.3) mg/dL Total Bilirubin 0.7 (0.2-1.3) mg/dL AST 54 H (14-36) IU/L ALT 57 H (<35) IU/L Alkaline Phosphatase 63 (38-126) U/L Troponin I < 0.012 (0.01-0.034) ng/mL NT-Pro-B Natriuret Pep 92 (<125) pg/mL Total Protein 8.0 (6.3-8.2) g/dL Albumin 4.8 (3.5-5.0) g/dL Globulin 3.2 (1.7-4.1) g/dL Albumin/Globulin Ratio 1.5 (1.0-2.8) Lipase 61 (23-300) U/L Serum , Qual Negative (Negative) Point of care testing: Point of Care Testing Glucose POC 105 Urine Dip Bedside Urine Glucose Negative Bedside Urine Bilirubin - Negative Bedside Urine Ketone - Negative Urine Specific Gore 1.005 Bedside Urine Occult Blood - Negative Bedside Urine pH 7.5 Bedside Urine Protein - Negative Bedside Urine Urobilinogen - Negative Bedside Urine Nitrite - Negative Bedside Urine Leukocytes - Negative Esterase ECG Data Attestation: I personally reviewed and interpreted this ECG as follows: Prior ECG tracings: not available for review Interpretation: Undetermined rhythm rate 81 MT 120 QRS 88 QTC of 480, patient is tremulous on exam and likely has some motion artifact. Repeat EKG shows sinus rhythm with a sinus arrhythmia rate of 68 MT 126 QRS 88 QTC of 455. No acute ST elevation or depression appreciated. Nonspecific change from September of 2022. MDM Narrative Medical decision making narrative: Show normal white count, hemoglobin and platelets, chemistries are appropriate BUN and creatinine is normal, glucose is 100, lactate 1.2 AST ALT are 54 and 57 bilirubin is 0.7, lipase is 61, troponin is less than 0.012 with a BNP of 92 is negative Urine negative for nitrates leuks or blood. EKG undetermined rhythm rate 81, patient likely had some motion artifact was repeated shows sinus rhythm with a sinus arrhythmia nonspecific change rate of 68 Chest x-ray shows no acute cardiopulmonary abnormality. Abdominal ultrasound right upper quadrant shows no cause for patient's pain. Patient has a cluster of cysts with a in the right hepatic lobe measuring 5 x 6 by 7 mm. No gallstones no wall thickening no pericholecystic edema. Negative sonographic Lemus's. Biliary ducts are normal, visualized portions of pancreas are normal. No free fluid. CT abdomen pelvis shows no acute findings Patient had Zofran, Reglan, pantoprazole, fluids and morphine. Rechecked patient feels much improved afterwards. Reviewed all the patient's findings suspect patient may have her versus gastritis, we did review her AST ALT are slightly elevated she would have some small cyst in the hepatic lobe. Discussed return precautions all questions answered. Discharge Plan Departure Patient Disposition: Home Clinical Impression: Epigastric abdominal pain Instructions: DI for Epigastric Pain Activity Restrictions/Additional Instructions: Follow up for rechecked your workup today showed a mild elevation in your liver enzymes your AST and ALT but no other major changes to your labs, was noted you have some hepatic cysts. It is possible that you could have an ulcer I would recommend taking Pepcid 40 mg daily for the next month to see if this improves your symptoms. I would recommend follow up if you are having persistent symptoms for upper endoscopy. A prescription for Pepcid was sent to [facility] pharmacy in [place]. NSAIDs such as ibuprofen, meloxicam, leave and naproxen can cause irritation to the stomach and ulcers. You did not have to stop these medications but I would decrease usage if able. Please return if you have fevers, new or worsening abdominal back or flank pain, persistent vomiting, lightheadedness or passing out, new swelling of your extremities or other new or concerning changes. Prescriptions: New famotidine [Pepcid] 40 mg tablet 40 mg PO DAILY Qty: 30 0RF No Action ibuprofen 800 mg tablet 800 mg PO 3XD methylphenidate HCl 36 mg tablet extended release 24hr 36 mg PO DAILY norethindrone acetate 5 mg tablet 5 mg PO DAILY hydroxyzine HCl 10 mg tablet 10 mg PO BEDTIME buspirone 5 mg tablet 5 mg PO BID atomoxetine [Strattera] 40 mg capsule 40 mg PO QAM Qty: 60 0RF Rx Instructions: After 3 days if ineffective and no side effects may increase to 2 caps daily ashwaganda PO DAILY Rx Instructions: 1 tab by mouth daily vitamin B complex Tablet 1 tab PO DAILY Shilpi Cesar Cordon PO DAILY Pravin Reed Fe Lilian PO DAILY PNV no.95-ferrous fumarate-FA [] 28 mg iron- 800 mcg Tablet 1 tab PO DAILY prednisone 20 mg tablet 40 mg PO DAILY Qty: 10 0RF clindamycin HCl 300 mg capsule 300 mg PO TID Qty: 30 0RF ondansetron HCl 4 mg tablet 4 mg PO Q6-8H PRN (Reason: nausea and vomiting) Qty: 14 0RF tramadol 50 mg tablet 50 mg PO Q8H PRN (Reason: pain) Qty: 12 0RF ondansetron 4 mg tablet,disintegrating 4 mg PO Q8H PRN (Reason: nausea and vomiting) Qty: 14 0RF Referrals: Zuri Hicks ND [Primary Care Provider, Naturopathy] Stand Alone Forms: Patient Portal/API
[2024-12-23 20:27] LABS: Add Manual Diff / Slide Review NO; Hematocrit 40.6 % (36-46); Hemoglobin 13.8 g/dL (12.0-16.0); Lymphocytes Absolute Auto 4100 /uL (1100-4500); Mean Corpuscular HGB Conc 33.9 % (30-36); Mean Corpuscular Hemoglobin 28.8 PG (26-34); Mean Corpuscular Volume 84.9 fL (80-100); Platelet Count 245 X10^3/uL (150-400)
[2024-12-23 20:34] LABS: Lactate (Lactic Acid) 1.2 mmol/L (0.7-2.1)
[2024-12-23 20:35] LABS: Alanine Aminotransferase 57 IU/L (<35); Albumin 4.8 g/dL (3.5-5.0); Albumin Globulin Ratio 1.5 (1.0-2.8); Alkaline Phosphatase 63 U/L (38-126); Blood Urea Nitrogen 8 mg/dL (7-17); Calcium 9.3 mg/dL (8.4-10.2); Carbon Dioxide 24 mmol/L (22-32); Chloride 103 mmol/L (98-107); Estimated Glomerular Filt Rate > 60 mL/min (>60); Globulin 3.2 g/dL (1.7-4.1); Glucose 100 mg/dL (70-99); HEMOLYSIS < 15 (0-50); Lipase 61 U/L (23-300); Sodium 137 mmol/L (137-145); Total Protein 8.0 g/dL (6.3-8.2)
[2024-12-23 20:39] LABS: Magnesium 2.1 mg/dL (1.6-2.3); Potassium 3.6 mmol/L (3.4-5.1)
[2024-12-23 20:41] LABS: Pregnancy Test Serum,Qual Negative (Negative)
[2024-12-23] MEDS: MORPHINE 4 MG/ML INJ IV (20:43)
[2024-12-23] MEDS: PANTOPRAZOLE 40 MG VIAL IV (20:44)
[2024-12-23] MEDS: METOCLOPRAMIDE 10 MG/2 ML INJ IV (20:44)
[2024-12-23] MEDS: SODIUM CHLORIDE 0.9% 1,000 ML 1000 ML IV (20:44)
[2024-12-23 20:47] LABS: NT-proBNP (BNP-Adult 18+) 92 pg/mL (<125); Troponin I < 0.012 ng/mL (0.01-0.034)
--- NOTE | 2024-12-23 21:33 | DI.US.S_ITS ---
PROCEDURE: US ABDOMEN LIMITED INDICATIONS: epigastric pain, n/v TECHNIQUE: Real-time scanning was performed of the abdominal and retroperitoneal organs, with image documentation. COMPARISON: None. FINDINGS: Liver: Liver is normal in size and homogeneous in echotexture. Cluster of cysts within the right hepatic lobe measuring 5 x 7 x 6 mm. Gallbladder: No gallstones. No wall thickening. No pericholecystic edema. Negative sonographic Lemus's sign. Biliary ducts: Intrahepatic bile ducts are non-dilated. Extrahepatic bile duct caliber measures 4.2 mm. Normal is 6-7 mm or less in diameter, or 10 mm or less post-cholecystectomy. Pancreas: Visualized portions of the pancreas are sonographically normal. Miscellaneous: No free abdominal fluid. IMPRESSION: No cause for patient's pain is identified. Dictated by: Quincy Zavala M.D. on 12/23/2024 at 22:32 Approved by: Quincy Zavala M.D. on 12/23/2024 at 22:33
--- NOTE | 2024-12-23 21:34 | EKG_ITS ---
[facility] [id number] [address] Test Date: 2024-12-23 Pat Name: Vanna Eli Department: Room: Gender: Female Tuckpointer: FAHAD RICH : 1985 Requested By: Order Number: [id number] Reading MD: Miles Sanchez MD Measurements Intervals [place] Rate: 81 P: 107 TX: 120 QRS: 27 QRSD: 88 T: 73 QT: 414 QTc: 480 Interpretive Statements Sinus Rhythm Nonspecific ST and T wave abnormality Prolonged QT Electronically Signed On 12-25-2024 8:49:50 PDT by Miles Sanchez MD
--- NOTE | 2024-12-23 23:18 | DI.CT.S_ITS ---
PROCEDURE: CT ABDOMEN PELVIS W CON INDICATIONS: epigastric pain TECHNIQUE: After the administration of intravenous contrast, axial sections acquired from the lung bases to the pubic symphysis. Coronal and sagittal reformats were performed. For radiation dose reduction, the following was used: automated exposure control, adjustment of mA and/or kV according to patient size. COMPARISON: [facility], CT, CT ABDOMEN PELVIS W CON, 08/17/2024, 11:47. FINDINGS: Image quality: Diagnostic. Lower Chest: No significant findings. ABDOMEN: Liver: No solid mass. Gallbladder: No radiopaque gallstones or wall thickening. Biliary ducts: No biliary dilation. Pancreas: No ductal dilation. Spleen: Size is within normal limits. Adrenal Glands: No adrenal nodules. Kidneys and Ureters: No hydronephrosis. No solid mass. No complex renal cystic lesion which requires follow up. Stomach and Bowel: Normal colonic caliber, without significant wall thickening. Normal appendix.3 Peritoneum: No abnormal intraperitoneal fluid. No free air. Ventral Wall: No significant ventral hernia. Abdominal Nodes: No retroperitoneal or mesenteric adenopathy by size criteria. Vessels: Aorta and inferior vena cava are normal in size. PELVIS: Pelvic Organs: Unremarkable. Bladder: No bladder wall thickening, accounting for underdistention. Pelvic Nodes: No enlarged lymph nodes. Miscellaneous: No inguinal hernias are seen. Bones: No aggressive osseous abnormality. IMPRESSION: No acute findings within the abdomen or pelvis. Dictated by: Quincy Zavala M.D. on 12/23/2024 at 23:43 Approved by: Quincy Zavala M.D. on 12/23/2024 at 23:47
--- NOTE | 2024-12-23 23:25 | PC.NURSE ---
Pt to imaging via ED stretcher with diploma pharmacy technician
--- NOTE | 2024-12-23 23:55 | PC.NURSE ---
Pt resting quietly with eyes closed, resps even and not labored. No distress noted at this time. Pt rouses easily to verbal stimuli and engages with RN appropriately. Continued plan of care discussed. Pt reconnected to cardiac, resp, blood pressure, and pulse ox monitors with alarms on and audible. VS stable at this time. Call light within reach. No other requests or complaints at this time. remains at bedside.
[2024-12-24 00:02] VITALS: BP 98/55; PULSE 64; RESP 20; O2SAT 99
[2024-12-24 00:15] VITALS: BP 104/65; PULSE 58; RESP 15; O2SAT 100
--- NOTE | 2024-12-24 00:39 | PC.NURSE ---
Taking po fluids without difficulty. Ambulatory to restroom without difficulty or assistance with 1 person standby.
== END 2024-12-24 00:46 | disposition home or self-care (01) ==
PROVIDERS: Emergency Provider Emergency Medicine; PCP Naturopath
DX: R10.13 Epigastric pain (principal); R11.2 Nausea with vomiting, unspecified; R55 Syncope and collapse
CPT/HCPCS: 36415; 71045; 74177; 76705; 80053; 81003; 82962; 83605; 83690; 83735; 83880; 84484; 84703; 85025; 93005; 96361; 96374; 96375; 99284; J2272; J2405; J2470; J2765; J7030; Q9967